=== PATIENT | male | born 1975 | race Caucasian/White ===

== ENCOUNTER 2017-11-22 11:20 | Inpatient (IN) | payer MEDICAID ==
[~2017-11-22] VITALS: Ht 180.3 cm; Wt 63.2 kg
[~2017-11-22 11:20] MED LIST: ESCI10TA PO; OMEP20TA23 PO; THI100T PO
[2017-11-22] MEDS ORDERED: normal saline 1000ML IV soln IVB ONE (11:30)
[2017-11-22 11:49] LABS: BASOPHILS % (AUTO) 0.4 % (0-1); EOSINOPHILS % (AUTO) 0 % (0-6); HEMOGLOBIN 14.6 g/dl (14.0-17.9); LYMPHOCYTES # (AUTO) 0.5 X10'3 (1.1-4.8); LYMPHOCYTES % (AUTO) 11.9 % (21-51); MEAN CORPUSCULAR HEMOGLOBIN 33.5 PG (27.0-31.0); MEAN CORPUSCULAR HGB CONC 34.8 % (33.0-36.5); MEAN CORPUSCULAR VOLUME 96.3 FL (78-98); MEAN PLATELET VOLUME 7.7 FL (7.4-10.4); MONOCYTES # (AUTO) 0.5 X10'3 (0-0.9); MONOCYTES % (AUTO) 11.9 % (2-12); NEUTROPHILS # (AUTO) 3.2 X10'3 (1.8-7.7); NEUTROPHILS % (AUTO) 75.8 % (42-75); RED BLOOD COUNT 4.36 X10'6 (4.70-6.10); RED CELL DISTRIBUTION WIDTH 13.5 % (11.5-14.5); WHITE BLOOD COUNT 4.2 X10'3 (4.5-11.0)
[2017-11-22 12:11] LABS: PLATELET COUNT 46 X10'3 (140-440)
[2017-11-22 12:12] LABS: ALANINE AMINOTRANSFERASE 130 U/L (12-78); ALBUMIN 2.9 G/DL (3.4-5.0); ALKALINE PHOSPHATASE 77 IU/L (46-116); ANION GAP 13 (8-16); ASPARTATE AMINO TRANSFERASE 159 U/L (10-37); BILIRUBIN,TOTAL 2.1 MG/DL (0.1-1.0); BLOOD UREA NITROGEN 5 MG/DL (7-18); BUN/CREATININE RATIO 8.3 (5.4-32.0); CALCIUM 6.4 MG/DL (8.5-10.1); CHLORIDE 98 MMOL/L (99-107); GLUCOSE 102 MG/DL (70-104); PHOSPHORUS 3.7 MG/DL (2.3-4.5); SODIUM 137 MMOL/L (135-145); TOTAL CARBON DIOXIDE 25.6 MMOL/L (24-32); TOTAL PROTEIN 5.9 G/DL (6.4-8.2); eGFR > 90 ML/MIN
[2017-11-22 12:13] LABS: MAGNESIUM 0.3 MG/DL (1.5-2.4); POTASSIUM 2.7 MMOL/L (3.5-5.1)
[2017-11-22] MEDS ORDERED: potassium Cl 20 mEq SR tablet PO ONE (12:20)
[2017-11-22] MEDS ORDERED: magnesium 2GM in 50ml NS 50 ML IV ONE (12:20)
[2017-11-22] MEDS ORDERED: potassium Cl 10 mEq/100mL bag IV ONE (12:20)
[2017-11-22] MEDS ORDERED: LORazepam 2 mg/ml vial IV ONE (12:35)
[2017-11-22] MEDS: potassium 10mEq/100ml NS w/LIDOcaine (10mg/bag) IV SCH ×2 (13:06→14:19)
[2017-11-22] MEDS ORDERED: metoclopramide 5 mg/ml inj IV PRN (13:35)
[2017-11-22] MEDS ORDERED: potassium Cl 20 mEq SR tablet PO PRN (13:35)
[2017-11-22] MEDS ORDERED: magnesium hydroxide 30ml (MOM) UD suspension PO PRN (13:35)
[2017-11-22] MEDS ORDERED: potassium Cl 40MEQ/NS 500ml 500 ML IV PRN ×2 (13:35)
[2017-11-22] MEDS ORDERED: morphine 2 MG/ML inj. syringe IV PRN (13:35)
[2017-11-22] MEDS ORDERED: ondansetron/PF 4mg/2ml inj IV PRN (13:35)
[2017-11-22] MEDS ORDERED: acetaminophen 325mg tablet PO PRN (13:35)
[2017-11-22] MEDS ORDERED: magnesium 4gm in 100ml NS 100 ML IV PRN (13:35)
[2017-11-22] MEDS ORDERED: mag hydrox/Alum hydrox/simeth 30ml oral suspension PO PRN (13:35)
[2017-11-22] MEDS ORDERED: HYDROcodone/acetaminophen 5mg/325mg tablet PO PRN (13:35)
[2017-11-22] MEDS: normal saline 1000ml 1,000 ML IV SCH ×2 (14:19→23:51)
[2017-11-22] MEDS: magnesium 2GM in 50ml NS 50 ML IV PRN (14:19)
[2017-11-22 15:00] VITALS: BP 114/80
[2017-11-22] MEDS: LORazepam 2 mg/ml vial IV PRN ×2 (16:42→23:47)
[2017-11-22] MEDS ORDERED: ARIP2TAB37 PO (17:52)
[2017-11-22] MEDS ORDERED: MIRT15TA PO (17:52)
[2017-11-22] MEDS ORDERED: HYDROXYZINE HCL (17:52)
[2017-11-22] MEDS ORDERED: ESCI20TA38 PO (17:52)
[2017-11-22 20:00] VITALS: BP 103/78
[2017-11-23] VITALS: BP 106/76
[2017-11-23 00:34] LABS: POTASSIUM 2.5 MMOL/L (3.5-5.1)
[2017-11-23 00:35] LABS: MAGNESIUM 0.9 MG/DL (1.5-2.4)
[2017-11-23] MEDS: potassium Cl 20 mEq SR tablet PO PRN ×3 (01:31→12:52)
[2017-11-23 05:58] LABS: BASOPHILS % (AUTO) 0.7 % (0-1); EOSINOPHILS % (AUTO) 0.7 % (0-6); HEMATOCRIT 41.1 % (42.0-52.0); HEMOGLOBIN 14.4 g/dl (14.0-17.9); LYMPHOCYTES # (AUTO) 0.8 X10'3 (1.1-4.8); LYMPHOCYTES % (AUTO) 18.3 % (21-51); MEAN CORPUSCULAR HEMOGLOBIN 33.8 PG (27.0-31.0); MEAN CORPUSCULAR HGB CONC 35.1 % (33.0-36.5); MEAN CORPUSCULAR VOLUME 96.2 FL (78-98); MEAN PLATELET VOLUME 8.9 FL (7.4-10.4); MONOCYTES # (AUTO) 0.6 X10'3 (0-0.9); MONOCYTES % (AUTO) 14.4 % (2-12); NEUTROPHILS # (AUTO) 2.7 X10'3 (1.8-7.7); NEUTROPHILS % (AUTO) 65.9 % (42-75); RED BLOOD COUNT 4.27 X10'6 (4.70-6.10); WHITE BLOOD COUNT 4.2 X10'3 (4.5-11.0)
[2017-11-23 06:14] LABS: PLATELET COUNT 48 X10'3 (140-440)
[2017-11-23 06:22] LABS: ALBUMIN 2.8 G/DL (3.4-5.0); ANION GAP 9 (8-16); BLOOD UREA NITROGEN 4 MG/DL (7-18); BUN/CREATININE RATIO 5.7 (5.4-32.0); CALCIUM 7.1 MG/DL (8.5-10.1); CHLORIDE 102 MMOL/L (99-107); GLUCOSE 108 MG/DL (70-104); MAGNESIUM 2.2 MG/DL (1.5-2.4); SODIUM 142 MMOL/L (135-145); eGFR > 90 ML/MIN
[2017-11-23 06:24] LABS: POTASSIUM 2.5 MMOL/L (3.5-5.1)
[2017-11-23 07:00] VITALS: BP 115/96
[2017-11-23] MEDS: LORazepam 2 mg/ml vial IV PRN ×8 (07:04→21:05)
[2017-11-23] MEDS: thiamine 100mg tablet PO SCH (07:05)
[2017-11-23] MEDS: pantoprazole 40mg Tablet.DR PO SCH (07:05)
[2017-11-23] MEDS: folic acid 1mg tablet PO SCH (07:05)
[2017-11-23] MEDS: magnesium 2GM in 50ml NS 50 ML IV PRN (07:06)
[2017-11-23] MEDS: K and/or MAG REPLACEMENT MC SCH (07:12)
[2017-11-23] MEDS ORDERED: OMEPRAZOLE MAGNESIUM PO SCH (08:00)
[2017-11-23] MEDS ORDERED: thiamine 100mg tablet PO SCH (08:00)
[2017-11-23] MEDS: citalopram 20mg tablet PO SCH (08:00)
[2017-11-23] MEDS: normal saline 1000ml 1,000 ML IV SCH ×2 (09:32→13:01)
[2017-11-23] MEDS ORDERED: haloperidol lactate 5mg/ml inj IM PRN (10:40)
[2017-11-23] MEDS ORDERED: dextrose 50%-water 50ml dispensing syringe IV PRN (10:40)
[2017-11-23 14:25] VITALS: BP 111/70
[2017-11-23 16:34] LABS: MAGNESIUM 1.6 MG/DL (1.5-2.4); POTASSIUM 3.1 MMOL/L (3.5-5.1)
[2017-11-23] MEDS: nicotine 21mg patch - 24 hr TD SCH (17:41)
[2017-11-23 20:00] VITALS: BP 108/74
[2017-11-23] MEDS: mirtazapine 15mg tablet PO SCH ×2 (21:00→22:29)
[2017-11-24] VITALS: BP 92/67
[2017-11-24] MEDS: normal saline 1000ml 1,000 ML IV SCH ×2 (00:48→09:37)
[2017-11-24 05:41] LABS: BASOPHILS % (AUTO) 0.6 % (0-1); EOSINOPHILS # (AUTO) 0.1 X10'3 (0-0.9); EOSINOPHILS % (AUTO) 1.6 % (0-6); HEMATOCRIT 37.3 % (42.0-52.0); HEMOGLOBIN 12.8 g/dl (14.0-17.9); LYMPHOCYTES # (AUTO) 0.9 X10'3 (1.1-4.8); LYMPHOCYTES % (AUTO) 27.4 % (21-51); MEAN CORPUSCULAR HEMOGLOBIN 33.3 PG (27.0-31.0); MEAN CORPUSCULAR HGB CONC 34.3 % (33.0-36.5); MEAN PLATELET VOLUME 8.9 FL (7.4-10.4); MONOCYTES # (AUTO) 0.5 X10'3 (0-0.9); MONOCYTES % (AUTO) 14.3 % (2-12); NEUTROPHILS # (AUTO) 1.8 X10'3 (1.8-7.7); NEUTROPHILS % (AUTO) 56.1 % (42-75); RED BLOOD COUNT 3.85 X10'6 (4.70-6.10); RED CELL DISTRIBUTION WIDTH 13.9 % (11.5-14.5); WHITE BLOOD COUNT 3.2 X10'3 (4.5-11.0)
[2017-11-24 05:47] LABS: ALBUMIN 2.5 G/DL (3.4-5.0); ANION GAP 8 (8-16); BLOOD UREA NITROGEN 4 MG/DL (7-18); CALCIUM 6.7 MG/DL (8.5-10.1); CHLORIDE 107 MMOL/L (99-107); GLUCOSE 98 MG/DL (70-104); MAGNESIUM 1.2 MG/DL (1.5-2.4); SODIUM 142 MMOL/L (135-145); TOTAL CARBON DIOXIDE 26.6 MMOL/L (24-32); eGFR > 90 ML/MIN
[2017-11-24 06:11] LABS: PLATELET COUNT 44 X10'3 (140-440)
[2017-11-24 07:05] VITALS: BP 111/78
[2017-11-24] MEDS: folic acid 1mg tablet PO SCH (07:36)
[2017-11-24] MEDS: pantoprazole 40mg Tablet.DR PO SCH (07:36)
[2017-11-24] MEDS: citalopram 20mg tablet PO SCH (07:36)
[2017-11-24] MEDS: magnesium Cl slow-release 64mg tablet PO PRN ×2 (07:37→14:01)
[2017-11-24] MEDS: thiamine 100mg tablet PO SCH (07:37)
[2017-11-24] MEDS: nicotine 21mg patch - 24 hr TD SCH (07:38)
[2017-11-24] MEDS: potassium Cl 20 mEq SR tablet PO PRN ×2 (07:38→12:51)
[2017-11-24] MEDS: K and/or MAG REPLACEMENT MC SCH (07:39)
[2017-11-24] MEDS: LORazepam 2 mg/ml vial IV PRN ×5 (07:45→17:21)
[2017-11-24 10:45] LABS: C DIFF ANTIGEN NEGATIVE (NEGATIVE); C DIFF SPECIMEN=DIARRHEA? ACCEPTABLE; C DIFFICILE TOXINS A&B NEGATIVE (Neg)
[2017-11-24 11:00] VITALS: BP 111/78
[2017-11-24] MEDS ORDERED: LORA1TAB PO (17:34)
== END 2017-11-24 18:22 | disposition home or self-care (01) | DRG 775 ==
LOC: ER 11:20 → ED HOLD 13:32 → EDBEDREQ 14:38 → SUR 3N 14:58
PROVIDERS: ADMIT Internal Medicine; ATTEND Internal Medicine
DX: F10.239 Alcohol dependence with withdrawal, unspecified (principal); E43 Unspecified severe protein-calorie malnutrition; D69.6 Thrombocytopenia, unspecified; K70.10 Alcoholic hepatitis without ascites; E83.42 Hypomagnesemia; E86.0 Dehydration; E87.6 Hypokalemia; Y90.0 Blood alcohol level of less than 20 mg/100 ml; F12.90 Cannabis use, unspecified, uncomplicated; F17.210 Nicotine dependence, cigarettes, uncomplicated; I10 Essential (primary) hypertension; Z79.899 Other long term (current) drug therapy; Z71.6 Tobacco abuse counseling; Z68.1 Body mass index [BMI] 19.9 or less, adult
CPT/HCPCS: 36415; 80048; 80053; 80320; 82948; 83735; 84100; 84132; 84443; 85025; 87070; 87324; 87449; 96360; 99285; J1630; J2060; J3475; J3480; J7030

== ENCOUNTER 2018-03-09 08:56 | Inpatient (IN) | payer MEDICAID ==
[~2018-03-09] VITALS: Ht 180.3 cm; Wt 82.7 kg
[~2018-03-09 08:56] MED LIST changes: +0.9 % SODIUM CHLORIDE 10 ML VIAL ONE; +ARIP2TAB37 PO; -ESCI10TA PO; +ESCI20TA38 PO; +HYDROXYZINE HCL; +MIRT15TA PO; +amiodarone 50MG/ML inj IV ONE; +etomidate 2mg/ml inj. ONE; +rocuronium 10mg/ml inj IV ONE
[2018-03-09] MEDS ORDERED: phenobarbital inj 260 MG in normal saline 100ml IV soln 99 ML IV STA (09:29)
[2018-03-09] MEDS ORDERED: normal saline 1000ML IV soln IVB ONE ×2 (09:30→10:25)
[2018-03-09] MEDS ORDERED: thiamine inj. 100 MG in normal saline 100ml IV soln 99 ML IV ONE (09:30)
[2018-03-09] MEDS ORDERED: ondansetron/PF 4mg/2ml inj IV ONE (09:30)
[2018-03-09] MEDS ORDERED: magnesium 2GM in 50ml NS 50 ML IV ONE (09:30)
[2018-03-09 09:40] LABS: BASOPHILS % (AUTO) 0.3 % (0-1); EOSINOPHILS % (AUTO) 0.2 % (0-6); HEMATOCRIT 49.8 % (42.0-52.0); LYMPHOCYTES # (AUTO) 1.3 X10'3 (1.1-4.8); LYMPHOCYTES % (AUTO) 13.7 % (21-51); MEAN CORPUSCULAR HEMOGLOBIN 32.8 PG (27.0-31.0); MEAN CORPUSCULAR HGB CONC 34.1 % (33.0-36.5); MEAN PLATELET VOLUME 7.9 FL (7.4-10.4); MONOCYTES # (AUTO) 0.8 X10'3 (0-0.9); MONOCYTES % (AUTO) 8.8 % (2-12); NEUTROPHILS # (AUTO) 7.2 X10'3 (1.8-7.7); RED BLOOD COUNT 5.18 X10'6 (4.70-6.10); RED CELL DISTRIBUTION WIDTH 14.6 % (11.5-14.5); WHITE BLOOD COUNT 9.3 X10'3 (4.5-11.0)
[2018-03-09 09:52] LABS: PLATELET COUNT 91 X10'3 (140-440)
[2018-03-09 09:59] LABS: ALANINE AMINOTRANSFERASE 63 U/L (12-78); ALBUMIN 3.3 G/DL (3.4-5.0); ALBUMIN/GLOBULIN RATIO 0.9 (1.1-1.5); ALKALINE PHOSPHATASE 90 IU/L (46-116); ANION GAP 23 (8-16); ASPARTATE AMINO TRANSFERASE 92 U/L (10-37); BILIRUBIN,TOTAL 1.5 MG/DL (0.1-1.0); BLOOD UREA NITROGEN 9 MG/DL (7-18); BUN/CREATININE RATIO 7.7 (5.4-32.0); CALCIUM 6.9 MG/DL (8.5-10.1); CHLORIDE 100 MMOL/L (99-107); CREATININE 1.17 MG/DL (0.60-1.10); ETHANOL < 0.010 GM/DL (0.0-0.010); GLUCOSE 173 MG/DL (70-104); SODIUM 140 MMOL/L (135-145); TOTAL CARBON DIOXIDE 16.8 MMOL/L (24-32); eGFR 68 ML/MIN
[2018-03-09 10:04] LABS: MAGNESIUM 0.9 MG/DL (1.5-2.4); POTASSIUM 2.8 MMOL/L (3.5-5.1)
[2018-03-09] MEDS ORDERED: potassium Cl 20 mEq SR tablet PO ONE (10:25)
[2018-03-09] MEDS: potassium 10mEq/100ml NS w/LIDOcaine (10mg/bag) IV SCH ×2 (10:48→12:25)
[2018-03-09] MEDS ORDERED: normal saline 1000ML IV soln IV ONE (11:25)
[2018-03-09] MEDS ORDERED: CefTRIAXone 2gm/D5W 50ml 50 ML IV ONE (11:25)
[2018-03-09] MEDS ORDERED: azithromycin 250mg tablet PO ONE (11:25)
[2018-03-09] MEDS ORDERED: phenobarbital inj 130 MG in normal saline 100ml IV soln 99 ML IV PRN (11:45)
[2018-03-09] MEDS ORDERED: acetaminophen 325mg tablet PO PRN (11:50)
[2018-03-09] MEDS ORDERED: mag hydrox/Alum hydrox/simeth 30ml oral suspension PO PRN (11:50)
[2018-03-09] MEDS ORDERED: ondansetron/PF 4mg/2ml inj IV PRN (11:50)
[2018-03-09] MEDS ORDERED: magnesium hydroxide 30ml (MOM) UD suspension PO PRN (11:50)
[2018-03-09] MEDS ORDERED: thiamine inj. 100 MG in normal saline 100ml IV soln 100 ML IV ONE (12:10)
[2018-03-09] MEDS: normal saline 1000ml 1,000 ML IV SCH ×2 (12:25→21:57)
[2018-03-09 13:12] LABS: CLARITY,URINE CLEAR (Clear); COLOR,URINE YELLOW (Yellow); GLUCOSE, URINE NEGATIVE (Neg); KETONES,URINE TRACE mg/dl (Neg); LEUKOCYTE ESTERASE ,URINE NEGATIVE (Neg); OCCULT BLOOD,URINE TRACE-INTACT (Neg); PROTEIN,URINE 100 mg/dl (Neg)
[2018-03-09 13:13] LABS: UA COLLECTION TYPE CLN CATCH MIDSTREAM
[2018-03-09 13:18] LABS: NITRITES, URINE NEGATIVE (Neg)
[2018-03-09 13:19] LABS: AMORPHOUS URATES 1+; BACTERIA,URINE FEW /HPF (Neg); HYALINE CASTS 0-3 /LPF (NEGATIVE); MUCUS STRANDS FEW /LPF (Neg); RBC,URINE 0-2 /HPF (0-2); SQUAMOUS EPITHELIAL CELL,UR FEW /LPF (FEW); WBC,URINE 0-4 /HPF (0-4)
[2018-03-09 13:29] LABS: URINE AMPHETAMINE SCREEN NEGATIVE (Neg); URINE BARBITUATE SCREEN POSITIVE (Neg); URINE BENZODIAZEPINES SCREEN NEGATIVE (Neg); URINE CANNABINOID SCREEN POSITIVE (Neg); URINE COCAINE SCREEN NEGATIVE (Neg); URINE METHADONE SCREEN NEGATIVE (Neg); URINE OPIATE SCREEN NEGATIVE (Neg); URINE PHENCYCLIDINE SCREEN NEGATIVE (Neg)
[2018-03-09 14:20] VITALS: BP 101/71
[2018-03-09] MEDS: LORazepam 1 MG tablet PO PRN ×4 (14:38→21:46)
[2018-03-09 15:00] VITALS: BP 101/78
[2018-03-09 19:00] VITALS: BP 103/64
[2018-03-09] MEDS ORDERED: potassium Cl 20 mEq SR tablet PO PRN (21:40)
[2018-03-09] MEDS ORDERED: magnesium Cl slow-release 64mg tablet PO PRN (21:40)
[2018-03-09] MEDS ORDERED: magnesium 2GM in 50ml NS 50 ML IV PRN (21:40)
[2018-03-09] MEDS ORDERED: potassium Cl 40MEQ/NS 500ml 500 ML IV PRN ×2 (21:40)
[2018-03-09] MEDS ORDERED: magnesium 4gm in 100ml NS 100 ML IV PRN (21:40)
[2018-03-09] MEDS: HYDROcodone/acetaminophen 10/325mg tab PO PRN (21:46)
[2018-03-09] MEDS: mirtazapine 15mg tablet PO SCH (21:46)
[2018-03-09] MEDS: citalopram 20mg tablet PO SCH (21:47)
[2018-03-09 23:00] VITALS: BP 104/78
[2018-03-09] MEDS: LORazepam 2 mg/ml vial IV PRN (23:57)
[2018-03-10] VITALS (12 sets, daily range): BP systolic 79–139; BP diastolic 65–99
[2018-03-10 00:30] LABS: MAGNESIUM 1.1 MG/DL (1.5-2.4)
[2018-03-10 01:00] LABS: POTASSIUM 2.7 MMOL/L (3.5-5.1)
[2018-03-10] MEDS: potassium Cl 20 mEq SR tablet PO PRN ×2 (01:03→05:14)
[2018-03-10] MEDS: LORazepam 2 mg/ml vial IV PRN ×6 (02:03→16:09)
[2018-03-10 05:23] LABS: BASOPHILS % (AUTO) 0.3 % (0-1); EOSINOPHILS # (AUTO) 0.1 X10'3 (0-0.9); EOSINOPHILS % (AUTO) 1.2 % (0-6); HEMATOCRIT 40.5 % (42.0-52.0); HEMOGLOBIN 13.9 g/dl (14.0-17.9); LYMPHOCYTES # (AUTO) 1.5 X10'3 (1.1-4.8); LYMPHOCYTES % (AUTO) 17.7 % (21-51); MEAN CORPUSCULAR HEMOGLOBIN 33.4 PG (27.0-31.0); MEAN CORPUSCULAR HGB CONC 34.3 % (33.0-36.5); MEAN CORPUSCULAR VOLUME 97.6 FL (78-98); MEAN PLATELET VOLUME 8.5 FL (7.4-10.4); MONOCYTES # (AUTO) 0.9 X10'3 (0-0.9); MONOCYTES % (AUTO) 10.8 % (2-12); NEUTROPHILS # (AUTO) 6.1 X10'3 (1.8-7.7); PLATELET COUNT 73 X10'3 (140-440); RED BLOOD COUNT 4.15 X10'6 (4.70-6.10); RED CELL DISTRIBUTION WIDTH 14.1 % (11.5-14.5); WHITE BLOOD COUNT 8.7 X10'3 (4.5-11.0)
[2018-03-10 05:40] LABS: INR 1.1 INR; PROTHROMBIN TIME 11.6 SECONDS (9.0-12.0)
[2018-03-10 05:53] LABS: ALANINE AMINOTRANSFERASE 53 U/L (12-78); ALBUMIN 2.6 G/DL (3.4-5.0); ALBUMIN/GLOBULIN RATIO 0.9 (1.1-1.5); ALKALINE PHOSPHATASE 65 IU/L (46-116); AMYLASE 101 U/L (25-115); ANION GAP 10 (8-16); ASPARTATE AMINO TRANSFERASE 83 U/L (10-37); BLOOD UREA NITROGEN 5 MG/DL (7-18); CALCIUM 6.6 MG/DL (8.5-10.1); CHLORIDE 109 MMOL/L (99-107); CREATININE 0.84 MG/DL (0.60-1.10); GLUCOSE 71 MG/DL (70-104); LIPASE 70 U/L (73-393); SODIUM 145 MMOL/L (135-145); TOTAL CARBON DIOXIDE 25.9 MMOL/L (24-32); TOTAL PROTEIN 5.4 G/DL (6.4-8.2); eGFR > 90 ML/MIN
[2018-03-10] MEDS ORDERED: multivitamins, therapeutics tablet PO SCH (08:00)
[2018-03-10] MEDS ORDERED: pantoprazole 40mg Tablet.DR PO SCH (08:00)
[2018-03-10] MEDS ORDERED: folic acid inj. 2 MG, thiamine inj. 100 MG, MVI, adult No.4 with vit. K 10 ML in dextro... IV SCH ×4 (08:00)
[2018-03-10] MEDS ORDERED: folic acid 1mg tablet PO SCH (08:00)
[2018-03-10] MEDS ORDERED: thiamine 100mg tablet PO SCH (08:00)
[2018-03-10] MEDS: normal saline 1000ml 1,000 ML IV SCH ×2 (08:14→18:54)
[2018-03-10] MEDS ORDERED: dextrose 50%-water 50ml dispensing syringe IV ONE (10:21)
[2018-03-10 10:35] LABS: ABG BASE EXCESS -7.2 mmol/L (-2.0-3.0); ABG HCO3 19.4 mmol/L (22.0-26.0); ABG OXYGEN SATURATION 91.2 % (95-98); ABG PCO2 (T) 42.7 mmHg (35.0-48.0); ABG PH (T) 7.275 (7.350-7.450); ABG PO2 (T) 71.9 mmHg (83-108); ALLEN'S TEST Positive; FCOHb 1.8 % (0.5-1.5); FLOW 15 L/min; FMetHb 0.3 % (0.3-1.12); FO2Hb 89.3 % (94-100); RESPIRATORY RATE (OBSERVED) 42 b/min; TOTAL HEMOGLOBIN 15.3 G/dl (14.0-18.0)
[2018-03-10] MEDS ORDERED: normal saline 1000ml 1,000 ML IV STA (10:37)
[2018-03-10] MEDS ORDERED: normal saline 1000ml 1,000 ML IV ONE ×3 (10:40→19:40)
[2018-03-10] MEDS: enoxaparin 40mg/0.4ml syringe SQ SCH (11:00)
[2018-03-10] MEDS ORDERED: nicotine 21mg patch - 24 hr TD ONE (15:00)
[2018-03-10] MEDS ORDERED: LORazepam 1 MG tablet PO PRN (15:00)
[2018-03-10] MEDS ORDERED: haloperidol lactate 5mg/ml inj IM ONE (15:45)
[2018-03-10] MEDS ORDERED: MIDAZolam 5mg/ml 2ml vial ONE (16:31)
[2018-03-10 17:30] LABS: ABG HCO3 19.8 mmol/L (22.0-26.0); ABG OXYGEN SATURATION 86.4 % (95-98); ABG PCO2 (T) 64.4 mmHg (35.0-48.0); ABG PH (T) 7.116 (7.350-7.450); ABG PO2 (T) 76.2 mmHg (83-108); FCOHb 1.4 % (0.5-1.5); FMetHb 0.1 % (0.3-1.12); FO2Hb 85.1 % (94-100); MINUTE VOLUME 8 L/min; PATIENT TEMPERATURE 38.9; PEEP 5 cm H2O; RESPIRATORY RATE 18 b/min; RESPIRATORY RATE (OBSERVED) 18 b/min; TIDAL VOLUME 450 mL; TOTAL HEMOGLOBIN 15.6 G/dl (14.0-18.0)
[2018-03-10] MEDS: FENTANYL-0.9 % NACL/PF 100 ML IV PRN (17:31)
[2018-03-10] MEDS: midazolam 100mg in NS 100ml 100 ML IV PRN (17:31)
[2018-03-10] MEDS: sodium bicarbonate (8.4%) inj. 150 MEQ in dextrose 5%-water 1,000 ML IV SCH (20:27)
[2018-03-10] MEDS: citalopram 20mg tablet PO SCH (21:00)
[2018-03-10] MEDS: mirtazapine 15mg tablet PO SCH (21:00)
[2018-03-10] MEDS ORDERED: NORepinephrine 8mg/ 250ml NS 250 ML IV ONE (22:57)
[2018-03-10] MEDS ORDERED: LORazepam 2 mg/ml vial IV PRN (23:00)
[2018-03-10] MEDS ORDERED: normal saline 1000ml 1,000 ML IVB ONE (23:32)
[2018-03-10] MEDS: piperacillin/tazo 4.5gm/100ml 100 ML IV SCH (23:45)
[2018-03-10] MEDS: NORepinephrine 8mg/ 250ml NS 250 ML IV PRN (23:52)
[2018-03-11] VITALS (24 sets, daily range): BP systolic 65–128; BP diastolic 47–94
[2018-03-11] MEDS: hydrocortisone sod succ/PF 100mg/2ml inj. IV SCH ×4 (02:09→20:52)
[2018-03-11 02:51] LABS: BASOPHILS % (AUTO) 0.2 % (0-1); EOSINOPHILS # (AUTO) 0.1 X10'3 (0-0.9); EOSINOPHILS % (AUTO) 0.7 % (0-6); HEMATOCRIT 42.5 % (42.0-52.0); HEMOGLOBIN 14.6 g/dl (14.0-17.9); LYMPHOCYTES # (AUTO) 1.8 X10'3 (1.1-4.8); MEAN CORPUSCULAR HEMOGLOBIN 33.6 PG (27.0-31.0); MEAN CORPUSCULAR HGB CONC 34.3 % (33.0-36.5); MEAN CORPUSCULAR VOLUME 98.1 FL (78-98); MEAN PLATELET VOLUME 8.4 FL (7.4-10.4); MONOCYTES # (AUTO) 1.4 X10'3 (0-0.9); MONOCYTES % (AUTO) 9.4 % (2-12); NEUTROPHILS # (AUTO) 11.6 X10'3 (1.8-7.7); NEUTROPHILS % (AUTO) 77.7 % (42-75); PLATELET COUNT 104 X10'3 (140-440); RED BLOOD COUNT 4.34 X10'6 (4.70-6.10); RED CELL DISTRIBUTION WIDTH 14.6 % (11.5-14.5); WHITE BLOOD COUNT 14.9 X10'3 (4.5-11.0)
[2018-03-11] MEDS ORDERED: vancomycin/NS 1 GM ADD-VANTAGE 250 ML IV SCH (03:00)
[2018-03-11 03:01] LABS: INR 1.1 INR; PROTHROMBIN TIME 11.8 SECONDS (9.0-12.0)
[2018-03-11 03:07] LABS: ALANINE AMINOTRANSFERASE 54 U/L (12-78); ALBUMIN 2.5 G/DL (3.4-5.0); ALBUMIN/GLOBULIN RATIO 0.8 (1.1-1.5); ALKALINE PHOSPHATASE 59 IU/L (46-116); AMYLASE 41 U/L (25-115); ANION GAP 12 (8-16); ASPARTATE AMINO TRANSFERASE 72 U/L (10-37); BILIRUBIN,TOTAL 1.7 MG/DL (0.1-1.0); BLOOD UREA NITROGEN 5 MG/DL (7-18); BUN/CREATININE RATIO 6.8 (5.4-32.0); CALCIUM 6.4 MG/DL (8.5-10.1); CHLORIDE 107 MMOL/L (99-107); CREATININE 0.73 MG/DL (0.60-1.10); GLUCOSE 141 MG/DL (70-104); LIPASE < 50 U/L (73-393); MAGNESIUM 1.6 MG/DL (1.5-2.4); PHOSPHORUS 4.3 MG/DL (2.3-4.5); POTASSIUM 3.7 MMOL/L (3.5-5.1); SODIUM 141 MMOL/L (135-145); TOTAL CARBON DIOXIDE 22.4 MMOL/L (24-32); TOTAL PROTEIN 5.5 G/DL (6.4-8.2); eGFR > 90 ML/MIN
[2018-03-11 03:41] LABS: ABG BASE EXCESS -8.1 mmol/L (-2.0-3.0); ABG HCO3 20.6 mmol/L (22.0-26.0); ABG OXYGEN SATURATION 75.5 % (95-98); ABG PCO2 (T) 57.4 mmHg (35.0-48.0); ABG PH (T) 7.179 (7.350-7.450); ABG PO2 (T) 50.2 mmHg (83-108); FCOHb 1.5 % (0.5-1.5); FMetHb 0.3 % (0.3-1.12); FO2Hb 74.1 % (94-100); MINUTE VOLUME 10 L/min; PEEP 5 cm H2O; RESPIRATORY RATE 20 b/min; RESPIRATORY RATE (OBSERVED) 20 b/min; TIDAL VOLUME 450 mL; TOTAL HEMOGLOBIN 14.9 G/dl (14.0-18.0)
[2018-03-11] MEDS: midazolam 100mg in NS 100ml 100 ML IV PRN ×3 (04:01→23:55)
[2018-03-11 06:06] LABS: ABG BASE EXCESS -7.1 mmol/L (-2.0-3.0); ABG OXYGEN SATURATION 96.7 % (95-98); ABG PCO2 (T) 37.3 mmHg (35.0-48.0); ABG PH (T) 7.308 (7.350-7.450); ABG PO2 (T) 96.8 mmHg (83-108); FCOHb 1.3 % (0.5-1.5); FMetHb 0.1 % (0.3-1.12); FO2Hb 95.3 % (94-100); MINUTE VOLUME 14 L/min; PATIENT TEMPERATURE 38.2; PEEP 5 cm H2O; RESPIRATORY RATE 24 b/min; RESPIRATORY RATE (OBSERVED) 24 b/min; TIDAL VOLUME 450 mL; TOTAL HEMOGLOBIN 14.3 G/dl (14.0-18.0)
[2018-03-11 07:16] LABS: CLARITY,URINE CLEAR (Clear); COLOR,URINE YELLOW (Yellow); GLUCOSE, URINE NEGATIVE (Neg); KETONES,URINE 15 mg/dl (Neg); LEUKOCYTE ESTERASE ,URINE NEGATIVE (Neg); NITRITES, URINE NEGATIVE (Neg); OCCULT BLOOD,URINE MODERATE (Neg); PH,URINE 5.5 (4.8-8.0); PROTEIN,URINE 30 mg/dl (Neg); UROBILINOGEN,URINE 0.2 E.U/dL (0.2-1.0)
[2018-03-11 07:17] LABS: UA COLLECTION TYPE NON-SPECIFIED
[2018-03-11 07:22] LABS: BACTERIA,URINE NONE SEEN /HPF (Neg); WBC,URINE NONE SEEN /HPF (0-4)
[2018-03-11 07:23] LABS: FINE GRANULAR CAST 0-3 /LPF (NEGATIVE); MUCUS STRANDS NONE SEEN /LPF (Neg); SQUAMOUS EPITHELIAL CELL,UR NONE SEEN /LPF (FEW)
[2018-03-11] MEDS: NORepinephrine 8mg/ 250ml NS 250 ML IV PRN ×2 (07:25→23:06)
[2018-03-11] MEDS: vancomycin/NS 1 GM ADD-VANTAGE 250 ML IV SCH ×2 (07:34→17:31)
[2018-03-11] MEDS ORDERED: thiamine 100mg tablet PO SCH (08:00)
[2018-03-11] MEDS ORDERED: multivitamins, therapeutics tablet PO SCH (08:00)
[2018-03-11] MEDS ORDERED: folic acid 1mg tablet PO SCH (08:00)
[2018-03-11] MEDS ORDERED: [UNRECOGNIZED DRUG - REMARK] IV SCH ×4 (08:10)
[2018-03-11] MEDS: enoxaparin 40mg/0.4ml syringe SQ SCH (08:15)
[2018-03-11] MEDS: pantoprazole 40 MG vial IV SCH (08:17)
[2018-03-11] MEDS: nicotine 21mg patch - 24 hr TD SCH (08:18)
[2018-03-11] MEDS: piperacillin/tazo 4.5gm/100ml 100 ML IV SCH ×2 (09:24→16:58)
[2018-03-11] MEDS: [UNRECOGNIZED DRUG - REMARK] IV SCH ×4 (09:24)
[2018-03-11] MEDS: FENTANYL-0.9 % NACL/PF 100 ML IV PRN ×2 (10:21→17:31)
[2018-03-11] MEDS ORDERED: magnesium 2GM in 50ml NS 50 ML IV ONE (10:35)
[2018-03-11] MEDS: sodium bicarbonate (8.4%) inj. 150 MEQ in dextrose 5%-water 1,000 ML IV SCH (11:42)
[2018-03-11 12:45] LABS: ABG HCO3 19.7 mmol/L (22.0-26.0); ABG OXYGEN SATURATION 99.2 % (95-98); ABG PH (T) 7.358 (7.350-7.450); ABG PO2 (T) 193.1 mmHg (83-108); ALLEN'S TEST Positive; FMetHb 0.3 % (0.3-1.12); FO2Hb 97.9 % (94-100); MINUTE VOLUME 12 L/min; PATIENT TEMPERATURE 37.1; PEEP 8 cm H2O; RESPIRATORY RATE 24 b/min; RESPIRATORY RATE (OBSERVED) 24 b/min; TIDAL VOLUME 450 mL; TOTAL HEMOGLOBIN 13.5 G/dl (14.0-18.0)
[2018-03-11] MEDS: ipratropium/albuterol 3ml nebule NEB SCH ×2 (14:41→21:11)
[2018-03-11] MEDS ORDERED: glucagon, human recombinant 1mg kit SUBCUT PRN (20:40)
[2018-03-11] MEDS ORDERED: dextrose 50%-water 50ml dispensing syringe IV PRN ×2 (20:40)
[2018-03-11] MEDS ORDERED: dextrose ORAL solution 15 GM/59 ML bottle PO PRN ×2 (20:40)
[2018-03-11] MEDS: mirtazapine 15mg tablet PO SCH (20:52)
[2018-03-11] MEDS: lactobacillus rhamnosus 10,000 MMU CELLS/CAPSULE PO SCH (20:52)
[2018-03-11] MEDS: citalopram 20mg tablet PO SCH (20:53)
[2018-03-11 21:02] LABS: HEMOGLOBIN A1C 5.2 % (4.5-6.2)
[2018-03-11] MEDS: insulin Lispro (HumaLOG) vial - multi-dose SQ SCH (22:10)
[2018-03-11] MEDS: insulin glargine (Lantus) pen - multi-dose SQ SCH (22:14)
[2018-03-12] VITALS (24 sets, daily range): BP systolic 58–97; BP diastolic 52–71
[2018-03-12] MEDS: piperacillin/tazo 4.5gm/100ml 100 ML IV SCH ×4 (00:07→23:42)
[2018-03-12] MEDS: vancomycin/NS 1 GM ADD-VANTAGE 250 ML IV SCH ×2 (00:08→09:53)
[2018-03-12] MEDS ORDERED: amiodarone/D5 360MG/200ML BAG 200 ML IV ONE (01:57)
[2018-03-12 02:18] LABS: BASOPHILS % (AUTO) 0.2 % (0-1); EOSINOPHILS % (AUTO) 0 % (0-6); HEMOGLOBIN 12.9 g/dl (14.0-17.9); INR 1.1 INR; LYMPHOCYTES # (AUTO) 1.1 X10'3 (1.1-4.8); LYMPHOCYTES % (AUTO) 11.7 % (21-51); MEAN CORPUSCULAR HEMOGLOBIN 33.3 PG (27.0-31.0); MEAN CORPUSCULAR VOLUME 97.9 FL (78-98); MEAN PLATELET VOLUME 7.6 FL (7.4-10.4); MONOCYTES # (AUTO) 0.7 X10'3 (0-0.9); MONOCYTES % (AUTO) 7.3 % (2-12); NEUTROPHILS # (AUTO) 7.8 X10'3 (1.8-7.7); NEUTROPHILS % (AUTO) 80.8 % (42-75); PLATELET COUNT 95 X10'3 (140-440); PROTHROMBIN TIME 11.2 SECONDS (9.0-12.0); RED BLOOD COUNT 3.89 X10'6 (4.70-6.10); RED CELL DISTRIBUTION WIDTH 13.9 % (11.5-14.5); WHITE BLOOD COUNT 9.6 X10'3 (4.5-11.0)
[2018-03-12 02:27] LABS: ALANINE AMINOTRANSFERASE 36 U/L (12-78); ALBUMIN 2.1 G/DL (3.4-5.0); ALBUMIN/GLOBULIN RATIO 0.7 (1.1-1.5); ALKALINE PHOSPHATASE 44 IU/L (46-116); AMYLASE 26 U/L (25-115); ANION GAP 5 (8-16); ASPARTATE AMINO TRANSFERASE 36 U/L (10-37); BILIRUBIN,TOTAL 1.3 MG/DL (0.1-1.0); BLOOD UREA NITROGEN 5 MG/DL (7-18); BUN/CREATININE RATIO 6.5 (5.4-32.0); CALCIUM 6.9 MG/DL (8.5-10.1); CHLORIDE 105 MMOL/L (99-107); CREATININE 0.77 MG/DL (0.60-1.10); GLUCOSE 198 MG/DL (70-104); LIPASE < 50 U/L (73-393); MAGNESIUM 1.7 MG/DL (1.5-2.4); PHOSPHORUS 2.1 MG/DL (2.3-4.5); SODIUM 141 MMOL/L (135-145); eGFR > 90 ML/MIN
[2018-03-12 02:29] LABS: POTASSIUM 2.7 MMOL/L (3.5-5.1)
[2018-03-12] MEDS ORDERED: potassium Cl 40MEQ/250ML bag 250 ML IV PRN (02:35)
[2018-03-12] MEDS: hydrocortisone sod succ/PF 100mg/2ml inj. IV SCH ×4 (02:42→20:28)
[2018-03-12 02:44] LABS: TROPONIN I 0.06 NG/ML (0.0-0.05)
[2018-03-12] MEDS: sodium bicarbonate (8.4%) inj. 150 MEQ in dextrose 5%-water 1,000 ML IV SCH (02:48)
[2018-03-12] MEDS ORDERED: potassium Cl 40MEQ/250ML bag 250 ML IV ONE (02:55)
[2018-03-12] MEDS: insulin Lispro (HumaLOG) vial - multi-dose SQ SCH (03:22)
[2018-03-12] MEDS: ipratropium/albuterol 3ml nebule NEB SCH ×4 (03:42→21:10)
[2018-03-12] MEDS: FENTANYL-0.9 % NACL/PF 100 ML IV PRN ×4 (03:53→21:34)
[2018-03-12 03:55] LABS: ABG BASE EXCESS 5.4 mmol/L (-2.0-3.0); ABG HCO3 29.1 mmol/L (22.0-26.0); ABG OXYGEN SATURATION 99.6 % (95-98); ABG PCO2 (T) 37.2 mmHg (35.0-48.0); ABG PH (T) 7.507 (7.350-7.450); ABG PO2 (T) 320.9 mmHg (83-108); ALLEN'S TEST Positive; FCOHb 0.6 % (0.5-1.5); FMetHb 0.3 % (0.3-1.12); FO2Hb 98.7 % (94-100); MINUTE VOLUME 11 L/min; PATIENT TEMPERATURE 35.7; PEEP 8 cm H2O; RESPIRATORY RATE 24 b/min; RESPIRATORY RATE (OBSERVED) 24 b/min; TIDAL VOLUME 450 mL; TOTAL HEMOGLOBIN 12.7 G/dl (14.0-18.0)
[2018-03-12] MEDS: midazolam 100mg in NS 100ml 100 ML IV PRN ×3 (06:55→20:18)
[2018-03-12] MEDS ORDERED: VANCOMYCIN LEVEL IV ONE (07:30)
[2018-03-12] MEDS: amiodarone/D5 360MG/200ML BAG 200 ML IV SCH ×3 (07:51→17:33)
[2018-03-12] MEDS: [UNRECOGNIZED DRUG - REMARK] IV SCH ×4 (08:43)
[2018-03-12] MEDS: pantoprazole 40 MG vial IV SCH (08:44)
[2018-03-12] MEDS: enoxaparin 40mg/0.4ml syringe SQ SCH (08:44)
[2018-03-12] MEDS: lactobacillus rhamnosus 10,000 MMU CELLS/CAPSULE PO SCH (08:45)
[2018-03-12] MEDS: nicotine 21mg patch - 24 hr TD SCH (08:45)
[2018-03-12] MEDS ORDERED: sodium phosphate inj. 30 MMOL in dextrose 5%-water 250 ML IV PRN (10:30)
[2018-03-12] MEDS ORDERED: sodium phosphate inj. 15 MMOL in dextrose 5%-water 150 ML IV PRN (10:30)
[2018-03-12] MEDS: potassium Cl 40MEQ/250ML bag 250 ML IV PRN ×3 (11:15→22:49)
[2018-03-12] MEDS: propofol 1000mg/100ml bottle 100 ML IV PRN ×2 (11:16→20:29)
[2018-03-12] MEDS ORDERED: acetaminophen 325mg/10.15ml oral unit dose solution CORPAK PRN (11:53)
[2018-03-12] MEDS ORDERED: magnesium hydroxide 30ml (MOM) UD suspension CORPAK PRN (11:53)
[2018-03-12] MEDS ORDERED: mag hydrox/Alum hydrox/simeth 30ml oral suspension CORPAK PRN (11:53)
[2018-03-12] MEDS ORDERED: potassium Cl 20 mEq SR tablet CORPAK PRN ×2 (11:54→11:55)
[2018-03-12] MEDS ORDERED: dextrose ORAL solution 15 GM/59 ML bottle CORPAK PRN ×2 (11:56→12:10)
[2018-03-12 14:12] LABS: MAGNESIUM 1.7 MG/DL (1.5-2.4); POTASSIUM 3.7 MMOL/L (3.5-5.1)
[2018-03-12] MEDS: insulin regular, human vial - multi-dose SQ SCH ×2 (15:40→20:35)
[2018-03-12] MEDS: vancomycin inj 1,250 MG in normal saline 250ml IV soln 250 ML IV SCH ×2 (16:11→23:42)
[2018-03-12 20:12] LABS: MAGNESIUM 1.7 MG/DL (1.5-2.4); PHOSPHORUS 2.4 MG/DL (2.3-4.5)
[2018-03-12 20:20] LABS: POTASSIUM 2.9 MMOL/L (3.5-5.1)
[2018-03-12] MEDS: lactobacillus rhamnosus 10,000 MMU CELLS/CAPSULE CORPAK SCH (20:28)
[2018-03-12] MEDS: citalopram 20mg tablet CORPAK SCH (20:28)
[2018-03-12] MEDS: mirtazapine 15mg tablet CORPAK SCH (20:29)
[2018-03-12] MEDS: insulin glargine (Lantus) pen - multi-dose SQ SCH (20:34)
[2018-03-12] MEDS: NORepinephrine 8mg/ 250ml NS 250 ML IV PRN (22:23)
[2018-03-13] VITALS (24 sets, daily range): BP systolic 92–123; BP diastolic 56–82
[2018-03-13] MEDS: amiodarone/D5 360MG/200ML BAG 200 ML IV SCH ×4 (01:32→19:44)
[2018-03-13] MEDS: hydrocortisone sod succ/PF 100mg/2ml inj. IV SCH ×4 (02:46→20:00)
[2018-03-13] MEDS: insulin regular, human vial - multi-dose SQ SCH ×2 (02:50→20:07)
[2018-03-13 02:51] LABS: BASOPHILS % (AUTO) 0.1 % (0-1); EOSINOPHILS % (AUTO) 0.1 % (0-6); HEMATOCRIT 35.7 % (42.0-52.0); HEMOGLOBIN 11.9 g/dl (14.0-17.9); LYMPHOCYTES # (AUTO) 0.5 X10'3 (1.1-4.8); LYMPHOCYTES % (AUTO) 5.9 % (21-51); MEAN CORPUSCULAR HEMOGLOBIN 32.9 PG (27.0-31.0); MEAN CORPUSCULAR HGB CONC 33.3 % (33.0-36.5); MEAN CORPUSCULAR VOLUME 98.7 FL (78-98); MONOCYTES # (AUTO) 1.1 X10'3 (0-0.9); MONOCYTES % (AUTO) 12.9 % (2-12); PLATELET COUNT 110 X10'3 (140-440); RED BLOOD COUNT 3.62 X10'6 (4.70-6.10); RED CELL DISTRIBUTION WIDTH 14.6 % (11.5-14.5); WHITE BLOOD COUNT 8.6 X10'3 (4.5-11.0)
[2018-03-13] MEDS: FENTANYL-0.9 % NACL/PF 100 ML IV PRN ×3 (02:55→20:44)
[2018-03-13] MEDS: midazolam 100mg in NS 100ml 100 ML IV PRN ×3 (02:56→20:01)
[2018-03-13 02:59] LABS: PROTHROMBIN TIME 9.9 SECONDS (9.0-12.0)
[2018-03-13 03:12] LABS: ALANINE AMINOTRANSFERASE 30 U/L (12-78); ALBUMIN 1.9 G/DL (3.4-5.0); ALBUMIN/GLOBULIN RATIO 0.6 (1.1-1.5); ALKALINE PHOSPHATASE 38 IU/L (46-116); AMYLASE 23 U/L (25-115); ANION GAP 4 (8-16); ASPARTATE AMINO TRANSFERASE 24 U/L (10-37); BILIRUBIN,TOTAL 0.7 MG/DL (0.1-1.0); BLOOD UREA NITROGEN 5 MG/DL (7-18); BUN/CREATININE RATIO 7.8 (5.4-32.0); CALCIUM 7.7 MG/DL (8.5-10.1); CHLORIDE 112 MMOL/L (99-107); CREATININE 0.64 MG/DL (0.60-1.10); GLUCOSE 152 MG/DL (70-104); LIPASE 52 U/L (73-393); MAGNESIUM 1.5 MG/DL (1.5-2.4); PHOSPHORUS 2.1 MG/DL (2.3-4.5); POTASSIUM 3.6 MMOL/L (3.5-5.1); PREALBUMIN 15.5 MG/DL (19-36); SODIUM 148 MMOL/L (135-145); TOTAL CARBON DIOXIDE 31.6 MMOL/L (24-32); TOTAL PROTEIN 4.9 G/DL (6.4-8.2); eGFR > 90 ML/MIN
[2018-03-13] MEDS: ipratropium/albuterol 3ml nebule NEB SCH ×4 (03:40→21:15)
[2018-03-13 03:51] LABS: ABG HCO3 30.2 mmol/L (22.0-26.0); ABG OXYGEN SATURATION 91.8 % (95-98); ABG PCO2 (T) 41.9 mmHg (35.0-48.0); ABG PH (T) 7.475 (7.350-7.450); ABG PO2 (T) 60.7 mmHg (83-108); ALLEN'S TEST Positive; FCOHb 0.7 % (0.5-1.5); FMetHb 0.3 % (0.3-1.12); FO2Hb 90.9 % (94-100); MINUTE VOLUME 12 L/min; PATIENT TEMPERATURE 36.7; PEEP 8 cm H2O; RESPIRATORY RATE 24 b/min; RESPIRATORY RATE (OBSERVED) 24 b/min; TIDAL VOLUME 450 mL; TOTAL HEMOGLOBIN 12.5 G/dl (14.0-18.0)
[2018-03-13] MEDS: [UNRECOGNIZED DRUG - REMARK] IV SCH ×4 (07:50)
[2018-03-13] MEDS: vancomycin inj 1,250 MG in normal saline 250ml IV soln 250 ML IV SCH ×2 (07:50→16:51)
[2018-03-13] MEDS: pantoprazole 40 MG vial IV SCH (07:53)
[2018-03-13] MEDS: enoxaparin 40mg/0.4ml syringe SQ SCH (07:53)
[2018-03-13] MEDS: nicotine 21mg patch - 24 hr TD SCH (07:53)
[2018-03-13] MEDS: piperacillin/tazo 4.5gm/100ml 100 ML IV SCH ×2 (07:54→18:00)
[2018-03-13] MEDS: lactobacillus rhamnosus 10,000 MMU CELLS/CAPSULE CORPAK SCH ×2 (07:54→20:00)
[2018-03-13 09:27] LABS: ALBUMIN 1.9 G/DL (3.4-5.0); ANION GAP 2 (8-16); BLOOD UREA NITROGEN 5 MG/DL (7-18); BUN/CREATININE RATIO 8.8 (5.4-32.0); CALCIUM 7.4 MG/DL (8.5-10.1); CHLORIDE 113 MMOL/L (99-107); CREATININE 0.57 MG/DL (0.60-1.10); GLUCOSE 124 MG/DL (70-104); PHOSPHORUS 2.5 MG/DL (2.3-4.5); SODIUM 148 MMOL/L (135-145); TOTAL CARBON DIOXIDE 32.9 MMOL/L (24-32); eGFR > 90 ML/MIN
[2018-03-13 09:32] LABS: POTASSIUM 2.7 MMOL/L (3.5-5.1)
[2018-03-13] MEDS: propofol 1000mg/100ml bottle 100 ML IV PRN (11:29)
[2018-03-13] MEDS ORDERED: magnesium 2GM in 50ml NS 50 ML IV ONE (12:15)
[2018-03-13] MEDS ORDERED: VANCOMYCIN LEVEL IV ONE (15:30)
[2018-03-13] MEDS: potassium Cl 40MEQ/250ML bag 250 ML IV PRN (16:46)
[2018-03-13] MEDS: citalopram 20mg tablet CORPAK SCH (20:34)
[2018-03-13] MEDS: mirtazapine 15mg tablet CORPAK SCH (20:34)
[2018-03-13] MEDS: insulin glargine (Lantus) pen - multi-dose SQ SCH (20:40)
[2018-03-14] VITALS (24 sets, daily range): BP systolic 100–125; BP diastolic 63–88
[2018-03-14] MEDS: vancomycin inj 1,250 MG in normal saline 250ml IV soln 250 ML IV SCH (00:07)
[2018-03-14] MEDS: piperacillin/tazo 4.5gm/100ml 100 ML IV SCH ×3 (00:07→15:12)
[2018-03-14 00:44] LABS: PROTHROMBIN TIME 10.7 SECONDS (9.0-12.0)
[2018-03-14 00:48] LABS: ALANINE AMINOTRANSFERASE 28 U/L (12-78); ALBUMIN/GLOBULIN RATIO 0.7 (1.1-1.5); ALKALINE PHOSPHATASE 41 IU/L (46-116); AMYLASE 33 U/L (25-115); ANION GAP 3 (8-16); ASPARTATE AMINO TRANSFERASE 36 U/L (10-37); BILIRUBIN,TOTAL 0.8 MG/DL (0.1-1.0); BLOOD UREA NITROGEN 7 MG/DL (7-18); BUN/CREATININE RATIO 9.3 (5.4-32.0); CALCIUM 8.1 MG/DL (8.5-10.1); CHLORIDE 107 MMOL/L (99-107); CREATININE 0.75 MG/DL (0.60-1.10); GLUCOSE 104 MG/DL (70-104); LIPASE < 50 U/L (73-393); MAGNESIUM 1.8 MG/DL (1.5-2.4); SODIUM 147 MMOL/L (135-145); TOTAL CARBON DIOXIDE 36.7 MMOL/L (24-32); eGFR > 90 ML/MIN
[2018-03-14 00:54] LABS: BASOPHILS % (AUTO) 0.3 % (0-1); EOSINOPHILS % (AUTO) 0.1 % (0-6); HEMATOCRIT 35.8 % (42.0-52.0); HEMOGLOBIN 12.2 g/dl (14.0-17.9); LYMPHOCYTES # (AUTO) 0.5 X10'3 (1.1-4.8); LYMPHOCYTES % (AUTO) 8.4 % (21-51); MEAN CORPUSCULAR HEMOGLOBIN 33.1 PG (27.0-31.0); MEAN CORPUSCULAR VOLUME 97.4 FL (78-98); MONOCYTES # (AUTO) 0.7 X10'3 (0-0.9); MONOCYTES % (AUTO) 11.8 % (2-12); NEUTROPHILS # (AUTO) 4.7 X10'3 (1.8-7.7); NEUTROPHILS % (AUTO) 79.4 % (42-75); PLATELET COUNT 106 X10'3 (140-440); RED BLOOD COUNT 3.67 X10'6 (4.70-6.10); RED CELL DISTRIBUTION WIDTH 14.1 % (11.5-14.5); WHITE BLOOD COUNT 5.9 X10'3 (4.5-11.0)
[2018-03-14 00:57] LABS: POTASSIUM 2.6 MMOL/L (3.5-5.1)
[2018-03-14] MEDS ORDERED: potassium Cl oral solution 20 MEQ/15 ML PO ONE (01:10)
[2018-03-14] MEDS ORDERED: potassium Cl 40MEQ/250ML bag 500 ML IV ONE (01:16)
[2018-03-14] MEDS: potassium Cl 40MEQ/250ML bag 250 ML IV PRN ×2 (01:23→03:40)
[2018-03-14] MEDS: amiodarone/D5 360MG/200ML BAG 200 ML IV SCH (01:48)
[2018-03-14] MEDS: hydrocortisone sod succ/PF 100mg/2ml inj. IV SCH ×4 (02:28→21:46)
[2018-03-14] MEDS: midazolam 100mg in NS 100ml 100 ML IV PRN ×2 (02:42→09:08)
[2018-03-14] MEDS: propofol 1000mg/100ml bottle 100 ML IV PRN (02:42)
[2018-03-14] MEDS ORDERED: magnesium 2GM in 50ml NS 50 ML IV ONE (03:05)
[2018-03-14] MEDS: ipratropium/albuterol 3ml nebule NEB SCH ×4 (03:06→20:45)
[2018-03-14 03:21] LABS: ABG BASE EXCESS 10.3 mmol/L (-2.0-3.0); ABG HCO3 34.1 mmol/L (22.0-26.0); ABG OXYGEN SATURATION 93.2 % (95-98); ABG PCO2 (T) 41.3 mmHg (35.0-48.0); ABG PH (T) 7.533 (7.350-7.450); ABG PO2 (T) 63.3 mmHg (83-108); ALLEN'S TEST Positive; FCOHb 0.7 % (0.5-1.5); FMetHb 0.3 % (0.3-1.12); FO2Hb 92.3 % (94-100); MINUTE VOLUME 11 L/min; PATIENT TEMPERATURE 36.5; PEEP 8 cm H2O; RESPIRATORY RATE 24 b/min; RESPIRATORY RATE (OBSERVED) 24 b/min; TIDAL VOLUME 450 mL; TOTAL HEMOGLOBIN 13.4 G/dl (14.0-18.0)
[2018-03-14 04:56] LABS: TOTAL CELLS COUNTED 100
[2018-03-14 04:57] LABS: PLATELET ESTIMATE DECREASED
[2018-03-14 04:58] LABS: TOXIC GRANULATION 1+
[2018-03-14] MEDS: nicotine 21mg patch - 24 hr TD SCH (08:20)
[2018-03-14] MEDS: pantoprazole 40 MG vial IV SCH (08:20)
[2018-03-14] MEDS: lactobacillus rhamnosus 10,000 MMU CELLS/CAPSULE CORPAK SCH ×2 (08:20→20:00)
[2018-03-14] MEDS: enoxaparin 40mg/0.4ml syringe SQ SCH (08:21)
[2018-03-14] MEDS: [UNRECOGNIZED DRUG - REMARK] IV SCH ×4 (08:22)
[2018-03-14 08:38] LABS: MAGNESIUM 2.1 MG/DL (1.5-2.4)
[2018-03-14 08:39] LABS: POTASSIUM 3.9 MMOL/L (3.5-5.1)
[2018-03-14] MEDS ORDERED: bisacodyl 10mg suppository rectal RC PRN (10:45)
[2018-03-14] MEDS: methylnaltrexone br 12mg/0.6ml inj***SubQ only SQ SCH (12:08)
[2018-03-14] MEDS: insulin glargine (Lantus) pen - multi-dose SQ SCH (21:00)
[2018-03-14] MEDS: mirtazapine 15mg tablet CORPAK SCH (21:00)
[2018-03-14] MEDS: citalopram 20mg tablet CORPAK SCH (21:00)
[2018-03-14 23:41] LABS: ABG BASE EXCESS 12.1 mmol/L (-2.0-3.0); ABG HCO3 34.9 mmol/L (22.0-26.0); ABG OXYGEN SATURATION 89.7 % (95-98); ABG PCO2 (T) 39.5 mmHg (35.0-48.0); ABG PH (T) 7.567 (7.350-7.450); ABG PO2 (T) 58.4 mmHg (83-108); ALLEN'S TEST Positive; FCOHb 0.9 % (0.5-1.5); FLOW 15 L/min; FO2Hb 88.9 % (94-100); PATIENT TEMPERATURE 37.8; RESPIRATORY RATE (OBSERVED) 20 b/min; TOTAL HEMOGLOBIN 13.6 G/dl (14.0-18.0)
[2018-03-15] VITALS (24 sets, daily range): BP systolic 103–135; BP diastolic 63–87
[2018-03-15] MEDS: piperacillin/tazo 4.5gm/100ml 100 ML IV SCH ×4 (00:44→23:50)
[2018-03-15 03:14] LABS: ALANINE AMINOTRANSFERASE 26 U/L (12-78); ALBUMIN 2.1 G/DL (3.4-5.0); ALBUMIN/GLOBULIN RATIO 0.7 (1.1-1.5); ALKALINE PHOSPHATASE 39 IU/L (46-116); ANION GAP 4 (8-16); ASPARTATE AMINO TRANSFERASE 26 U/L (10-37); BILIRUBIN,TOTAL 0.9 MG/DL (0.1-1.0); BLOOD UREA NITROGEN 10 MG/DL (7-18); BUN/CREATININE RATIO 13.9 (5.4-32.0); CALCIUM 8.3 MG/DL (8.5-10.1); CHLORIDE 103 MMOL/L (99-107); CREATININE 0.72 MG/DL (0.60-1.10); GLUCOSE 106 MG/DL (70-104); MAGNESIUM 1.6 MG/DL (1.5-2.4); PHOSPHORUS 4.9 MG/DL (2.3-4.5); SODIUM 144 MMOL/L (135-145); TOTAL CARBON DIOXIDE 36.7 MMOL/L (24-32); TOTAL PROTEIN 5.1 G/DL (6.4-8.2); eGFR > 90 ML/MIN
[2018-03-15 03:16] LABS: POTASSIUM 2.1 MMOL/L (3.5-5.1)
[2018-03-15] MEDS: hydrocortisone sod succ/PF 100mg/2ml inj. IV SCH ×4 (03:20→21:19)
[2018-03-15] MEDS ORDERED: potassium Cl 40MEQ/250ML bag 500 ML IV ONE (03:36)
[2018-03-15 03:42] LABS: BASOPHILS % (AUTO) 0 % (0-1); EOSINOPHILS % (AUTO) 0 % (0-6); HEMATOCRIT 37.7 % (42.0-52.0); HEMOGLOBIN 12.7 g/dl (14.0-17.9); LYMPHOCYTES # (AUTO) 0.6 X10'3 (1.1-4.8); LYMPHOCYTES % (AUTO) 7.3 % (21-51); MEAN CORPUSCULAR HEMOGLOBIN 33.1 PG (27.0-31.0); MEAN CORPUSCULAR HGB CONC 33.8 % (33.0-36.5); MEAN CORPUSCULAR VOLUME 98.2 FL (78-98); MEAN PLATELET VOLUME 8.1 FL (7.4-10.4); MONOCYTES # (AUTO) 0.8 X10'3 (0-0.9); MONOCYTES % (AUTO) 9.9 % (2-12); NEUTROPHILS # (AUTO) 7.1 X10'3 (1.8-7.7); NEUTROPHILS % (AUTO) 82.8 % (42-75); PLATELET COUNT 120 X10'3 (140-440); RED BLOOD COUNT 3.84 X10'6 (4.70-6.10); RED CELL DISTRIBUTION WIDTH 14.6 % (11.5-14.5); WHITE BLOOD COUNT 8.6 X10'3 (4.5-11.0)
[2018-03-15] MEDS: potassium Cl 40MEQ/250ML bag 250 ML IV PRN ×2 (04:00→06:12)
[2018-03-15] MEDS: ipratropium/albuterol 3ml nebule NEB SCH ×4 (05:57→21:10)
[2018-03-15] MEDS ORDERED: VANCOMYCIN LEVEL IV ONE (07:30)
[2018-03-15 07:32] LABS: NUCLEATED RED BLOOD CELLS 1 /100WBC (0-0); TOTAL CELLS COUNTED 100
[2018-03-15 07:33] LABS: PLATELET ESTIMATE DECREASED; POLYCHROMASIA 1+; TARGET CELLS FEW; TOXIC GRANULATION 1+
[2018-03-15] MEDS: [UNRECOGNIZED DRUG - REMARK] IV SCH ×4 (07:39)
[2018-03-15] MEDS: pantoprazole 40 MG vial IV SCH (07:39)
[2018-03-15] MEDS: lactobacillus rhamnosus 10,000 MMU CELLS/CAPSULE CORPAK SCH ×2 (07:40→21:20)
[2018-03-15] MEDS: nicotine 21mg patch - 24 hr TD SCH (07:40)
[2018-03-15] MEDS: enoxaparin 40mg/0.4ml syringe SQ SCH (07:40)
[2018-03-15] MEDS: insulin glargine (Lantus) pen - multi-dose SQ SCH (21:00)
[2018-03-15] MEDS: citalopram 20mg tablet CORPAK SCH (21:20)
[2018-03-15] MEDS: mirtazapine 15mg tablet CORPAK SCH (21:20)
[2018-03-16] VITALS (23 sets, daily range): BP systolic 89–128; BP diastolic 57–84
[2018-03-16] MEDS: hydrocortisone sod succ/PF 100mg/2ml inj. IV SCH ×4 (02:07→20:19)
[2018-03-16 02:20] LABS: BASOPHILS % (AUTO) 0.1 % (0-1); EOSINOPHILS % (AUTO) 0 % (0-6); HEMATOCRIT 37.2 % (42.0-52.0); HEMOGLOBIN 12.7 g/dl (14.0-17.9); LYMPHOCYTES # (AUTO) 0.8 X10'3 (1.1-4.8); LYMPHOCYTES % (AUTO) 9.5 % (21-51); MEAN CORPUSCULAR HEMOGLOBIN 33.1 PG (27.0-31.0); MEAN CORPUSCULAR HGB CONC 34.1 % (33.0-36.5); MEAN CORPUSCULAR VOLUME 97.3 FL (78-98); MEAN PLATELET VOLUME 8.3 FL (7.4-10.4); MONOCYTES # (AUTO) 0.8 X10'3 (0-0.9); MONOCYTES % (AUTO) 9.7 % (2-12); NEUTROPHILS % (AUTO) 80.7 % (42-75); PLATELET COUNT 135 X10'3 (140-440); RED BLOOD COUNT 3.83 X10'6 (4.70-6.10); RED CELL DISTRIBUTION WIDTH 14.4 % (11.5-14.5); WHITE BLOOD COUNT 8.7 X10'3 (4.5-11.0)
[2018-03-16 02:36] LABS: ALANINE AMINOTRANSFERASE 24 U/L (12-78); ALBUMIN 1.9 G/DL (3.4-5.0); ALBUMIN/GLOBULIN RATIO 0.6 (1.1-1.5); ALKALINE PHOSPHATASE 37 IU/L (46-116); ANION GAP 6 (8-16); ASPARTATE AMINO TRANSFERASE 34 U/L (10-37); BILIRUBIN,TOTAL 0.8 MG/DL (0.1-1.0); BLOOD UREA NITROGEN 15 MG/DL (7-18); BUN/CREATININE RATIO 17.9 (5.4-32.0); CALCIUM 7.9 MG/DL (8.5-10.1); CHLORIDE 104 MMOL/L (99-107); CREATININE 0.84 MG/DL (0.60-1.10); GLUCOSE 117 MG/DL (70-104); MAGNESIUM 1.4 MG/DL (1.5-2.4); SODIUM 146 MMOL/L (135-145); TOTAL CARBON DIOXIDE 35.6 MMOL/L (24-32); TOTAL PROTEIN 4.9 G/DL (6.4-8.2); eGFR > 90 ML/MIN
[2018-03-16 02:48] LABS: POTASSIUM 2.1 MMOL/L (3.5-5.1)
[2018-03-16] MEDS ORDERED: magnesium 2GM in 50ml NS 50 ML IV PRN (03:10)
[2018-03-16] MEDS ORDERED: potassium Cl 20mEq/100mL bag 100 ML IV ONE (03:12)
[2018-03-16] MEDS: potassium Cl 20 mEq/100mL bag IV PRN ×4 (03:18→06:21)
[2018-03-16] MEDS: ipratropium/albuterol 3ml nebule NEB SCH ×4 (03:31→20:28)
[2018-03-16] MEDS: pantoprazole 40 MG vial IV SCH (08:19)
[2018-03-16] MEDS: lactobacillus rhamnosus 10,000 MMU CELLS/CAPSULE CORPAK SCH ×2 (08:19→20:19)
[2018-03-16] MEDS: methylnaltrexone br 12mg/0.6ml inj***SubQ only SQ SCH (08:20)
[2018-03-16] MEDS: piperacillin/tazo 4.5gm/100ml 100 ML IV SCH ×2 (08:20→16:44)
[2018-03-16] MEDS: enoxaparin 40mg/0.4ml syringe SQ SCH (08:20)
[2018-03-16] MEDS: [UNRECOGNIZED DRUG - REMARK] IV SCH ×4 (08:20)
[2018-03-16] MEDS: nicotine 21mg patch - 24 hr TD SCH (08:21)
[2018-03-16] MEDS: K and/or MAG REPLACEMENT MC SCH (08:22)
[2018-03-16 10:04] LABS: MAGNESIUM 1.9 MG/DL (1.5-2.4)
[2018-03-16 10:07] LABS: POTASSIUM 2.3 MMOL/L (3.5-5.1)
[2018-03-16] MEDS: potassium Cl 40MEQ/250ML bag 250 ML IV PRN ×2 (10:28→12:40)
[2018-03-16] MEDS: citalopram 20mg tablet CORPAK SCH (20:19)
[2018-03-16] MEDS: potassium Cl 20 mEq SR tablet PO PRN (20:19)
[2018-03-16] MEDS: mirtazapine 15mg tablet CORPAK SCH (20:19)
[2018-03-16] MEDS: insulin glargine (Lantus) pen - multi-dose SQ SCH (21:00)
[2018-03-17] VITALS (17 sets, daily range): BP systolic 93–151; BP diastolic 66–92
[2018-03-17] MEDS: piperacillin/tazo 4.5gm/100ml 100 ML IV SCH ×4 (00:10→23:02)
[2018-03-17] MEDS: potassium Cl 20 mEq SR tablet PO PRN ×6 (01:22→20:36)
[2018-03-17] MEDS: hydrocortisone sod succ/PF 100mg/2ml inj. IV SCH ×4 (02:27→20:13)
[2018-03-17] MEDS: ipratropium/albuterol 3ml nebule NEB SCH ×4 (02:48→20:44)
[2018-03-17] MEDS: LORazepam 1 MG tablet CORPAK PRN ×3 (05:32→20:13)
[2018-03-17 05:46] LABS: MAGNESIUM 1.7 MG/DL (1.5-2.4); PREALBUMIN 20.9 MG/DL (19-36)
[2018-03-17 05:48] LABS: POTASSIUM 2.5 MMOL/L (3.5-5.1)
[2018-03-17] MEDS: pantoprazole 40 MG vial IV SCH (07:56)
[2018-03-17] MEDS: lactobacillus rhamnosus 10,000 MMU CELLS/CAPSULE CORPAK SCH ×2 (07:56→20:13)
[2018-03-17] MEDS: enoxaparin 40mg/0.4ml syringe SQ SCH (07:57)
[2018-03-17] MEDS: [UNRECOGNIZED DRUG - REMARK] IV SCH ×4 (07:58)
[2018-03-17] MEDS: nicotine 21mg patch - 24 hr TD SCH (07:58)
[2018-03-17] MEDS: K and/or MAG REPLACEMENT MC SCH ×2 (08:13)
[2018-03-17] MEDS ORDERED: loperamide 2mg capsule PO PRN (10:05)
[2018-03-17 12:09] LABS: BASOPHILS % (AUTO) 0.1 % (0-1); EOSINOPHILS % (AUTO) 0 % (0-6); HEMATOCRIT 38.6 % (42.0-52.0); HEMOGLOBIN 12.9 g/dl (14.0-17.9); LYMPHOCYTES # (AUTO) 0.6 X10'3 (1.1-4.8); LYMPHOCYTES % (AUTO) 6.5 % (21-51); MEAN CORPUSCULAR HEMOGLOBIN 32.7 PG (27.0-31.0); MEAN CORPUSCULAR HGB CONC 33.6 % (33.0-36.5); MEAN CORPUSCULAR VOLUME 97.3 FL (78-98); MEAN PLATELET VOLUME 7.7 FL (7.4-10.4); MONOCYTES # (AUTO) 0.8 X10'3 (0-0.9); MONOCYTES % (AUTO) 9.1 % (2-12); NEUTROPHILS # (AUTO) 7.6 X10'3 (1.8-7.7); NEUTROPHILS % (AUTO) 84.3 % (42-75); PLATELET COUNT 157 X10'3 (140-440); RED BLOOD COUNT 3.96 X10'6 (4.70-6.10)
[2018-03-17 12:23] LABS: ALANINE AMINOTRANSFERASE 35 U/L (12-78); ALBUMIN 2.1 G/DL (3.4-5.0); ALBUMIN/GLOBULIN RATIO 0.7 (1.1-1.5); ALKALINE PHOSPHATASE 35 IU/L (46-116); ANION GAP 3 (8-16); ASPARTATE AMINO TRANSFERASE 38 U/L (10-37); BILIRUBIN,TOTAL 0.7 MG/DL (0.1-1.0); BLOOD UREA NITROGEN 17 MG/DL (7-18); BUN/CREATININE RATIO 20.5 (5.4-32.0); CALCIUM 8.3 MG/DL (8.5-10.1); CHLORIDE 106 MMOL/L (99-107); CREATININE 0.83 MG/DL (0.60-1.10); GLUCOSE 131 MG/DL (70-104); SODIUM 144 MMOL/L (135-145); TOTAL CARBON DIOXIDE 34.9 MMOL/L (24-32); TOTAL PROTEIN 5.2 G/DL (6.4-8.2); eGFR > 90 ML/MIN
[2018-03-17 12:25] LABS: POTASSIUM 2.9 MMOL/L (3.5-5.1)
[2018-03-17] MEDS: mirtazapine 15mg tablet CORPAK SCH (20:13)
[2018-03-17] MEDS: citalopram 20mg tablet CORPAK SCH (20:13)
[2018-03-17] MEDS: insulin glargine (Lantus) pen - multi-dose SQ SCH (20:16)
[2018-03-18] MEDS: hydrocortisone sod succ/PF 100mg/2ml inj. IV SCH ×3 (01:26→20:27)
[2018-03-18] MEDS: ipratropium/albuterol 3ml nebule NEB SCH ×4 (02:39→20:23)
[2018-03-18 05:42] LABS: MAGNESIUM 1.5 MG/DL (1.5-2.4)
[2018-03-18 06:16] LABS: POTASSIUM 2.9 MMOL/L (3.5-5.1)
[2018-03-18 06:30] VITALS: BP 121/82
[2018-03-18] MEDS: pantoprazole 40 MG vial IV SCH (07:31)
[2018-03-18] MEDS: nicotine 21mg patch - 24 hr TD SCH (07:31)
[2018-03-18] MEDS: piperacillin/tazo 4.5gm/100ml 100 ML IV SCH ×3 (07:31→23:50)
[2018-03-18] MEDS: methylnaltrexone br 12mg/0.6ml inj***SubQ only SQ SCH (07:31)
[2018-03-18] MEDS: folic acid 1mg tablet PO SCH (07:31)
[2018-03-18] MEDS: thiamine 100mg tablet PO SCH (07:32)
[2018-03-18] MEDS: multivitamins, therapeutics tablet PO SCH (07:32)
[2018-03-18] MEDS: lactobacillus rhamnosus 10,000 MMU CELLS/CAPSULE CORPAK SCH ×2 (07:32→20:27)
[2018-03-18] MEDS: potassium Cl 20 mEq SR tablet PO PRN ×4 (07:32→21:34)
[2018-03-18] MEDS: enoxaparin 40mg/0.4ml syringe SQ SCH (07:33)
[2018-03-18] MEDS: K and/or MAG REPLACEMENT MC SCH (08:00)
[2018-03-18 11:00] VITALS: BP 123/88
[2018-03-18] MEDS: LORazepam 1 MG tablet CORPAK PRN ×2 (11:55→20:27)
[2018-03-18 15:00] VITALS: BP 127/83
[2018-03-18 19:00] VITALS: BP 124/84
[2018-03-18] MEDS: mirtazapine 15mg tablet CORPAK SCH (20:27)
[2018-03-18] MEDS: magnesium oxide 400mg tablet PO SCH (20:27)
[2018-03-18] MEDS: citalopram 20mg tablet CORPAK SCH (20:27)
[2018-03-18] MEDS: docusate sod 100mg capsule PO SCH (20:27)
[2018-03-18] MEDS: insulin glargine (Lantus) pen - multi-dose SQ SCH (20:28)
[2018-03-18 23:00] VITALS: BP 122/79
[2018-03-19] MEDS: ipratropium/albuterol 3ml nebule NEB SCH ×4 (03:12→20:04)
[2018-03-19 04:54] VITALS: BP 119/90
[2018-03-19 05:24] LABS: BASOPHILS % (AUTO) 0.1 % (0-1); EOSINOPHILS # (AUTO) 0.1 X10'3 (0-0.9); EOSINOPHILS % (AUTO) 1.6 % (0-6); HEMATOCRIT 38.4 % (42.0-52.0); HEMOGLOBIN 12.8 g/dl (14.0-17.9); MEAN CORPUSCULAR HEMOGLOBIN 32.8 PG (27.0-31.0); MEAN CORPUSCULAR HGB CONC 33.3 % (33.0-36.5); MEAN CORPUSCULAR VOLUME 98.6 FL (78-98); MEAN PLATELET VOLUME 8.3 FL (7.4-10.4); MONOCYTES # (AUTO) 0.6 X10'3 (0-0.9); MONOCYTES % (AUTO) 7.5 % (2-12); NEUTROPHILS # (AUTO) 6.7 X10'3 (1.8-7.7); NEUTROPHILS % (AUTO) 78.8 % (42-75); PLATELET COUNT 139 X10'3 (140-440); RED CELL DISTRIBUTION WIDTH 14.1 % (11.5-14.5); WHITE BLOOD COUNT 8.4 X10'3 (4.5-11.0)
[2018-03-19 06:01] LABS: ALANINE AMINOTRANSFERASE 41 U/L (12-78); ALBUMIN 2.2 G/DL (3.4-5.0); ALBUMIN/GLOBULIN RATIO 0.8 (1.1-1.5); ALKALINE PHOSPHATASE 43 IU/L (46-116); ANION GAP 7 (8-16); ASPARTATE AMINO TRANSFERASE 45 U/L (10-37); BILIRUBIN,TOTAL 0.9 MG/DL (0.1-1.0); BLOOD UREA NITROGEN 11 MG/DL (7-18); BUN/CREATININE RATIO 13.1 (5.4-32.0); CALCIUM 8.3 MG/DL (8.5-10.1); CHLORIDE 105 MMOL/L (99-107); CREATININE 0.84 MG/DL (0.60-1.10); GLUCOSE 100 MG/DL (70-104); MAGNESIUM 1.4 MG/DL (1.5-2.4); POTASSIUM 3.3 MMOL/L (3.5-5.1); SODIUM 145 MMOL/L (135-145); TOTAL CARBON DIOXIDE 32.7 MMOL/L (24-32); TOTAL PROTEIN 5.1 G/DL (6.4-8.2); eGFR > 90 ML/MIN
[2018-03-19 06:30] VITALS: BP 115/77
[2018-03-19] MEDS: nicotine 21mg patch - 24 hr TD SCH (07:26)
[2018-03-19] MEDS: enoxaparin 40mg/0.4ml syringe SQ SCH (07:28)
[2018-03-19] MEDS: hydrocortisone sod succ/PF 100mg/2ml inj. IV SCH (07:28)
[2018-03-19] MEDS: magnesium oxide 400mg tablet PO SCH ×2 (07:29→20:14)
[2018-03-19] MEDS: potassium Cl 20 mEq SR tablet PO PRN ×3 (07:29→17:47)
[2018-03-19] MEDS: thiamine 100mg tablet PO SCH (07:29)
[2018-03-19] MEDS: folic acid 1mg tablet PO SCH (07:29)
[2018-03-19] MEDS: lactobacillus rhamnosus 10,000 MMU CELLS/CAPSULE CORPAK SCH ×2 (07:29→20:14)
[2018-03-19] MEDS: multivitamins, therapeutics tablet PO SCH (07:29)
[2018-03-19] MEDS: docusate sod 100mg capsule PO SCH ×2 (07:29→20:14)
[2018-03-19] MEDS: piperacillin/tazo 4.5gm/100ml 100 ML IV SCH ×2 (07:30→16:28)
[2018-03-19] MEDS: pantoprazole 40mg Tablet.DR PO SCH (07:30)
[2018-03-19] MEDS: K and/or MAG REPLACEMENT MC SCH (08:00)
[2018-03-19 11:00] VITALS: BP 109/74
[2018-03-19] MEDS: LORazepam 1 MG tablet CORPAK PRN (14:43)
[2018-03-19 15:00] VITALS: BP 116/83
[2018-03-19] MEDS: furosemide 40mg/4ml inj IV SCH (17:57)
[2018-03-19 19:00] VITALS: BP 116/69
[2018-03-19] MEDS: carVEDilol 3.125mg tablet PO SCH (20:14)
[2018-03-19] MEDS: HYDROcodone/acetaminophen 10/325mg tab PO PRN (20:15)
[2018-03-19] MEDS: mirtazapine 15mg tablet CORPAK SCH (20:47)
[2018-03-19] MEDS: citalopram 20mg tablet CORPAK SCH (20:47)
[2018-03-19] MEDS: insulin glargine (Lantus) pen - multi-dose SQ SCH (21:00)
[2018-03-19] MEDS ORDERED: tamsulosin 0.4mg capsule PO SCH (21:00)
[2018-03-19 23:00] VITALS: BP 96/62
[2018-03-20 03:00] VITALS: BP 141/90
[2018-03-20] MEDS: ipratropium/albuterol 3ml nebule NEB SCH ×3 (03:01→15:41)
[2018-03-20 05:23] LABS: BASOPHILS % (AUTO) 0.2 % (0-1); EOSINOPHILS # (AUTO) 0.2 X10'3 (0-0.9); EOSINOPHILS % (AUTO) 2.7 % (0-6); HEMATOCRIT 37.5 % (42.0-52.0); HEMOGLOBIN 12.7 g/dl (14.0-17.9); LYMPHOCYTES # (AUTO) 1.4 X10'3 (1.1-4.8); LYMPHOCYTES % (AUTO) 16.1 % (21-51); MEAN CORPUSCULAR HEMOGLOBIN 33.2 PG (27.0-31.0); MEAN CORPUSCULAR HGB CONC 33.8 % (33.0-36.5); MEAN CORPUSCULAR VOLUME 98.2 FL (78-98); MEAN PLATELET VOLUME 8.4 FL (7.4-10.4); MONOCYTES # (AUTO) 0.6 X10'3 (0-0.9); MONOCYTES % (AUTO) 6.6 % (2-12); NEUTROPHILS # (AUTO) 6.7 X10'3 (1.8-7.7); NEUTROPHILS % (AUTO) 74.4 % (42-75); PLATELET COUNT 136 X10'3 (140-440); RED BLOOD COUNT 3.82 X10'6 (4.70-6.10); RED CELL DISTRIBUTION WIDTH 14.6 % (11.5-14.5)
[2018-03-20 05:30] VITALS: BP 107/71
[2018-03-20 05:57] LABS: ALBUMIN 2.2 G/DL (3.4-5.0); ANION GAP 5 (8-16); BILIRUBIN,TOTAL 0.8 MG/DL (0.1-1.0); BLOOD UREA NITROGEN 10 MG/DL (7-18); BUN/CREATININE RATIO 10.9 (5.4-32.0); CALCIUM 8.7 MG/DL (8.5-10.1); CHLORIDE 107 MMOL/L (99-107); CREATININE 0.92 MG/DL (0.60-1.10); GLUCOSE 80 MG/DL (70-104); MAGNESIUM 1.1 MG/DL (1.5-2.4); SODIUM 147 MMOL/L (135-145); TOTAL CARBON DIOXIDE 35.5 MMOL/L (24-32); TOTAL PROTEIN 5.1 G/DL (6.4-8.2); eGFR 90 ML/MIN
[2018-03-20 05:58] LABS: ALANINE AMINOTRANSFERASE 45 U/L (12-78); ALBUMIN/GLOBULIN RATIO 0.8 (1.1-1.5); ALKALINE PHOSPHATASE 40 IU/L (46-116); ASPARTATE AMINO TRANSFERASE 41 U/L (10-37); CHOL/HDL RATIO 5.6 (0.00-4.99); CHOLESTEROL 158 MG/DL (0-200); HDL CHOLESTEROL 28 MG/DL (35-60); LDL CHOLESTEROL 117 MG/DL (50-100); PREALBUMIN 23.9 MG/DL (19-36); TRIGLYCERIDES 89 MG/DL (20-135)
[2018-03-20] MEDS ORDERED: potassium Cl 40MEQ/NS 500ml 500 ML IV PRN ×2 (06:25)
[2018-03-20] MEDS ORDERED: magnesium Cl slow-release 64mg tablet PO PRN (06:25)
[2018-03-20] MEDS ORDERED: potassium Cl 20 mEq SR tablet PO PRN (06:25)
[2018-03-20] MEDS ORDERED: magnesium 4gm in 100ml NS 100 ML IV PRN (06:25)
[2018-03-20] MEDS ORDERED: magnesium 2GM in 50ml NS 50 ML IV PRN (06:25)
[2018-03-20] MEDS: pantoprazole 40mg Tablet.DR PO SCH (07:47)
[2018-03-20] MEDS: lactobacillus rhamnosus 10,000 MMU CELLS/CAPSULE CORPAK SCH (07:48)
[2018-03-20] MEDS: multivitamins, therapeutics tablet PO SCH (07:48)
[2018-03-20] MEDS: magnesium oxide 400mg tablet PO SCH (07:48)
[2018-03-20] MEDS: docusate sod 100mg capsule PO SCH (07:48)
[2018-03-20] MEDS: potassium Cl 20 mEq SR tablet PO PRN ×2 (07:48→16:20)
[2018-03-20] MEDS: carVEDilol 3.125mg tablet PO SCH (07:48)
[2018-03-20] MEDS: enoxaparin 40mg/0.4ml syringe SQ SCH (07:49)
[2018-03-20] MEDS: thiamine 100mg tablet PO SCH (07:49)
[2018-03-20] MEDS: folic acid 1mg tablet PO SCH (07:49)
[2018-03-20] MEDS: furosemide 40mg/4ml inj IV SCH (07:49)
[2018-03-20] MEDS: piperacillin/tazo 4.5gm/100ml 100 ML IV SCH ×3 (07:49→15:29)
[2018-03-20] MEDS ORDERED: lisinopril 2.5mg tablet PO SCH (08:00)
[2018-03-20] MEDS ORDERED: aspirin 81mg tablet.DR PO SCH (08:00)
[2018-03-20] MEDS: nicotine 21mg patch - 24 hr TD SCH (08:08)
[2018-03-20] MEDS ORDERED: Potassium Cl inj 40 MEQ in normal saline 250ml IV soln 230 ML IV ONE (08:50)
[2018-03-20] MEDS ORDERED: potassium chloride 10mEq CAPSULE.SA PO ONE (08:50)
[2018-03-20] MEDS: HYDROcodone/acetaminophen 10/325mg tab PO PRN ×2 (09:23→13:33)
[2018-03-20 11:00] VITALS: BP 92/68
[2018-03-20] MEDS ORDERED: magnesium 2GM in 50ml NS 50 ML IV ONE (11:50)
[2018-03-20] MEDS: LORazepam 1 MG tablet CORPAK PRN (13:32)
[2018-03-20 15:00] VITALS: BP 94/63
== END 2018-03-20 17:19 | DRG 133 ==
LOC: ER 08:56 → ED HOLD 11:50 → PCU 3S 14:10 → ICU 2S 03-10 16:45 → PCU 3S 03-17 13:45
PROVIDERS: ADMIT Internal Medicine; ATTEND Family Medicine
PROC: 5A1945Z Respiratory Ventilation, 24-96 Consecutive Hours (ICD-10-PCS; principal; 2018-03-10)
PROC: 0BH17EZ Insertion of Endotracheal Airway into Trachea, Via Natural or Artificial Opening (ICD-10-PCS; 2018-03-10)
PROC: 02HV33Z Insertion of Infusion Device into Superior Vena Cava, Percutaneous Approach (ICD-10-PCS; 2018-03-11)
PROC: 4A10X4Z Monitoring of Central Nervous Electrical Activity, External Approach (ICD-10-PCS; 2018-03-12)
PROC: 5A12012 Performance of Cardiac Output, Single, Manual (ICD-10-PCS; 2018-03-12)
DX: J96.01 Acute respiratory failure with hypoxia (principal); I49.01 Ventricular fibrillation; I50.21 Acute systolic (congestive) heart failure; J18.1 Lobar pneumonia, unspecified organism; F10.231 Alcohol dependence with withdrawal delirium; I95.9 Hypotension, unspecified; E87.2 Acidosis; J44.0 Chronic obstructive pulmonary disease with (acute) lower respiratory infection; I42.9 Cardiomyopathy, unspecified; R56.9 Unspecified convulsions; K59.00 Constipation, unspecified; E83.42 Hypomagnesemia; E87.6 Hypokalemia; F12.90 Cannabis use, unspecified, uncomplicated; F17.200 Nicotine dependence, unspecified, uncomplicated; I46.2 Cardiac arrest due to underlying cardiac condition; N18.9 Chronic kidney disease, unspecified; F32.9 Major depressive disorder, single episode, unspecified; Z79.899 Other long term (current) drug therapy
CPT/HCPCS: 36415; 36600; 71045; 80048; 80053; 80061; 80202; 80305; 80320; 81001; 82150; 82330; 82803; 82948; 83036; 83605; 83690; 83735; 83880; 84100; 84132; 84134; 84145; 84484; 85018; 85025; 85610; 87040; 87070; 92616; 93005; 93306; 94002; 94003; 94640; 94667; 94668; 94760; 95816; 96365; 96367; 96368; 96375; 97116; 97162; 97530; 99285; A4315; A4353; A6212; A6213; A6250; A6257; A6449; A7015; C1751; C1758; C9113; J0282; J0696; J1630; J1650; J1720; J1815; J1940; J2060; J2250; J2405; J2543; J2560; J2704; J3370; J3411; J3475; J3480; J3490; J7030; J7060

== ENCOUNTER 2018-06-02 18:36 | Inpatient (IN) | payer MEDICAID ==
[~2018-06-02] VITALS: Ht 182.9 cm; Wt 73.5 kg
[~2018-06-02 18:36] MED LIST changes: -0.9 % SODIUM CHLORIDE 10 ML VIAL ONE; -THI100T PO; -amiodarone 50MG/ML inj IV ONE; -etomidate 2mg/ml inj. ONE; -rocuronium 10mg/ml inj IV ONE
[2018-06-02] MEDS ORDERED: ringers solution, lactated 1000ml IV soln IV ONE (18:45)
[2018-06-02] MEDS ORDERED: normal saline 1000ML IV soln IVB ONE (18:45)
[2018-06-02] MEDS ORDERED: LORazepam 2 mg/ml vial IV ONE ×2 (18:50→19:10)
[2018-06-02] MEDS ORDERED: albuterol 2.5 MG/3 ML nebule NEB ONE (18:52)
[2018-06-02] MEDS ORDERED: MIDAZolam 5mg/ml 2ml vial IV ONE (19:00)
[2018-06-02 19:04] LABS: BASOPHILS % (AUTO) 0.3 % (0-1); EOSINOPHILS # (AUTO) 0.2 X10'3 (0-0.9); EOSINOPHILS % (AUTO) 1.2 % (0-6); HEMATOCRIT 40.6 % (42.0-52.0); HEMOGLOBIN 13.8 g/dl (14.0-17.9); LYMPHOCYTES # (AUTO) 3.5 X10'3 (1.1-4.8); LYMPHOCYTES % (AUTO) 24.2 % (21-51); MEAN CORPUSCULAR HEMOGLOBIN 32.7 PG (27.0-31.0); MEAN CORPUSCULAR HGB CONC 33.9 % (33.0-36.5); MEAN CORPUSCULAR VOLUME 96.3 FL (78-98); MEAN PLATELET VOLUME 6.6 FL (7.4-10.4); MONOCYTES # (AUTO) 1.4 X10'3 (0-0.9); MONOCYTES % (AUTO) 9.5 % (2-12); NEUTROPHILS # (AUTO) 9.5 X10'3 (1.8-7.7); NEUTROPHILS % (AUTO) 64.8 % (42-75); PLATELET COUNT 238 X10'3 (140-440); RED BLOOD COUNT 4.21 X10'6 (4.70-6.10); RED CELL DISTRIBUTION WIDTH 13.7 % (11.5-14.5); WHITE BLOOD COUNT 14.6 X10'3 (4.5-11.0)
[2018-06-02 19:22] LABS: ALANINE AMINOTRANSFERASE 41 U/L (12-78); ALBUMIN 2.8 G/DL (3.4-5.0); ALBUMIN/GLOBULIN RATIO 0.7 (1.1-1.5); ALKALINE PHOSPHATASE 93 IU/L (46-116); ANION GAP 28 (8-16); ASPARTATE AMINO TRANSFERASE 41 U/L (10-37); BILIRUBIN,TOTAL 0.7 MG/DL (0.1-1.0); BLOOD UREA NITROGEN 8 MG/DL (7-18); BUN/CREATININE RATIO 6.8 (5.4-32.0); CALCIUM 6.6 MG/DL (8.5-10.1); CHLORIDE 96 MMOL/L (99-107); CREATININE 1.17 MG/DL (0.60-1.10); ETHANOL < 0.010 GM/DL (0.0-0.010); GLUCOSE 230 MG/DL (70-104); POTASSIUM 3.7 MMOL/L (3.5-5.1); SODIUM 136 MMOL/L (135-145); TOTAL PROTEIN 6.6 G/DL (6.4-8.2); eGFR 68 ML/MIN
[2018-06-02 19:26] LABS: ABG BASE EXCESS -14.3 mmol/L (-2.0-3.0); ABG HCO3 12.2 mmol/L (22.0-26.0); ABG OXYGEN SATURATION 92.8 % (95-98); ABG PCO2 (T) 30.4 mmHg (35.0-48.0); ABG PO2 (T) 83.8 mmHg (83-108); FCOHb 0.9 % (0.5-1.5); FLOW 10 L/min; FMetHb 0.2 % (0.3-1.12); FO2Hb 91.8 % (94-100); PATIENT TEMPERATURE 36.5; TOTAL HEMOGLOBIN 13.7 G/dl (14.0-18.0)
[2018-06-02 19:28] LABS: MAGNESIUM 0.7 MG/DL (1.5-2.4); TOTAL CARBON DIOXIDE 12.3 MMOL/L (24-32)
[2018-06-02 19:28] LABS: CLARITY,URINE Clear (Clear); COLOR,URINE Yellow (Yellow); GLUCOSE, URINE Negative (Neg); KETONES,URINE Negative (Neg); LEUKOCYTE ESTERASE ,URINE Negative (Neg); NITRITES, URINE Negative (Neg); OCCULT BLOOD,URINE Negative (Neg); PROTEIN,URINE Negative (Neg)
[2018-06-02] MEDS ORDERED: magnesium 4gm in 100ml NS 100 ML IV ONE (19:30)
[2018-06-02 19:33] LABS: UA COLLECTION TYPE FOLEY CATH
[2018-06-02 19:39] LABS: URINE AMPHETAMINE SCREEN NEGATIVE (Neg); URINE BARBITUATE SCREEN NEGATIVE (Neg); URINE BENZODIAZEPINES SCREEN NEGATIVE (Neg); URINE CANNABINOID SCREEN POSITIVE (Neg); URINE COCAINE SCREEN NEGATIVE (Neg); URINE METHADONE SCREEN NEGATIVE (Neg); URINE OPIATE SCREEN NEGATIVE (Neg); URINE PHENCYCLIDINE SCREEN NEGATIVE (Neg)
[2018-06-02] MEDS ORDERED: normal saline 1000ML IV soln IV ONE (19:55)
[2018-06-02] MEDS ORDERED: CefTRIAXone 2gm/D5W 50ml 50 ML IV ONE (19:55)
[2018-06-02] MEDS ORDERED: furosemide 40mg/4ml inj IV ONE (20:35)
[2018-06-02] MEDS ORDERED: LISI2.5T2 PO (20:48)
[2018-06-02] MEDS ORDERED: CARV3.123 PO (20:48)
[2018-06-02] MEDS ORDERED: FURO40TA4 PO (20:48)
[2018-06-02] MEDS ORDERED: ASPI-1130 PO (20:48)
[2018-06-02] MEDS ORDERED: POTA20TA19 PO (20:48)
[2018-06-02] MEDS ORDERED: magnesium 4gm in 100ml NS 100 ML IV PRN (21:50)
[2018-06-02] MEDS ORDERED: potassium Cl 20 mEq SR tablet PO PRN ×2 (21:50)
[2018-06-02] MEDS ORDERED: ipratropium/albuterol 3ml nebule NEB PRN (21:50)
[2018-06-02] MEDS ORDERED: HYDROcodone/acetaminophen 5mg/325mg tablet PO PRN (21:50)
[2018-06-02] MEDS ORDERED: dextrose ORAL solution 15 GM/59 ML bottle PO PRN ×2 (21:50)
[2018-06-02] MEDS ORDERED: ondansetron/PF 4mg/2ml inj IV PRN (21:50)
[2018-06-02] MEDS ORDERED: haloperidol 5mg tablet PO PRN (21:50)
[2018-06-02] MEDS ORDERED: LORazepam 2 mg/ml vial IV PRN (21:50)
[2018-06-02] MEDS ORDERED: acetaminophen 325mg tablet PO PRN ×2 (21:50)
[2018-06-02] MEDS ORDERED: haloperidol lactate 5mg/ml inj IM PRN (21:50)
[2018-06-02] MEDS ORDERED: acetaminophen 650mg rectal suppository RC PRN (21:50)
[2018-06-02] MEDS ORDERED: dextrose 50%-water 50ml dispensing syringe IV PRN ×3 (21:50)
[2018-06-02] MEDS ORDERED: HYDROcodone/acetaminophen 10/325mg tab PO PRN (21:50)
[2018-06-02] MEDS ORDERED: magnesium Cl slow-release 64mg tablet PO PRN (21:50)
[2018-06-02] MEDS ORDERED: glucagon, human recombinant 1mg kit SUBCUT PRN (21:50)
[2018-06-02] MEDS ORDERED: Neutra Phos packet PO PRN (21:50)
[2018-06-02] MEDS ORDERED: potassium Cl 40MEQ/NS 500ml 500 ML IV PRN (21:50)
[2018-06-02] MEDS ORDERED: magnesium 1gm/100ml D5W IVPB 100 ML IV PRN (21:50)
[2018-06-02] MEDS ORDERED: sodium phosphate inj. 15 MMOL in dextrose 5%-water 150 ML IV PRN (21:50)
[2018-06-02] MEDS: K, MAG and/or Phos replacement - Verify level? MC SCH (21:50)
[2018-06-02] MEDS ORDERED: thiamine 100mg/ml 2ml inj. IV ONE (21:50)
[2018-06-02] MEDS ORDERED: morphine 4 MG/ML inj SYRINge IV PRN (21:50)
[2018-06-02] MEDS ORDERED: sodium phosphate inj. 30 MMOL in dextrose 5%-water 250 ML IV PRN (21:50)
[2018-06-02] MEDS ORDERED: magnesium hydroxide 30ml (MOM) UD suspension PO PRN (21:50)
[2018-06-02] MEDS ORDERED: insulin Lispro (HumaLOG) vial - multi-dose SQ SCH (23:05)
[2018-06-02 23:10] VITALS: BP 109/77
[2018-06-03] VITALS (24 sets, daily range): BP systolic 80–111; BP diastolic 56–83
[2018-06-03 00:13] LABS: ALANINE AMINOTRANSFERASE 37 U/L (12-78); ALBUMIN 2.6 G/DL (3.4-5.0); ALBUMIN/GLOBULIN RATIO 0.7 (1.1-1.5); ALKALINE PHOSPHATASE 83 IU/L (46-116); ANION GAP 7 (8-16); ASPARTATE AMINO TRANSFERASE 39 U/L (10-37); BILIRUBIN,TOTAL 0.6 MG/DL (0.1-1.0); BLOOD UREA NITROGEN 7 MG/DL (7-18); BUN/CREATININE RATIO 9.1 (5.4-32.0); CALCIUM 6.5 MG/DL (8.5-10.1); CHLORIDE 99 MMOL/L (99-107); CREATININE 0.77 MG/DL (0.60-1.10); GLUCOSE 86 MG/DL (70-104); SODIUM 135 MMOL/L (135-145); TOTAL CARBON DIOXIDE 28.6 MMOL/L (24-32); TOTAL PROTEIN 6.2 G/DL (6.4-8.2); eGFR > 90 ML/MIN
[2018-06-03 00:18] LABS: POTASSIUM 2.7 MMOL/L (3.5-5.1)
[2018-06-03 00:37] LABS: MAGNESIUM 1.8 MG/DL (1.5-2.4); PHOSPHORUS 3.4 MG/DL (2.3-4.5)
[2018-06-03] MEDS: LORazepam 2 mg/ml vial IV PRN ×5 (00:38→20:23)
[2018-06-03] MEDS: lactulose 20gm/30ml cup PO SCH ×2 (00:38→08:46)
[2018-06-03] MEDS: potassium Cl 40MEQ/NS 500ml 500 ML IV PRN ×2 (00:39→03:02)
[2018-06-03 06:07] LABS: BASOPHILS % (AUTO) 0.3 % (0-1); EOSINOPHILS # (AUTO) 0.1 X10'3 (0-0.9); EOSINOPHILS % (AUTO) 0.9 % (0-6); HEMATOCRIT 35.2 % (42.0-52.0); HEMOGLOBIN 12.1 g/dl (14.0-17.9); LYMPHOCYTES # (AUTO) 1.1 X10'3 (1.1-4.8); LYMPHOCYTES % (AUTO) 14.1 % (21-51); MEAN CORPUSCULAR HEMOGLOBIN 32.5 PG (27.0-31.0); MEAN CORPUSCULAR HGB CONC 34.3 % (33.0-36.5); MEAN CORPUSCULAR VOLUME 94.8 FL (78-98); MEAN PLATELET VOLUME 6.9 FL (7.4-10.4); MONOCYTES # (AUTO) 0.8 X10'3 (0-0.9); MONOCYTES % (AUTO) 9.9 % (2-12); NEUTROPHILS # (AUTO) 5.7 X10'3 (1.8-7.7); NEUTROPHILS % (AUTO) 74.8 % (42-75); PLATELET COUNT 147 X10'3 (140-440); RED BLOOD COUNT 3.71 X10'6 (4.70-6.10); RED CELL DISTRIBUTION WIDTH 13.4 % (11.5-14.5); WHITE BLOOD COUNT 7.6 X10'3 (4.5-11.0)
[2018-06-03 06:14] LABS: INR 1.1 INR; PARTIAL THROMBOPLASTIN TIME 29 SECONDS (22-32); PROTHROMBIN TIME 11.5 SECONDS (9.0-12.0)
[2018-06-03 06:24] LABS: ALANINE AMINOTRANSFERASE 39 U/L (12-78); ALBUMIN 2.6 G/DL (3.4-5.0); ALBUMIN/GLOBULIN RATIO 0.8 (1.1-1.5); ALKALINE PHOSPHATASE 73 IU/L (46-116); ANION GAP 8 (8-16); ASPARTATE AMINO TRANSFERASE 46 U/L (10-37); BILIRUBIN,TOTAL 0.6 MG/DL (0.1-1.0); BLOOD UREA NITROGEN 7 MG/DL (7-18); BUN/CREATININE RATIO 8.8 (5.4-32.0); CALCIUM 6.8 MG/DL (8.5-10.1); CHLORIDE 104 MMOL/L (99-107); GLUCOSE 90 MG/DL (70-104); MAGNESIUM 1.3 MG/DL (1.5-2.4); PHOSPHORUS 3.5 MG/DL (2.3-4.5); POTASSIUM 3.8 MMOL/L (3.5-5.1); SODIUM 138 MMOL/L (135-145); TOTAL CARBON DIOXIDE 25.8 MMOL/L (24-32); TOTAL PROTEIN 5.9 G/DL (6.4-8.2); eGFR > 90 ML/MIN
[2018-06-03] MEDS ORDERED: furosemide 10 MG/1 ML 10ml inj IV SCH (08:00)
[2018-06-03] MEDS: carVEDilol 3.125mg tablet PO SCH ×2 (08:00→20:00)
[2018-06-03] MEDS: lisinopril 2.5mg tablet PO SCH (08:00)
[2018-06-03] MEDS ORDERED: folic acid inj. 2 MG, thiamine inj. 100 MG, MVI, adult No.4 with vit. K 10 ML in dextro... IV SCH ×4 (08:00)
[2018-06-03] MEDS: K, MAG and/or Phos replacement - Verify level? MC SCH (08:00)
[2018-06-03] MEDS: docusate sod 100mg capsule PO SCH ×2 (08:44→20:00)
[2018-06-03] MEDS: lactobacillus rhamnosus 10,000 MMU CELLS/CAPSULE PO SCH ×2 (08:44→20:23)
[2018-06-03] MEDS: aspirin 81mg tablet.DR PO SCH (08:45)
[2018-06-03] MEDS: citalopram 20mg tablet PO SCH (08:45)
[2018-06-03] MEDS: enoxaparin 40mg/0.4ml syringe SUBCUT SCH (08:46)
[2018-06-03] MEDS: CefTRIAXone 2gm/D5W 50ml 50 ML IV SCH (08:46)
[2018-06-03] MEDS: nicotine 14mg patch - 24hr TD SCH (08:47)
[2018-06-03] MEDS: pantoprazole 40mg Tablet.DR PO SCH (08:50)
[2018-06-03] MEDS ORDERED: magnesium Cl slow-release 64mg tablet PO PRN (09:30)
[2018-06-03] MEDS ORDERED: potassium Cl 20 mEq SR tablet PO PRN ×2 (09:30)
[2018-06-03] MEDS ORDERED: thiamine 100mg tablet PO SCH (11:00)
[2018-06-03] MEDS: furosemide 40mg tablet PO SCH (11:10)
[2018-06-03] MEDS: chlordiazePOXIDE 25mg capsule PO SCH ×2 (13:16→23:30)
[2018-06-03] MEDS: potassium Cl 20 mEq SR tablet PO SCH (13:17)
[2018-06-03 18:52] LABS: HEMOGLOBIN A1C 4.9 % (4.5-6.2)
[2018-06-03] MEDS ORDERED: mirtazapine 15mg tablet PO SCH (21:00)
[2018-06-03] MEDS ORDERED: insulin glargine (Lantus) pen - multi-dose SQ SCH (21:00)
[2018-06-04] VITALS (9 sets, daily range): BP systolic 96–128; BP diastolic 60–93
[2018-06-04 04:33] LABS: BASOPHILS % (AUTO) 0.2 % (0-1); EOSINOPHILS # (AUTO) 0.1 X10'3 (0-0.9); EOSINOPHILS % (AUTO) 1.2 % (0-6); HEMATOCRIT 38.9 % (42.0-52.0); HEMOGLOBIN 13.2 g/dl (14.0-17.9); LYMPHOCYTES # (AUTO) 1.6 X10'3 (1.1-4.8); LYMPHOCYTES % (AUTO) 16.2 % (21-51); MEAN CORPUSCULAR HEMOGLOBIN 32.5 PG (27.0-31.0); MEAN CORPUSCULAR HGB CONC 33.8 % (33.0-36.5); MEAN CORPUSCULAR VOLUME 95.9 FL (78-98); MEAN PLATELET VOLUME 6.7 FL (7.4-10.4); MONOCYTES # (AUTO) 0.8 X10'3 (0-0.9); MONOCYTES % (AUTO) 8.8 % (2-12); NEUTROPHILS # (AUTO) 7.1 X10'3 (1.8-7.7); NEUTROPHILS % (AUTO) 73.6 % (42-75); PLATELET COUNT 173 X10'3 (140-440); RED BLOOD COUNT 4.05 X10'6 (4.70-6.10); WHITE BLOOD COUNT 9.7 X10'3 (4.5-11.0)
[2018-06-04 04:44] LABS: INR 1.1 INR; PROTHROMBIN TIME 11.3 SECONDS (9.0-12.0)
[2018-06-04 04:50] LABS: ALANINE AMINOTRANSFERASE 31 U/L (12-78); ALBUMIN 2.9 G/DL (3.4-5.0); ALBUMIN/GLOBULIN RATIO 0.8 (1.1-1.5); ALKALINE PHOSPHATASE 82 IU/L (46-116); ANION GAP 10 (8-16); ASPARTATE AMINO TRANSFERASE 39 U/L (10-37); BILIRUBIN,TOTAL 0.5 MG/DL (0.1-1.0); BLOOD UREA NITROGEN 5 MG/DL (7-18); CALCIUM 8.1 MG/DL (8.5-10.1); CHLORIDE 103 MMOL/L (99-107); CREATININE 0.83 MG/DL (0.60-1.10); GLUCOSE 78 MG/DL (70-104); MAGNESIUM 1.1 MG/DL (1.5-2.4); PHOSPHORUS 4.1 MG/DL (2.3-4.5); POTASSIUM 3.4 MMOL/L (3.5-5.1); SODIUM 143 MMOL/L (135-145); TOTAL CARBON DIOXIDE 29.8 MMOL/L (24-32); TOTAL PROTEIN 6.7 G/DL (6.4-8.2); eGFR > 90 ML/MIN
[2018-06-04] MEDS: LORazepam 2 mg/ml vial IV PRN (06:30)
[2018-06-04] MEDS: chlordiazePOXIDE 25mg capsule PO SCH ×2 (07:49→08:00)
[2018-06-04] MEDS: CefTRIAXone 2gm/D5W 50ml 50 ML IV SCH (07:49)
[2018-06-04] MEDS: docusate sod 100mg capsule PO SCH (07:49)
[2018-06-04] MEDS: enoxaparin 40mg/0.4ml syringe SUBCUT SCH (07:49)
[2018-06-04] MEDS: lisinopril 2.5mg tablet PO SCH (07:50)
[2018-06-04] MEDS: furosemide 40mg tablet PO SCH (07:50)
[2018-06-04] MEDS: pantoprazole 40mg Tablet.DR PO SCH (07:50)
[2018-06-04] MEDS: aspirin 81mg tablet.DR PO SCH (07:50)
[2018-06-04] MEDS: carVEDilol 3.125mg tablet PO SCH (07:50)
[2018-06-04] MEDS: potassium Cl 20 mEq SR tablet PO SCH (07:50)
[2018-06-04] MEDS: lactobacillus rhamnosus 10,000 MMU CELLS/CAPSULE PO SCH (07:50)
[2018-06-04] MEDS: citalopram 20mg tablet PO SCH (07:59)
[2018-06-04] MEDS ORDERED: folic acid 1mg tablet PO SCH (08:00)
[2018-06-04] MEDS: nicotine 14mg patch - 24hr TD SCH (08:00)
[2018-06-04] MEDS ORDERED: thiamine 100mg tablet PO SCH (08:00)
[2018-06-04] MEDS ORDERED: multivitamins, therapeutics tablet PO SCH (08:00)
[2018-06-04] MEDS: K, MAG and/or Phos replacement - Verify level? MC SCH (08:00)
[2018-06-04] MEDS ORDERED: LORazepam 2 mg/ml vial IV ONE (10:30)
[2018-06-04] MEDS ORDERED: LORazepam 2 mg/ml vial IV PRN (21:50)
[2018-06-04] MEDS ORDERED: LORazepam 1 MG tablet PO PRN (21:50)
[2018-06-06] MEDS ORDERED: FURO40TA4 PO (12:20)
[2018-06-06] MEDS ORDERED: OMEP20TA23 PO (12:20)
[2018-06-06] MEDS ORDERED: DOCU100C33 PO (12:20)
[2018-06-06] MEDS ORDERED: ATRIN INH (12:20)
[2018-06-06] MEDS ORDERED: ALBU18HF2 INH (12:20)
[2018-06-06] MEDS ORDERED: ARIP5TAB4 PO (12:20)
[2018-06-06] MEDS ORDERED: ESCI5TAB PO (12:20)
[2018-06-06] MEDS ORDERED: HYDR-3686 PO (12:20)
[2018-06-06] MEDS ORDERED: LORazepam 1 MG tablet PO PRN (21:50)
[2018-06-06] MEDS ORDERED: LORazepam 2 mg/ml vial IV PRN (21:50)
== END 2018-06-04 14:45 | disposition left against medical advice (07) | DRG 133 ==
LOC: ER 18:37 → CANBEDREQ 19:00 → ED HOLD 21:46 → ICU 2S 22:45
PROVIDERS: ADMIT Internal Medicine Critical Care Medicine; ATTEND Hospitalist
PROC: 5A09357 Assistance with Respiratory Ventilation, Less than 24 Consecutive Hours, Continuous Positive Airway Pressure (ICD-10-PCS; principal; 2018-06-02)
PROC: 5A09357 Assistance with Respiratory Ventilation, Less than 24 Consecutive Hours, Continuous Positive Airway Pressure (ICD-10-PCS; 2018-06-03)
DX: J96.01 Acute respiratory failure with hypoxia (principal); I50.23 Acute on chronic systolic (congestive) heart failure; G93.40 Encephalopathy, unspecified; F10.231 Alcohol dependence with withdrawal delirium; E72.20 Disorder of urea cycle metabolism, unspecified; E87.2 Acidosis; F32.9 Major depressive disorder, single episode, unspecified; I42.9 Cardiomyopathy, unspecified; Z86.74 Personal history of sudden cardiac arrest; Z87.891 Personal history of nicotine dependence; Y90.9 Presence of alcohol in blood, level not specified
CPT/HCPCS: 36415; 36600; 70450; 71045; 80053; 80305; 80320; 81003; 82140; 82803; 82948; 83036; 83605; 83735; 83880; 84100; 84145; 85018; 85025; 85610; 85730; 87040; 87070; 93005; 94640; 94660; 94760; 96365; 96367; 96375; 97116; 97162; 97530; 99291; 99292; A6213; C1758; J0696; J1630; J1650; J1815; J1940; J2060; J3411; J3475; J3480; J3490; J7030; J7060; J7120

== ENCOUNTER 2018-07-07 01:35 | Inpatient (IN) | payer MEDICAID ==
[2018-07-07] VITALS (21 sets, daily range): BP systolic 82–133; BP diastolic 59–87
[~2018-07-07] VITALS: Ht 180.3 cm; Wt 145.0 kg
[~2018-07-07 01:35] MED LIST changes: +ALBU18HF2 INH; -ARIP2TAB37 PO; +ARIP5TAB4 PO; +ASPI-1130 PO; +ATI1T PO; +ATRIN INH; +CARV3.123 PO; +DOCU100C33 PO; -ESCI20TA38 PO; +ESCI5TAB PO; +FURO40TA4 PO; +HYDR-3686 PO; -HYDROXYZINE HCL; +LISI2.5T2 PO; -MIRT15TA PO; +POTA20TA19 PO; +PRED20TA PO
[2018-07-07] MEDS: LORazepam 2 mg/ml vial ONE ×2 (01:42→01:59)
[2018-07-07] MEDS: LORazepam 2 mg/ml vial IV STA ×2 (01:47→01:59)
[2018-07-07] MEDS ORDERED: CefTRIAXone 2gm/D5W 50ml 50 ML IV ONE (01:55)
[2018-07-07] MEDS ORDERED: normal saline 1000ML IV soln IV ONE (01:55)
[2018-07-07] MEDS ORDERED: NALT50TA PO (01:55)
[2018-07-07] MEDS ORDERED: azithromycin 250mg tablet PO ONE (01:55)
[2018-07-07] MEDS ORDERED: levoFLOXACIN-Levaquin 750MG/D5 150 ML IV ONE (01:55)
[2018-07-07 02:15] LABS: ABG BASE EXCESS -4.8 mmol/L (-2.0-3.0); ABG HCO3 18.3 mmol/L (22.0-26.0); ABG OXYGEN SATURATION 76.1 % (95-98); ABG PCO2 (T) 30.2 mmHg (35.0-48.0); ABG PH (T) 7.404 (7.350-7.450); ABG PO2 (T) 47.1 mmHg (83-108); FCOHb 0.6 % (0.5-1.5); FLOW 15 L/min; FMetHb 0.3 % (0.3-1.12); FO2Hb 75.4 % (94-100); PATIENT TEMPERATURE 37.9; TOTAL HEMOGLOBIN 14.5 G/dl (14.0-18.0)
[2018-07-07 02:21] LABS: BASOPHILS # (AUTO) 0.1 X10'3 (0-0.2); BASOPHILS % (AUTO) 0.3 % (0-1); EOSINOPHILS # (AUTO) 0.3 X10'3 (0-0.9); EOSINOPHILS % (AUTO) 1.1 % (0-6); HEMATOCRIT 42.3 % (42.0-52.0); HEMOGLOBIN 14.5 g/dl (14.0-17.9); LYMPHOCYTES # (AUTO) 2.1 X10'3 (1.1-4.8); LYMPHOCYTES % (AUTO) 9.5 % (21-51); MEAN CORPUSCULAR HEMOGLOBIN 31.6 PG (27.0-31.0); MEAN CORPUSCULAR HGB CONC 34.2 % (33.0-36.5); MEAN CORPUSCULAR VOLUME 92.5 FL (78-98); MEAN PLATELET VOLUME 7.8 FL (7.4-10.4); MONOCYTES % (AUTO) 4.6 % (2-12); NEUTROPHILS # (AUTO) 18.8 X10'3 (1.8-7.7); NEUTROPHILS % (AUTO) 84.5 % (42-75); PLATELET COUNT 306 X10'3 (140-440); RED BLOOD COUNT 4.57 X10'6 (4.70-6.10); WHITE BLOOD COUNT 22.2 X10'3 (4.5-11.0)
[2018-07-07] MEDS ORDERED: ondansetron/PF 4mg/2ml inj IV ONE (02:30)
[2018-07-07 02:34] LABS: D-DIMER 1.88 MG/L FEU (0-0.50)
[2018-07-07 02:37] LABS: ALANINE AMINOTRANSFERASE 32 U/L (12-78); ALBUMIN 3.3 G/DL (3.4-5.0); ALBUMIN/GLOBULIN RATIO 0.9 (1.1-1.5); ALKALINE PHOSPHATASE 121 IU/L (46-116); ANION GAP 19 (8-16); ASPARTATE AMINO TRANSFERASE 63 U/L (10-37); BILIRUBIN,TOTAL 0.6 MG/DL (0.1-1.0); BLOOD UREA NITROGEN 9 MG/DL (7-18); BUN/CREATININE RATIO 6.9 (5.4-32.0); CHLORIDE 97 MMOL/L (99-107); GLUCOSE 172 MG/DL (70-104); POTASSIUM 4.1 MMOL/L (3.5-5.1); SODIUM 135 MMOL/L (135-145); TOTAL CARBON DIOXIDE 19.4 MMOL/L (24-32); TOTAL PROTEIN 7.1 G/DL (6.4-8.2); eGFR 61 ML/MIN
[2018-07-07 02:45] LABS: MAGNESIUM 0.7 MG/DL (1.5-2.4)
[2018-07-07] MEDS ORDERED: LORazepam 2 mg/ml vial IV ONE (02:45)
[2018-07-07] MEDS ORDERED: iohexol 350MG/ML 100ml bottle IV ONE ×2 (02:55→03:19)
[2018-07-07 03:11] LABS: TOTAL CELLS COUNTED 100
[2018-07-07 03:12] LABS: PLATELET ESTIMATE NORMAL
[2018-07-07] MEDS ORDERED: acetaminophen 325mg tablet PO ONE (03:40)
[2018-07-07] MEDS ORDERED: etomidate 2mg/ml inj. IV STA (03:55)
[2018-07-07] MEDS ORDERED: rocuronium 10mg/ml inj IV STA (03:55)
[2018-07-07] MEDS ORDERED: vancomycin/NS 1 GM ADD-VANTAGE 250 ML IV ONE (04:15)
[2018-07-07] MEDS: K, MAG and/or Phos replacement - Verify level? MC SCH ×2 (04:15→07:19)
[2018-07-07] MEDS ORDERED: acetaminophen 325mg tablet PO PRN ×2 (04:15)
[2018-07-07] MEDS ORDERED: morphine 2 MG/ML inj. syringe IV PRN (04:15)
[2018-07-07] MEDS ORDERED: morphine 4 MG/ML inj SYRINge IV PRN (04:15)
[2018-07-07] MEDS ORDERED: potassium Cl 20 mEq SR tablet PO PRN ×2 (04:15)
[2018-07-07] MEDS ORDERED: magnesium hydroxide 30ml (MOM) UD suspension PO PRN (04:15)
[2018-07-07] MEDS ORDERED: MIDAZolam 5mg/ml 2ml vial IV ONE (04:20)
[2018-07-07] MEDS ORDERED: propofol 1000mg/100ml bottle 100 ML IV ONE (04:20)
[2018-07-07 04:21] LABS: ABG HCO3 23.6 mmol/L (22.0-26.0); ABG OXYGEN SATURATION 90.5 % (95-98); ABG PCO2 (T) 71.7 mmHg (35.0-48.0); ABG PH (T) 7.147 (7.350-7.450); ABG PO2 (T) 91.6 mmHg (83-108); FCOHb 0.5 % (0.5-1.5); FMetHb 0.2 % (0.3-1.12); FO2Hb 89.9 % (94-100); PEEP 10 cm H2O; RESPIRATORY RATE 18 b/min; RESPIRATORY RATE (OBSERVED) 18 b/min; TIDAL VOLUME 450 mL; TOTAL HEMOGLOBIN 13.6 G/dl (14.0-18.0)
[2018-07-07 05:02] LABS: ETHANOL < 0.010 GM/DL (0.0-0.010)
[2018-07-07 05:03] LABS: INR 1.1 INR; PARTIAL THROMBOPLASTIN TIME 25 SECONDS (22-32); PROTHROMBIN TIME 11.1 SECONDS (9.0-12.0)
[2018-07-07 05:07] LABS: URINE AMPHETAMINE SCREEN NEGATIVE (Neg); URINE BARBITUATE SCREEN NEGATIVE (Neg); URINE BENZODIAZEPINES SCREEN NEGATIVE (Neg); URINE CANNABINOID SCREEN POSITIVE (Neg); URINE COCAINE SCREEN NEGATIVE (Neg); URINE METHADONE SCREEN NEGATIVE (Neg); URINE OPIATE SCREEN NEGATIVE (Neg); URINE PHENCYCLIDINE SCREEN NEGATIVE (Neg)
[2018-07-07] MEDS ORDERED: thiamine 100mg/ml 2ml inj. IV ONE ×2 (05:35→06:40)
[2018-07-07 05:56] LABS: ABG BASE EXCESS -9.7 mmol/L (-2.0-3.0); ABG HCO3 17.8 mmol/L (22.0-26.0); ABG OXYGEN SATURATION 93.7 % (95-98); ABG PH (T) 7.215 (7.350-7.450); ABG PO2 (T) 84.9 mmHg (83-108); ALLEN'S TEST Positive; FCOHb 0.4 % (0.5-1.5); FMetHb 0.2 % (0.3-1.12); FO2Hb 93.1 % (94-100); MINUTE VOLUME 13 L/min; PATIENT TEMPERATURE 37.2; PEEP 10 cm H2O; RESPIRATORY RATE 24 b/min; RESPIRATORY RATE (OBSERVED) 24 b/min; TIDAL VOLUME 525 mL; TOTAL HEMOGLOBIN 13.9 G/dl (14.0-18.0)
[2018-07-07] MEDS: magnesium 1gm/100ml D5W IVPB 100 ML IV SCH ×4 (05:58→08:29)
[2018-07-07] MEDS: normal saline 1000ml 1,000 ML IV SCH ×4 (05:58→17:33)
[2018-07-07] MEDS: enoxaparin 40mg/0.4ml syringe SUBCUT SCH (07:18)
[2018-07-07] MEDS: piperacillin/tazo 3.375gm/50ml 50 ML IV SCH ×3 (07:19→21:12)
[2018-07-07 09:46] LABS: OXYGEN SATURATION (MIXED VEN) 65.8 % (60-80)
[2018-07-07 11:50] LABS: PREALBUMIN 15.2 MG/DL (19-36)
[2018-07-07] MEDS ORDERED: etomidate 2mg/ml inj. ONE (12:30)
[2018-07-07] MEDS ORDERED: rocuronium 10mg/ml inj IV ONE (12:30)
[2018-07-07] MEDS ORDERED: sod chloride 0.9% 10ml flush syringe IV ONE (12:30)
[2018-07-07] MEDS: propofol 1000mg/100ml bottle 100 ML IV PRN (13:47)
[2018-07-07] MEDS: albumin (human) 25% 100 ML IV solution IV SCH ×2 (14:29→21:13)
[2018-07-07] MEDS ORDERED: vancomycin/NS 1 GM ADD-VANTAGE 250 ML IV SCH (18:00)
[2018-07-07] MEDS: vancomycin/NS 1 GM ADD-VANTAGE 250 ML IV SCH (19:32)
[2018-07-07 21:53] LABS: MAGNESIUM 1.9 MG/DL (1.5-2.4); TROPONIN I 0.14 NG/ML (0.0-0.05)
[2018-07-07 22:08] LABS: HIV ANTIBODY 1&2 RAPID NON-REACTIVE (Neg)
[2018-07-08] VITALS (24 sets, daily range): BP systolic 79–102; BP diastolic 51–68
[2018-07-08] MEDS: normal saline 1000ml 1,000 ML IV SCH ×4 (00:13→12:14)
[2018-07-08] MEDS: propofol 1000mg/100ml bottle 100 ML IV PRN ×5 (00:23→20:45)
[2018-07-08] MEDS: piperacillin/tazo 3.375gm/50ml 50 ML IV SCH ×4 (02:18→19:49)
[2018-07-08] MEDS: albumin (human) 25% 100 ML IV solution IV SCH ×2 (02:19→07:12)
[2018-07-08 03:07] LABS: BASOPHILS % (AUTO) 0.2 % (0-1); EOSINOPHILS # (AUTO) 0.2 X10'3 (0-0.9); EOSINOPHILS % (AUTO) 3.5 % (0-6); HEMATOCRIT 30.1 % (42.0-52.0); HEMOGLOBIN 10.2 g/dl (14.0-17.9); LYMPHOCYTES # (AUTO) 0.7 X10'3 (1.1-4.8); LYMPHOCYTES % (AUTO) 11.7 % (21-51); MEAN CORPUSCULAR HEMOGLOBIN 31.4 PG (27.0-31.0); MEAN CORPUSCULAR HGB CONC 33.9 % (33.0-36.5); MEAN CORPUSCULAR VOLUME 92.7 FL (78-98); MEAN PLATELET VOLUME 7.6 FL (7.4-10.4); MONOCYTES # (AUTO) 0.7 X10'3 (0-0.9); NEUTROPHILS # (AUTO) 4.4 X10'3 (1.8-7.7); NEUTROPHILS % (AUTO) 73.6 % (42-75); RED BLOOD COUNT 3.24 X10'6 (4.70-6.10); RED CELL DISTRIBUTION WIDTH 13.2 % (11.5-14.5)
[2018-07-08 03:18] LABS: ALANINE AMINOTRANSFERASE 28 U/L (12-78); ALBUMIN 2.7 G/DL (3.4-5.0); ALBUMIN/GLOBULIN RATIO 1.1 (1.1-1.5); ALKALINE PHOSPHATASE 68 IU/L (46-116); ANION GAP 8 (8-16); ASPARTATE AMINO TRANSFERASE 33 U/L (10-37); BILIRUBIN,TOTAL 0.7 MG/DL (0.1-1.0); BLOOD UREA NITROGEN 4 MG/DL (7-18); BUN/CREATININE RATIO 6.2 (5.4-32.0); CALCIUM 8.3 MG/DL (8.5-10.1); CHLORIDE 108 MMOL/L (99-107); CREATININE 0.65 MG/DL (0.60-1.10); GLUCOSE 104 MG/DL (70-104); MAGNESIUM 1.8 MG/DL (1.5-2.4); PHOSPHORUS 3.6 MG/DL (2.3-4.5); SODIUM 142 MMOL/L (135-145); TOTAL CARBON DIOXIDE 26.4 MMOL/L (24-32); TOTAL PROTEIN 5.1 G/DL (6.4-8.2); eGFR > 90 ML/MIN
[2018-07-08 03:26] LABS: PLATELET COUNT 238 X10'3 (140-440)
[2018-07-08 03:40] LABS: ABG BASE EXCESS -0.3 mmol/L (-2.0-3.0); ABG HCO3 25.4 mmol/L (22.0-26.0); ABG OXYGEN SATURATION 93.9 % (95-98); ABG PCO2 (T) 45.5 mmHg (35.0-48.0); ABG PH (T) 7.363 (7.350-7.450); ABG PO2 (T) 71.9 mmHg (83-108); ALLEN'S TEST Positive; FCOHb 0.3 % (0.5-1.5); FMetHb 0.1 % (0.3-1.12); FO2Hb 93.5 % (94-100); MINUTE VOLUME 10 L/min; PATIENT TEMPERATURE 36.6; PEEP 10 cm H2O; RESPIRATORY RATE (OBSERVED) 20 b/min; TIDAL VOLUME 508 mL; TOTAL HEMOGLOBIN 10.6 G/dl (14.0-18.0)
[2018-07-08] MEDS: potassium Cl 40MEQ/250ML bag 250 ML IV PRN ×4 (04:07→22:13)
[2018-07-08] MEDS: vancomycin/NS 1 GM ADD-VANTAGE 250 ML IV SCH ×3 (07:10→23:11)
[2018-07-08] MEDS: enoxaparin 40mg/0.4ml syringe SUBCUT SCH (07:12)
[2018-07-08] MEDS: K, MAG and/or Phos replacement - Verify level? MC SCH (08:00)
[2018-07-08] MEDS: mineral oil/petrolatum ophthal oint EACHEYE SCH ×3 (08:00→20:00)
[2018-07-08] MEDS ORDERED: ipratropium 0.5 MG/2.5ML nebule NEB PRN (10:50)
[2018-07-08] MEDS: carVEDilol 3.125mg tablet PO SCH ×2 (11:02→19:59)
[2018-07-08] MEDS: potassium Cl 20 mEq SR tablet PO SCH (11:12)
[2018-07-08] MEDS: furosemide 40mg tablet PO SCH (11:22)
[2018-07-08] MEDS: aripiprazole 5mg tablet PO SCH (11:22)
[2018-07-08] MEDS: aspirin 81mg tablet.DR PO SCH (11:22)
[2018-07-08] MEDS: citalopram 20mg tablet PO SCH (11:22)
[2018-07-08] MEDS ORDERED: albuterol 2.5 MG/3 ML nebule NEB PRN (11:45)
[2018-07-08] MEDS: naltrexone 50mg tablet PO SCH (12:15)
[2018-07-08] MEDS: hydrOXYzine 25 MG tablet PO SCH ×2 (15:37→21:10)
[2018-07-08] MEDS: docusate sod 100mg capsule PO SCH (19:59)
[2018-07-09] VITALS (24 sets, daily range): BP systolic 80–124; BP diastolic 53–88
[2018-07-09] MEDS: propofol 1000mg/100ml bottle 100 ML IV PRN ×6 (01:12→18:31)
[2018-07-09] MEDS: piperacillin/tazo 3.375gm/50ml 50 ML IV SCH ×4 (01:48→20:23)
[2018-07-09] MEDS: mineral oil/petrolatum ophthal oint EACHEYE SCH ×4 (01:48→20:23)
[2018-07-09 02:50] LABS: BASOPHILS % (AUTO) 0.4 % (0-1); EOSINOPHILS # (AUTO) 0.3 X10'3 (0-0.9); EOSINOPHILS % (AUTO) 4.9 % (0-6); HEMATOCRIT 30.1 % (42.0-52.0); HEMOGLOBIN 10.2 g/dl (14.0-17.9); LYMPHOCYTES # (AUTO) 1.2 X10'3 (1.1-4.8); LYMPHOCYTES % (AUTO) 19.4 % (21-51); MEAN CORPUSCULAR HEMOGLOBIN 31.4 PG (27.0-31.0); MEAN CORPUSCULAR HGB CONC 33.8 % (33.0-36.5); MEAN CORPUSCULAR VOLUME 92.9 FL (78-98); MEAN PLATELET VOLUME 7.8 FL (7.4-10.4); MONOCYTES # (AUTO) 0.7 X10'3 (0-0.9); MONOCYTES % (AUTO) 11.1 % (2-12); NEUTROPHILS % (AUTO) 64.2 % (42-75); PLATELET COUNT 146 X10'3 (140-440); RED BLOOD COUNT 3.24 X10'6 (4.70-6.10); RED CELL DISTRIBUTION WIDTH 13.2 % (11.5-14.5); WHITE BLOOD COUNT 6.2 X10'3 (4.5-11.0)
[2018-07-09 03:07] LABS: ALANINE AMINOTRANSFERASE 22 U/L (12-78); ALBUMIN 2.7 G/DL (3.4-5.0); ALBUMIN/GLOBULIN RATIO 1.1 (1.1-1.5); ALKALINE PHOSPHATASE 57 IU/L (46-116); ANION GAP 7 (8-16); ASPARTATE AMINO TRANSFERASE 16 U/L (10-37); BILIRUBIN,TOTAL 0.6 MG/DL (0.1-1.0); BLOOD UREA NITROGEN 3 MG/DL (7-18); BUN/CREATININE RATIO 4.5 (5.4-32.0); CALCIUM 8.1 MG/DL (8.5-10.1); CHLORIDE 110 MMOL/L (99-107); CREATININE 0.66 MG/DL (0.60-1.10); GLUCOSE 107 MG/DL (70-104); MAGNESIUM 1.4 MG/DL (1.5-2.4); PHOSPHORUS 3.7 MG/DL (2.3-4.5); POTASSIUM 3.4 MMOL/L (3.5-5.1); SODIUM 145 MMOL/L (135-145); TOTAL CARBON DIOXIDE 27.8 MMOL/L (24-32); TOTAL PROTEIN 5.2 G/DL (6.4-8.2); eGFR > 90 ML/MIN
[2018-07-09 03:26] LABS: ABG BASE EXCESS -0.8 mmol/L (-2.0-3.0); ABG OXYGEN SATURATION 93.6 % (95-98); ABG PCO2 (T) 38.9 mmHg (35.0-48.0); ABG PH (T) 7.404 (7.350-7.450); ABG PO2 (T) 67.7 mmHg (83-108); ALLEN'S TEST Positive; FMetHb 0.2 % (0.3-1.12); FO2Hb 93.4 % (94-100); MINUTE VOLUME 10 L/min; PATIENT TEMPERATURE 36.1; PEEP 8 cm H2O; RESPIRATORY RATE (OBSERVED) 21 b/min; TOTAL HEMOGLOBIN 11.1 G/dl (14.0-18.0)
[2018-07-09] MEDS ORDERED: magnesium 1gm/100ml D5W IVPB 100 ML IV PRN (04:40)
[2018-07-09] MEDS: potassium Cl 40MEQ/250ML bag 250 ML IV SCH (04:47)
[2018-07-09] MEDS: normal saline 1000ml 1,000 ML IV SCH (04:48)
[2018-07-09] MEDS ORDERED: albumin (human) 25% 100 ML IV solution IV ONE (06:45)
[2018-07-09] MEDS ORDERED: furosemide 40mg/4ml inj IV ONE (06:45)
[2018-07-09] MEDS: vancomycin/NS 1 GM ADD-VANTAGE 250 ML IV SCH (07:27)
[2018-07-09] MEDS: pantoprazole 40mg Tablet.DR PO SCH (07:58)
[2018-07-09] MEDS: enoxaparin 40mg/0.4ml syringe SUBCUT SCH (07:58)
[2018-07-09] MEDS: hydrOXYzine 25 MG tablet PO SCH ×3 (07:58→20:23)
[2018-07-09] MEDS: aripiprazole 5mg tablet PO SCH (07:58)
[2018-07-09] MEDS: citalopram 20mg tablet PO SCH (07:58)
[2018-07-09] MEDS: aspirin 81mg tablet.DR PO SCH (07:58)
[2018-07-09] MEDS: carVEDilol 3.125mg tablet PO SCH ×2 (07:59→20:23)
[2018-07-09] MEDS: docusate sod 100mg capsule PO SCH ×2 (07:59→20:00)
[2018-07-09] MEDS: K, MAG and/or Phos replacement - Verify level? MC SCH (08:00)
[2018-07-09] MEDS: furosemide 40mg tablet PO SCH (08:00)
[2018-07-09] MEDS: potassium Cl 20 mEq SR tablet PO SCH (08:00)
[2018-07-09] MEDS: naltrexone 50mg tablet PO SCH (08:11)
[2018-07-09] MEDS: magnesium 4gm in 100ml NS 100 ML IV PRN (09:16)
[2018-07-09] MEDS ORDERED: dexmedetomidin/NS 400mcg/100ml 100 ML IV SCH (13:20)
[2018-07-09] MEDS: dexmedetomidin/NS 400mcg/100ml 100 ML IV SCH ×2 (14:16→21:25)
[2018-07-09] MEDS ORDERED: VANCOMYCIN LEVEL IV ONE (14:30)
[2018-07-09 14:53] LABS: MAGNESIUM 1.9 MG/DL (1.5-2.4); VANCOMYCIN,TROUGH 13.3 UG/ML (6.0-14.0)
[2018-07-09] MEDS: potassium Cl 40MEQ/250ML bag 250 ML IV PRN ×2 (15:56→18:32)
[2018-07-09 19:42] LABS: HBSAG SCREEN Negative (Negative); HEPATITIS C ANTIBODY <0.1 s/co ratio (0.0-0.9)
[2018-07-10] VITALS (24 sets, daily range): BP systolic 84–123; BP diastolic 64–91
[2018-07-10] MEDS: mineral oil/petrolatum ophthal oint EACHEYE SCH ×4 (02:15→19:59)
[2018-07-10] MEDS: piperacillin/tazo 3.375gm/50ml 50 ML IV SCH ×4 (02:18→19:58)
[2018-07-10 02:41] LABS: BASOPHILS % (AUTO) 0.4 % (0-1); EOSINOPHILS # (AUTO) 0.4 X10'3 (0-0.9); EOSINOPHILS % (AUTO) 4.4 % (0-6); HEMOGLOBIN 11.3 g/dl (14.0-17.9); LYMPHOCYTES # (AUTO) 1.4 X10'3 (1.1-4.8); LYMPHOCYTES % (AUTO) 16.3 % (21-51); MEAN CORPUSCULAR HEMOGLOBIN 31.6 PG (27.0-31.0); MEAN CORPUSCULAR HGB CONC 34.2 % (33.0-36.5); MEAN CORPUSCULAR VOLUME 92.4 FL (78-98); MEAN PLATELET VOLUME 7.7 FL (7.4-10.4); MONOCYTES # (AUTO) 0.8 X10'3 (0-0.9); NEUTROPHILS # (AUTO) 5.7 X10'3 (1.8-7.7); NEUTROPHILS % (AUTO) 68.9 % (42-75); PLATELET COUNT 193 X10'3 (140-440); RED BLOOD COUNT 3.57 X10'6 (4.70-6.10); RED CELL DISTRIBUTION WIDTH 13.4 % (11.5-14.5); WHITE BLOOD COUNT 8.3 X10'3 (4.5-11.0)
[2018-07-10 03:05] LABS: ALANINE AMINOTRANSFERASE 18 U/L (12-78); ALBUMIN 3.1 G/DL (3.4-5.0); ALKALINE PHOSPHATASE 62 IU/L (46-116); ANION GAP 7 (8-16); ASPARTATE AMINO TRANSFERASE 17 U/L (10-37); BILIRUBIN,TOTAL 0.5 MG/DL (0.1-1.0); BLOOD UREA NITROGEN 4 MG/DL (7-18); BUN/CREATININE RATIO 6.2 (5.4-32.0); CHLORIDE 109 MMOL/L (99-107); CREATININE 0.65 MG/DL (0.60-1.10); GLUCOSE 121 MG/DL (70-104); MAGNESIUM 1.5 MG/DL (1.5-2.4); PHOSPHORUS 3.9 MG/DL (2.3-4.5); POTASSIUM 3.4 MMOL/L (3.5-5.1); SODIUM 145 MMOL/L (135-145); TOTAL CARBON DIOXIDE 28.7 MMOL/L (24-32); TOTAL PROTEIN 6.1 G/DL (6.4-8.2); eGFR > 90 ML/MIN
[2018-07-10 03:11] LABS: ABG BASE EXCESS 0.4 mmol/L (-2.0-3.0); ABG HCO3 23.8 mmol/L (22.0-26.0); ABG OXYGEN SATURATION 92.3 % (95-98); ABG PCO2 (T) 34.1 mmHg (35.0-48.0); ABG PH (T) 7.461 (7.350-7.450); ABG PO2 (T) 66.2 mmHg (83-108); ALLEN'S TEST Positive; FCOHb 0.4 % (0.5-1.5); FMetHb 0.2 % (0.3-1.12); FO2Hb 91.7 % (94-100); MINUTE VOLUME 14 L/min; PEEP 5 cm H2O; RESPIRATORY RATE (OBSERVED) 26 b/min; TOTAL HEMOGLOBIN 12.1 G/dl (14.0-18.0)
[2018-07-10] MEDS: propofol 1000mg/100ml bottle 100 ML IV PRN ×6 (03:47→21:39)
[2018-07-10] MEDS: potassium Cl 40MEQ/250ML bag 250 ML IV SCH ×2 (04:36→17:11)
[2018-07-10] MEDS: dexmedetomidin/NS 400mcg/100ml 100 ML IV SCH ×4 (05:16→21:39)
[2018-07-10] MEDS: docusate sod 100mg capsule PO SCH ×2 (08:00→19:59)
[2018-07-10] MEDS: K, MAG and/or Phos replacement - Verify level? MC SCH (08:00)
[2018-07-10] MEDS: enoxaparin 40mg/0.4ml syringe SUBCUT SCH (08:32)
[2018-07-10] MEDS: aripiprazole 5mg tablet PO SCH (08:33)
[2018-07-10] MEDS: carVEDilol 3.125mg tablet PO SCH ×2 (08:33→19:59)
[2018-07-10] MEDS: furosemide 40mg tablet PO SCH (08:33)
[2018-07-10] MEDS: potassium Cl 20 mEq SR tablet PO SCH (08:33)
[2018-07-10] MEDS: citalopram 20mg tablet PO SCH (08:33)
[2018-07-10] MEDS: hydrOXYzine 25 MG tablet PO SCH ×3 (08:33→19:58)
[2018-07-10] MEDS: pantoprazole 40mg Tablet.DR PO SCH (08:33)
[2018-07-10] MEDS: naltrexone 50mg tablet PO SCH (08:33)
[2018-07-10] MEDS: aspirin 81mg tablet.DR PO SCH (08:33)
[2018-07-10 15:47] LABS: MAGNESIUM 1.1 MG/DL (1.5-2.4); POTASSIUM 3.4 MMOL/L (3.5-5.1)
[2018-07-10] MEDS: magnesium 4gm in 100ml NS 100 ML IV PRN (16:33)
[2018-07-10] MEDS ORDERED: magnesium 2GM in 50ml NS 50 ML IV PRN (17:46)
[2018-07-11] VITALS (23 sets, daily range): BP systolic 69–108; BP diastolic 47–79
[2018-07-11] MEDS: mineral oil/petrolatum ophthal oint EACHEYE SCH ×4 (01:28→19:47)
[2018-07-11] MEDS: piperacillin/tazo 3.375gm/50ml 50 ML IV SCH ×4 (01:28→19:47)
[2018-07-11] MEDS: propofol 1000mg/100ml bottle 100 ML IV PRN ×4 (01:42→22:26)
[2018-07-11] MEDS: dexmedetomidin/NS 400mcg/100ml 100 ML IV SCH ×4 (01:42→17:38)
[2018-07-11 02:24] LABS: BASOPHILS % (AUTO) 0.3 % (0-1); EOSINOPHILS # (AUTO) 0.4 X10'3 (0-0.9); HEMATOCRIT 34.9 % (42.0-52.0); LYMPHOCYTES # (AUTO) 1.4 X10'3 (1.1-4.8); LYMPHOCYTES % (AUTO) 17.5 % (21-51); MEAN CORPUSCULAR HEMOGLOBIN 31.5 PG (27.0-31.0); MEAN CORPUSCULAR HGB CONC 34.4 % (33.0-36.5); MEAN CORPUSCULAR VOLUME 91.5 FL (78-98); MEAN PLATELET VOLUME 7.6 FL (7.4-10.4); MONOCYTES # (AUTO) 1.1 X10'3 (0-0.9); MONOCYTES % (AUTO) 12.9 % (2-12); NEUTROPHILS # (AUTO) 5.3 X10'3 (1.8-7.7); NEUTROPHILS % (AUTO) 64.3 % (42-75); PLATELET COUNT 217 X10'3 (140-440); RED BLOOD COUNT 3.82 X10'6 (4.70-6.10); RED CELL DISTRIBUTION WIDTH 12.9 % (11.5-14.5); WHITE BLOOD COUNT 8.2 X10'3 (4.5-11.0)
[2018-07-11 02:38] LABS: ALANINE AMINOTRANSFERASE 22 U/L (12-78); ALBUMIN/GLOBULIN RATIO 0.9 (1.1-1.5); ALKALINE PHOSPHATASE 64 IU/L (46-116); ANION GAP 8 (8-16); ASPARTATE AMINO TRANSFERASE 18 U/L (10-37); BILIRUBIN,TOTAL 0.4 MG/DL (0.1-1.0); BLOOD UREA NITROGEN 7 MG/DL (7-18); BUN/CREATININE RATIO 11.5 (5.4-32.0); CALCIUM 8.8 MG/DL (8.5-10.1); CHLORIDE 105 MMOL/L (99-107); CREATININE 0.61 MG/DL (0.60-1.10); GLUCOSE 116 MG/DL (70-104); MAGNESIUM 2.1 MG/DL (1.5-2.4); PHOSPHORUS 6.2 MG/DL (2.3-4.5); POTASSIUM 3.6 MMOL/L (3.5-5.1); SODIUM 142 MMOL/L (135-145); TOTAL CARBON DIOXIDE 28.9 MMOL/L (24-32); TOTAL PROTEIN 6.4 G/DL (6.4-8.2); eGFR > 90 ML/MIN
[2018-07-11 03:01] LABS: ABG BASE EXCESS 1.9 mmol/L (-2.0-3.0); ABG HCO3 25.5 mmol/L (22.0-26.0); ABG PCO2 (T) 36.1 mmHg (35.0-48.0); ABG PH (T) 7.466 (7.350-7.450); ABG PO2 (T) 78.1 mmHg (83-108); ALLEN'S TEST Positive; FCOHb 0.5 % (0.5-1.5); FMetHb 0.1 % (0.3-1.12); FO2Hb 94.4 % (94-100); MINUTE VOLUME 11 L/min; PATIENT TEMPERATURE 36.9; PEEP 5 cm H2O; RESPIRATORY RATE (OBSERVED) 22 b/min; TOTAL HEMOGLOBIN 13.2 G/dl (14.0-18.0)
[2018-07-11] MEDS: K, MAG and/or Phos replacement - Verify level? MC SCH (08:00)
[2018-07-11] MEDS: carVEDilol 3.125mg tablet PO SCH ×2 (08:00→19:48)
[2018-07-11] MEDS: docusate sod 100mg capsule PO SCH ×2 (08:00→19:48)
[2018-07-11] MEDS: furosemide 40mg tablet PO SCH (08:00)
[2018-07-11] MEDS: aspirin 81mg tablet.DR PO SCH (08:25)
[2018-07-11] MEDS: naltrexone 50mg tablet PO SCH (08:25)
[2018-07-11] MEDS: aripiprazole 5mg tablet PO SCH (08:26)
[2018-07-11] MEDS: potassium Cl 20 mEq SR tablet PO SCH (08:26)
[2018-07-11] MEDS: pantoprazole 40mg Tablet.DR PO SCH (08:27)
[2018-07-11] MEDS: hydrOXYzine 25 MG tablet PO SCH ×3 (08:27→19:48)
[2018-07-11] MEDS: citalopram 20mg tablet PO SCH (08:28)
[2018-07-11] MEDS: enoxaparin 40mg/0.4ml syringe SUBCUT SCH (08:29)
[2018-07-11] MEDS ORDERED: OLANZapine **IM** 10 mg inj. IM ONE (11:25)
[2018-07-11] MEDS ORDERED: normal saline 1000ml 1,000 ML IV ONE (17:25)
[2018-07-11] MEDS ORDERED: normal saline 500ml IV soln 500 ML IV ONE (17:35)
[2018-07-11] MEDS: sodium chloride 0.45% 1,000 ML IV SCH (17:38)
[2018-07-11] MEDS: NORepinephrine 8mg/ 250ml NS 250 ML IV SCH (20:28)
[2018-07-12] VITALS (24 sets, daily range): BP systolic 83–113; BP diastolic 49–78
[2018-07-12] MEDS: mineral oil/petrolatum ophthal oint EACHEYE SCH ×4 (01:10→19:33)
[2018-07-12] MEDS: piperacillin/tazo 3.375gm/50ml 50 ML IV SCH ×4 (01:10→19:33)
[2018-07-12] MEDS: dexmedetomidin/NS 400mcg/100ml 100 ML IV SCH ×4 (01:16→19:33)
[2018-07-12 02:49] LABS: BASOPHILS % (AUTO) 0.3 % (0-1); EOSINOPHILS # (AUTO) 0.3 X10'3 (0-0.9); EOSINOPHILS % (AUTO) 3.9 % (0-6); HEMATOCRIT 35.3 % (42.0-52.0); HEMOGLOBIN 12.2 g/dl (14.0-17.9); LYMPHOCYTES # (AUTO) 1.6 X10'3 (1.1-4.8); LYMPHOCYTES % (AUTO) 18.7 % (21-51); MEAN CORPUSCULAR HEMOGLOBIN 31.6 PG (27.0-31.0); MEAN CORPUSCULAR HGB CONC 34.6 % (33.0-36.5); MEAN CORPUSCULAR VOLUME 91.3 FL (78-98); MEAN PLATELET VOLUME 7.3 FL (7.4-10.4); MONOCYTES # (AUTO) 1.3 X10'3 (0-0.9); MONOCYTES % (AUTO) 15.1 % (2-12); NEUTROPHILS # (AUTO) 5.2 X10'3 (1.8-7.7); PLATELET COUNT 234 X10'3 (140-440); RED BLOOD COUNT 3.87 X10'6 (4.70-6.10); RED CELL DISTRIBUTION WIDTH 13.4 % (11.5-14.5); WHITE BLOOD COUNT 8.4 X10'3 (4.5-11.0)
[2018-07-12] MEDS: propofol 1000mg/100ml bottle 100 ML IV PRN ×4 (02:58→19:35)
[2018-07-12 03:06] LABS: ALBUMIN 2.9 G/DL (3.4-5.0); ALBUMIN/GLOBULIN RATIO 0.8 (1.1-1.5); ALKALINE PHOSPHATASE 63 IU/L (46-116); BILIRUBIN,TOTAL 0.4 MG/DL (0.1-1.0); BLOOD UREA NITROGEN 12 MG/DL (7-18); BUN/CREATININE RATIO 18.2 (5.4-32.0); CHLORIDE 105 MMOL/L (99-107); CREATININE 0.66 MG/DL (0.60-1.10); MAGNESIUM 1.6 MG/DL (1.5-2.4); PHOSPHORUS 5.3 MG/DL (2.3-4.5); TOTAL CARBON DIOXIDE 28.5 MMOL/L (24-32); TOTAL PROTEIN 6.4 G/DL (6.4-8.2); eGFR > 90 ML/MIN
[2018-07-12 03:26] LABS: ABG BASE EXCESS -1.1 mmol/L (-2.0-3.0); ABG HCO3 23.8 mmol/L (22.0-26.0); ABG OXYGEN SATURATION 96.2 % (95-98); ABG PCO2 (T) 40.1 mmHg (35.0-48.0); ABG PO2 (T) 91.8 mmHg (83-108); ALLEN'S TEST Positive; FCOHb 0.4 % (0.5-1.5); FMetHb 0.1 % (0.3-1.12); FO2Hb 95.7 % (94-100); MINUTE VOLUME 12 L/min; PATIENT TEMPERATURE 36.9; PEEP 5 cm H2O; RESPIRATORY RATE (OBSERVED) 21 b/min; TOTAL HEMOGLOBIN 13.5 G/dl (14.0-18.0)
[2018-07-12 03:30] LABS: ALANINE AMINOTRANSFERASE 18 U/L (12-78); ANION GAP 10 (8-16); ASPARTATE AMINO TRANSFERASE 19 U/L (10-37); GLUCOSE 110 MG/DL (70-104); POTASSIUM 3.9 MMOL/L (3.5-5.1); SODIUM 143 MMOL/L (135-145)
[2018-07-12 07:19] LABS: TROPONIN I < 0.04 NG/ML (0.0-0.05)
[2018-07-12] MEDS: citalopram 20mg tablet PO SCH (07:23)
[2018-07-12] MEDS: pantoprazole 40mg Tablet.DR PO SCH (07:23)
[2018-07-12] MEDS: aspirin 81mg tablet.DR PO SCH (07:23)
[2018-07-12] MEDS: aripiprazole 5mg tablet PO SCH (07:23)
[2018-07-12] MEDS: hydrOXYzine 25 MG tablet PO SCH ×3 (07:24→19:35)
[2018-07-12] MEDS: potassium Cl 20 mEq SR tablet PO SCH (07:24)
[2018-07-12] MEDS: enoxaparin 40mg/0.4ml syringe SUBCUT SCH (07:26)
[2018-07-12] MEDS: naltrexone 50mg tablet PO SCH (07:29)
[2018-07-12] MEDS: carVEDilol 3.125mg tablet PO SCH ×2 (07:34→19:01)
[2018-07-12] MEDS: K, MAG and/or Phos replacement - Verify level? MC SCH (07:34)
[2018-07-12] MEDS: docusate sod 100mg capsule PO SCH ×2 (07:34→19:35)
[2018-07-12] MEDS: ondansetron/PF 4mg/2ml inj IV PRN ×2 (07:41→17:19)
[2018-07-12] MEDS: sodium chloride 0.45% 1,000 ML IV SCH (11:15)
[2018-07-12] MEDS: midazolam 100mg in NS 100ml 100 ML IV PRN (21:20)
[2018-07-13] VITALS (24 sets, daily range): BP systolic 74–127; BP diastolic 54–87
[2018-07-13] MEDS: dexmedetomidin/NS 400mcg/100ml 100 ML IV SCH ×4 (01:04→23:12)
[2018-07-13 02:20] LABS: BASOPHILS # (AUTO) 0.1 X10'3 (0-0.2); BASOPHILS % (AUTO) 0.6 % (0-1); EOSINOPHILS # (AUTO) 0.3 X10'3 (0-0.9); EOSINOPHILS % (AUTO) 3.4 % (0-6); HEMATOCRIT 35.8 % (42.0-52.0); HEMOGLOBIN 12.3 g/dl (14.0-17.9); LYMPHOCYTES % (AUTO) 21.5 % (21-51); MEAN CORPUSCULAR HEMOGLOBIN 31.3 PG (27.0-31.0); MEAN CORPUSCULAR HGB CONC 34.3 % (33.0-36.5); MEAN CORPUSCULAR VOLUME 91.3 FL (78-98); MONOCYTES # (AUTO) 1.4 X10'3 (0-0.9); MONOCYTES % (AUTO) 15.6 % (2-12); NEUTROPHILS # (AUTO) 5.4 X10'3 (1.8-7.7); NEUTROPHILS % (AUTO) 58.9 % (42-75); PLATELET COUNT 242 X10'3 (140-440); RED BLOOD COUNT 3.92 X10'6 (4.70-6.10); RED CELL DISTRIBUTION WIDTH 13.3 % (11.5-14.5); WHITE BLOOD COUNT 9.2 X10'3 (4.5-11.0)
[2018-07-13] MEDS: mineral oil/petrolatum ophthal oint EACHEYE SCH ×4 (02:20→20:37)
[2018-07-13] MEDS: piperacillin/tazo 3.375gm/50ml 50 ML IV SCH ×4 (02:20→20:37)
[2018-07-13 02:35] LABS: ALANINE AMINOTRANSFERASE 15 U/L (12-78); ALBUMIN/GLOBULIN RATIO 0.8 (1.1-1.5); ALKALINE PHOSPHATASE 69 IU/L (46-116); ANION GAP 7 (8-16); ASPARTATE AMINO TRANSFERASE 15 U/L (10-37); BILIRUBIN,TOTAL 0.4 MG/DL (0.1-1.0); BLOOD UREA NITROGEN 12 MG/DL (7-18); BUN/CREATININE RATIO 19.4 (5.4-32.0); CALCIUM 9.3 MG/DL (8.5-10.1); CHLORIDE 103 MMOL/L (99-107); CREATININE 0.62 MG/DL (0.60-1.10); GLUCOSE 95 MG/DL (70-104); MAGNESIUM 1.6 MG/DL (1.5-2.4); PHOSPHORUS 4.8 MG/DL (2.3-4.5); SODIUM 140 MMOL/L (135-145); TOTAL PROTEIN 6.7 G/DL (6.4-8.2); eGFR > 90 ML/MIN
[2018-07-13] MEDS: sodium chloride 0.45% 1,000 ML IV SCH ×2 (02:55→20:36)
[2018-07-13 04:21] LABS: ABG BASE EXCESS -0.1 mmol/L (-2.0-3.0); ABG HCO3 24.8 mmol/L (22.0-26.0); ABG OXYGEN SATURATION 94.2 % (95-98); ABG PCO2 (T) 40.4 mmHg (35.0-48.0); ABG PH (T) 7.404 (7.350-7.450); ABG PO2 (T) 74.6 mmHg (83-108); ALLEN'S TEST Positive; FCOHb 0.6 % (0.5-1.5); FO2Hb 93.6 % (94-100); PATIENT TEMPERATURE 36.6
[2018-07-13] MEDS: K, MAG and/or Phos replacement - Verify level? MC SCH (08:00)
[2018-07-13] MEDS: carVEDilol 3.125mg tablet PO SCH ×2 (08:17→20:00)
[2018-07-13] MEDS: enoxaparin 40mg/0.4ml syringe SUBCUT SCH (08:17)
[2018-07-13] MEDS: citalopram 20mg tablet PO SCH (08:17)
[2018-07-13] MEDS: aspirin 81mg tablet.DR PO SCH (08:17)
[2018-07-13] MEDS: pantoprazole 40mg Tablet.DR PO SCH (08:17)
[2018-07-13] MEDS: potassium Cl 20 mEq SR tablet PO SCH (08:17)
[2018-07-13] MEDS: docusate sodium 100mg/10ml UD cup PO SCH ×2 (08:17→20:37)
[2018-07-13] MEDS: hydrOXYzine 25 MG tablet PO SCH ×3 (08:17→20:37)
[2018-07-13] MEDS: aripiprazole 5mg tablet PO SCH (08:18)
[2018-07-13] MEDS: naltrexone 50mg tablet PO SCH (08:23)
[2018-07-13] MEDS: midazolam 100mg in NS 100ml 100 ML IV PRN (13:14)
[2018-07-13] MEDS: NORepinephrine 8mg/ 250ml NS 250 ML IV SCH (19:35)
[2018-07-14] VITALS (24 sets, daily range): BP systolic 78–124; BP diastolic 51–84
[2018-07-14] MEDS: mineral oil/petrolatum ophthal oint EACHEYE SCH ×4 (02:13→20:59)
[2018-07-14] MEDS: piperacillin/tazo 3.375gm/50ml 50 ML IV SCH ×2 (02:14→07:59)
[2018-07-14 02:52] LABS: ALANINE AMINOTRANSFERASE 21 U/L (12-78); ALBUMIN 2.8 G/DL (3.4-5.0); ALBUMIN/GLOBULIN RATIO 0.8 (1.1-1.5); ALKALINE PHOSPHATASE 66 IU/L (46-116); ANION GAP 9 (8-16); ASPARTATE AMINO TRANSFERASE 19 U/L (10-37); BILIRUBIN,TOTAL 0.5 MG/DL (0.1-1.0); BLOOD UREA NITROGEN 13 MG/DL (7-18); BUN/CREATININE RATIO 21.3 (5.4-32.0); CALCIUM 9.4 MG/DL (8.5-10.1); CHLORIDE 102 MMOL/L (99-107); CREATININE 0.61 MG/DL (0.60-1.10); GLUCOSE 101 MG/DL (70-104); MAGNESIUM 1.5 MG/DL (1.5-2.4); PHOSPHORUS 4.5 MG/DL (2.3-4.5); POTASSIUM 3.9 MMOL/L (3.5-5.1); PREALBUMIN 17.8 MG/DL (19-36); SODIUM 140 MMOL/L (135-145); TOTAL CARBON DIOXIDE 29.3 MMOL/L (24-32); TOTAL PROTEIN 6.5 G/DL (6.4-8.2); eGFR > 90 ML/MIN
[2018-07-14 03:02] LABS: BASOPHILS % (AUTO) 0.5 % (0-1); EOSINOPHILS # (AUTO) 0.2 X10'3 (0-0.9); EOSINOPHILS % (AUTO) 2.6 % (0-6); HEMATOCRIT 35.6 % (42.0-52.0); HEMOGLOBIN 12.4 g/dl (14.0-17.9); LYMPHOCYTES # (AUTO) 2.1 X10'3 (1.1-4.8); LYMPHOCYTES % (AUTO) 22.2 % (21-51); MEAN CORPUSCULAR HEMOGLOBIN 31.5 PG (27.0-31.0); MEAN CORPUSCULAR HGB CONC 34.7 % (33.0-36.5); MEAN CORPUSCULAR VOLUME 90.7 FL (78-98); MEAN PLATELET VOLUME 7.4 FL (7.4-10.4); MONOCYTES # (AUTO) 1.4 X10'3 (0-0.9); MONOCYTES % (AUTO) 15.1 % (2-12); NEUTROPHILS # (AUTO) 5.7 X10'3 (1.8-7.7); NEUTROPHILS % (AUTO) 59.6 % (42-75); PLATELET COUNT 222 X10'3 (140-440); RED BLOOD COUNT 3.93 X10'6 (4.70-6.10); RED CELL DISTRIBUTION WIDTH 13.1 % (11.5-14.5); WHITE BLOOD COUNT 9.5 X10'3 (4.5-11.0)
[2018-07-14] MEDS: midazolam 100mg in NS 100ml 100 ML IV PRN ×2 (04:22→19:10)
[2018-07-14] MEDS: dexmedetomidin/NS 400mcg/100ml 100 ML IV SCH ×4 (04:22→19:10)
[2018-07-14 04:50] LABS: ABG BASE EXCESS 1.4 mmol/L (-2.0-3.0); ABG HCO3 25.6 mmol/L (22.0-26.0); ABG OXYGEN SATURATION 96.1 % (95-98); ABG PCO2 (T) 39.1 mmHg (35.0-48.0); ABG PH (T) 7.434 (7.350-7.450); ABG PO2 (T) 86.6 mmHg (83-108); ALLEN'S TEST Positive; FCOHb 0.6 % (0.5-1.5); FMetHb 0.1 % (0.3-1.12); FO2Hb 95.4 % (94-100)
[2018-07-14] MEDS: carVEDilol 3.125mg tablet PO SCH ×2 (07:53→20:00)
[2018-07-14] MEDS: hydrOXYzine 25 MG tablet PO SCH ×3 (07:53→21:01)
[2018-07-14] MEDS: docusate sodium 100mg/10ml UD cup PO SCH ×2 (07:53→20:00)
[2018-07-14] MEDS: citalopram 20mg tablet PO SCH (07:53)
[2018-07-14] MEDS: aspirin 81mg tablet.DR PO SCH (07:53)
[2018-07-14] MEDS: aripiprazole 5mg tablet PO SCH (07:53)
[2018-07-14] MEDS: pantoprazole 40mg Tablet.DR PO SCH (07:53)
[2018-07-14] MEDS: potassium Cl 20 mEq SR tablet PO SCH (07:53)
[2018-07-14] MEDS: naltrexone 50mg tablet PO SCH (07:54)
[2018-07-14] MEDS: enoxaparin 40mg/0.4ml syringe SUBCUT SCH (07:55)
[2018-07-14] MEDS: K, MAG and/or Phos replacement - Verify level? MC SCH (07:55)
[2018-07-14] MEDS: sodium chloride 0.45% 1,000 ML IV SCH ×2 (12:15→21:01)
[2018-07-14] MEDS: OLANZapine **IM** 10 mg inj. IM SCH (12:36)
[2018-07-15] VITALS (23 sets, daily range): BP systolic 73–108; BP diastolic 54–75
[2018-07-15] MEDS: mineral oil/petrolatum ophthal oint EACHEYE SCH ×4 (02:24→20:00)
[2018-07-15 02:41] LABS: BASOPHILS % (AUTO) 0.6 % (0-1); EOSINOPHILS # (AUTO) 0.2 X10'3 (0-0.9); EOSINOPHILS % (AUTO) 2.6 % (0-6); HEMATOCRIT 35.1 % (42.0-52.0); LYMPHOCYTES # (AUTO) 2.1 X10'3 (1.1-4.8); LYMPHOCYTES % (AUTO) 28.9 % (21-51); MEAN CORPUSCULAR HGB CONC 34.3 % (33.0-36.5); MEAN CORPUSCULAR VOLUME 90.4 FL (78-98); MEAN PLATELET VOLUME 7.2 FL (7.4-10.4); MONOCYTES # (AUTO) 1.1 X10'3 (0-0.9); MONOCYTES % (AUTO) 15.9 % (2-12); NEUTROPHILS # (AUTO) 3.7 X10'3 (1.8-7.7); PLATELET COUNT 229 X10'3 (140-440); RED BLOOD COUNT 3.88 X10'6 (4.70-6.10); WHITE BLOOD COUNT 7.2 X10'3 (4.5-11.0)
[2018-07-15 02:59] LABS: ALANINE AMINOTRANSFERASE 17 U/L (12-78); ALBUMIN 2.8 G/DL (3.4-5.0); ALBUMIN/GLOBULIN RATIO 0.8 (1.1-1.5); ALKALINE PHOSPHATASE 64 IU/L (46-116); ANION GAP 8 (8-16); ASPARTATE AMINO TRANSFERASE 19 U/L (10-37); BILIRUBIN,TOTAL 0.3 MG/DL (0.1-1.0); BLOOD UREA NITROGEN 14 MG/DL (7-18); BUN/CREATININE RATIO 25.9 (5.4-32.0); CALCIUM 9.6 MG/DL (8.5-10.1); CHLORIDE 103 MMOL/L (99-107); CREATININE 0.54 MG/DL (0.60-1.10); GLUCOSE 123 MG/DL (70-104); MAGNESIUM 1.5 MG/DL (1.5-2.4); PHOSPHORUS 5.4 MG/DL (2.3-4.5); SODIUM 141 MMOL/L (135-145); TOTAL CARBON DIOXIDE 30.1 MMOL/L (24-32); TOTAL PROTEIN 6.5 G/DL (6.4-8.2); eGFR > 90 ML/MIN
[2018-07-15 04:35] LABS: ABG BASE EXCESS 1.9 mmol/L (-2.0-3.0); ABG HCO3 27.3 mmol/L (22.0-26.0); ABG OXYGEN SATURATION 96.8 % (95-98); ABG PCO2 (T) 45.7 mmHg (35.0-48.0); ABG PH (T) 7.394 (7.350-7.450); ABG PO2 (T) 93.6 mmHg (83-108); ALLEN'S TEST Positive; FCOHb 0.7 % (0.5-1.5); FMetHb 0.1 % (0.3-1.12); PATIENT TEMPERATURE 36.8; TOTAL HEMOGLOBIN 13.2 G/dl (14.0-18.0)
[2018-07-15] MEDS: midazolam 100mg in NS 100ml 100 ML IV PRN (04:38)
[2018-07-15] MEDS: carVEDilol 3.125mg tablet PO SCH ×2 (08:00→14:01)
[2018-07-15] MEDS: K, MAG and/or Phos replacement - Verify level? MC SCH (08:00)
[2018-07-15] MEDS: citalopram 20mg tablet PO SCH (08:38)
[2018-07-15] MEDS: OLANZapine **IM** 10 mg inj. IM SCH (08:38)
[2018-07-15] MEDS: docusate sodium 100mg/10ml UD cup PO SCH ×2 (08:39→20:00)
[2018-07-15] MEDS: pantoprazole 40mg Tablet.DR PO SCH (08:39)
[2018-07-15] MEDS: hydrOXYzine 25 MG tablet PO SCH ×3 (08:39→21:16)
[2018-07-15] MEDS: potassium Cl 20 mEq SR tablet PO SCH (08:39)
[2018-07-15] MEDS: aripiprazole 5mg tablet PO SCH (08:39)
[2018-07-15] MEDS: aspirin 81mg tablet.DR PO SCH (08:39)
[2018-07-15] MEDS: naltrexone 50mg tablet PO SCH (08:39)
[2018-07-15] MEDS: enoxaparin 40mg/0.4ml syringe SUBCUT SCH (08:40)
[2018-07-15] MEDS ORDERED: OLANZapine **IM** 10 mg inj. IM SCH (11:12)
[2018-07-15] MEDS: dexmedetomidin/NS 400mcg/100ml 100 ML IV SCH ×3 (14:08→22:50)
[2018-07-15] MEDS: ipratropium/albuterol 3ml nebule NEB SCH ×3 (15:19→23:36)
[2018-07-15] MEDS ORDERED: LORazepam 2 mg/ml vial IV PRN (19:40)
[2018-07-15] MEDS: olanzapine 10mg tablet PO SCH (21:16)
[2018-07-15] MEDS: sodium chloride 0.45% 1,000 ML IV SCH (22:36)
[2018-07-16] VITALS (19 sets, daily range): BP systolic 79–137; BP diastolic 62–91
[2018-07-16] MEDS: dexmedetomidin/NS 400mcg/100ml 100 ML IV SCH ×2 (03:41→09:32)
[2018-07-16 05:47] LABS: BASOPHILS % (AUTO) 0.5 % (0-1); EOSINOPHILS # (AUTO) 0.2 X10'3 (0-0.9); EOSINOPHILS % (AUTO) 2.3 % (0-6); HEMATOCRIT 35.3 % (42.0-52.0); HEMOGLOBIN 12.1 g/dl (14.0-17.9); LYMPHOCYTES # (AUTO) 2.1 X10'3 (1.1-4.8); LYMPHOCYTES % (AUTO) 24.4 % (21-51); MEAN CORPUSCULAR HGB CONC 34.2 % (33.0-36.5); MEAN CORPUSCULAR VOLUME 90.6 FL (78-98); MEAN PLATELET VOLUME 7.5 FL (7.4-10.4); MONOCYTES % (AUTO) 11.9 % (2-12); NEUTROPHILS # (AUTO) 5.3 X10'3 (1.8-7.7); NEUTROPHILS % (AUTO) 60.9 % (42-75); PLATELET COUNT 240 X10'3 (140-440); RED BLOOD COUNT 3.89 X10'6 (4.70-6.10); WHITE BLOOD COUNT 8.7 X10'3 (4.5-11.0)
[2018-07-16 05:58] LABS: ALANINE AMINOTRANSFERASE 19 U/L (12-78); ALBUMIN/GLOBULIN RATIO 0.8 (1.1-1.5); ALKALINE PHOSPHATASE 67 IU/L (46-116); ANION GAP 9 (8-16); ASPARTATE AMINO TRANSFERASE 23 U/L (10-37); BILIRUBIN,TOTAL 0.5 MG/DL (0.1-1.0); BLOOD UREA NITROGEN 13 MG/DL (7-18); BUN/CREATININE RATIO 21.7 (5.4-32.0); CALCIUM 10.1 MG/DL (8.5-10.1); CHLORIDE 103 MMOL/L (99-107); GLUCOSE 102 MG/DL (70-104); MAGNESIUM 1.5 MG/DL (1.5-2.4); PHOSPHORUS 5.9 MG/DL (2.3-4.5); SODIUM 141 MMOL/L (135-145); TOTAL CARBON DIOXIDE 28.9 MMOL/L (24-32); TOTAL PROTEIN 6.8 G/DL (6.4-8.2); eGFR > 90 ML/MIN
[2018-07-16] MEDS: ipratropium/albuterol 3ml nebule NEB SCH ×5 (06:54→23:00)
[2018-07-16] MEDS: citalopram 20mg tablet PO SCH (07:24)
[2018-07-16] MEDS: aspirin 81mg tablet.DR PO SCH (07:24)
[2018-07-16] MEDS: hydrOXYzine 25 MG tablet PO SCH ×3 (07:24→21:03)
[2018-07-16] MEDS: pantoprazole 40mg Tablet.DR PO SCH (07:24)
[2018-07-16] MEDS: potassium Cl 20 mEq SR tablet PO SCH (07:24)
[2018-07-16] MEDS: aripiprazole 5mg tablet PO SCH (07:26)
[2018-07-16] MEDS: folic acid 1mg tablet PO SCH (07:26)
[2018-07-16] MEDS: olanzapine 10mg tablet PO SCH ×2 (07:26→21:03)
[2018-07-16] MEDS: thiamine 100mg tablet PO SCH (07:26)
[2018-07-16] MEDS: multivitamins, therapeutics tablet PO SCH (07:26)
[2018-07-16] MEDS: naltrexone 50mg tablet PO SCH (07:26)
[2018-07-16] MEDS: enoxaparin 40mg/0.4ml syringe SUBCUT SCH (07:27)
[2018-07-16] MEDS: K, MAG and/or Phos replacement - Verify level? MC SCH (08:00)
[2018-07-16] MEDS: carVEDilol 3.125mg tablet PO SCH ×2 (08:00→21:03)
[2018-07-16] MEDS: docusate sodium 100mg/10ml UD cup PO SCH ×2 (08:00→20:00)
[2018-07-16] MEDS: sodium chloride 0.45% 1,000 ML IV SCH (09:33)
[2018-07-17 02:00] VITALS: BP 122/86
[2018-07-17 05:01] LABS: BASOPHILS % (AUTO) 0.3 % (0-1); EOSINOPHILS # (AUTO) 0.1 X10'3 (0-0.9); EOSINOPHILS % (AUTO) 0.7 % (0-6); HEMATOCRIT 38.8 % (42.0-52.0); LYMPHOCYTES # (AUTO) 1.9 X10'3 (1.1-4.8); LYMPHOCYTES % (AUTO) 19.5 % (21-51); MEAN CORPUSCULAR HEMOGLOBIN 30.4 PG (27.0-31.0); MEAN CORPUSCULAR HGB CONC 33.5 % (33.0-36.5); MEAN CORPUSCULAR VOLUME 90.8 FL (78-98); MEAN PLATELET VOLUME 7.4 FL (7.4-10.4); MONOCYTES # (AUTO) 1.2 X10'3 (0-0.9); MONOCYTES % (AUTO) 12.3 % (2-12); NEUTROPHILS # (AUTO) 6.7 X10'3 (1.8-7.7); NEUTROPHILS % (AUTO) 67.2 % (42-75); PLATELET COUNT 301 X10'3 (140-440); RED BLOOD COUNT 4.27 X10'6 (4.70-6.10); RED CELL DISTRIBUTION WIDTH 13.9 % (11.5-14.5)
[2018-07-17 05:37] LABS: ALANINE AMINOTRANSFERASE 33 U/L (12-78); ALBUMIN 3.5 G/DL (3.4-5.0); ALBUMIN/GLOBULIN RATIO 0.9 (1.1-1.5); ALKALINE PHOSPHATASE 82 IU/L (46-116); ANION GAP 12 (8-16); ASPARTATE AMINO TRANSFERASE 30 U/L (10-37); BILIRUBIN,TOTAL 0.5 MG/DL (0.1-1.0); BLOOD UREA NITROGEN 17 MG/DL (7-18); BUN/CREATININE RATIO 26.2 (5.4-32.0); CALCIUM 10.2 MG/DL (8.5-10.1); CHLORIDE 100 MMOL/L (99-107); CREATININE 0.65 MG/DL (0.60-1.10); GLUCOSE 110 MG/DL (70-104); MAGNESIUM 1.4 MG/DL (1.5-2.4); POTASSIUM 3.9 MMOL/L (3.5-5.1); PREALBUMIN 23.2 MG/DL (19-36); SODIUM 138 MMOL/L (135-145); TOTAL CARBON DIOXIDE 25.8 MMOL/L (24-32); TOTAL PROTEIN 7.5 G/DL (6.4-8.2); TROPONIN I 0.05 NG/ML (0.0-0.05); eGFR > 90 ML/MIN
[2018-07-17 06:00] VITALS: BP 123/87
[2018-07-17] MEDS: pantoprazole 40mg Tablet.DR PO SCH (07:30)
[2018-07-17] MEDS: ipratropium/albuterol 3ml nebule NEB SCH ×5 (07:42→23:00)
[2018-07-17] MEDS: docusate sodium 100mg/10ml UD cup PO SCH ×2 (08:00→20:00)
[2018-07-17] MEDS: normal saline 1000ml 1,000 ML IV SCH ×2 (09:23→21:05)
[2018-07-17] MEDS: thiamine 100mg tablet PO SCH (09:25)
[2018-07-17] MEDS: aripiprazole 5mg tablet PO SCH (09:25)
[2018-07-17] MEDS: olanzapine 10mg tablet PO SCH ×2 (09:25→21:03)
[2018-07-17] MEDS: citalopram 20mg tablet PO SCH (09:26)
[2018-07-17] MEDS: carVEDilol 3.125mg tablet PO SCH ×2 (09:26→21:03)
[2018-07-17] MEDS: aspirin 81mg tablet.DR PO SCH (09:26)
[2018-07-17] MEDS: multivitamins, therapeutics tablet PO SCH (09:26)
[2018-07-17] MEDS: folic acid 1mg tablet PO SCH (09:26)
[2018-07-17] MEDS: hydrOXYzine 25 MG tablet PO SCH ×3 (09:26→21:03)
[2018-07-17] MEDS: potassium Cl 20 mEq SR tablet PO SCH (09:27)
[2018-07-17] MEDS: enoxaparin 40mg/0.4ml syringe SUBCUT SCH (09:27)
[2018-07-17] MEDS: naltrexone 50mg tablet PO SCH (14:02)
[2018-07-17 15:00] VITALS: BP 112/71
[2018-07-17 18:00] VITALS: BP 108/78
[2018-07-17] MEDS: K, MAG and/or Phos replacement - Verify level? MC SCH (18:56)
[2018-07-17] MEDS ORDERED: magnesium Cl slow-release 64mg tablet PO PRN (19:35)
[2018-07-17 22:00] VITALS: BP 103/59
[2018-07-18 02:00] VITALS: BP 119/97
[2018-07-18 05:33] LABS: BASOPHILS % (AUTO) 0.4 % (0-1); EOSINOPHILS # (AUTO) 0.2 X10'3 (0-0.9); EOSINOPHILS % (AUTO) 1.7 % (0-6); HEMATOCRIT 35.7 % (42.0-52.0); HEMOGLOBIN 12.1 g/dl (14.0-17.9); LYMPHOCYTES # (AUTO) 1.9 X10'3 (1.1-4.8); LYMPHOCYTES % (AUTO) 15.9 % (21-51); MEAN CORPUSCULAR HEMOGLOBIN 30.9 PG (27.0-31.0); MEAN CORPUSCULAR HGB CONC 33.9 % (33.0-36.5); MEAN CORPUSCULAR VOLUME 91.1 FL (78-98); MEAN PLATELET VOLUME 7.6 FL (7.4-10.4); MONOCYTES # (AUTO) 1.3 X10'3 (0-0.9); MONOCYTES % (AUTO) 10.7 % (2-12); NEUTROPHILS # (AUTO) 8.4 X10'3 (1.8-7.7); NEUTROPHILS % (AUTO) 71.3 % (42-75); PLATELET COUNT 269 X10'3 (140-440); RED BLOOD COUNT 3.92 X10'6 (4.70-6.10); RED CELL DISTRIBUTION WIDTH 13.7 % (11.5-14.5); WHITE BLOOD COUNT 11.9 X10'3 (4.5-11.0)
[2018-07-18 06:00] VITALS: BP 109/70
[2018-07-18 06:21] LABS: ALANINE AMINOTRANSFERASE 34 U/L (12-78); ALBUMIN 3.3 G/DL (3.4-5.0); ALBUMIN/GLOBULIN RATIO 0.9 (1.1-1.5); ALKALINE PHOSPHATASE 77 IU/L (46-116); ANION GAP 14 (8-16); ASPARTATE AMINO TRANSFERASE 28 U/L (10-37); BILIRUBIN,TOTAL 0.5 MG/DL (0.1-1.0); BLOOD UREA NITROGEN 18 MG/DL (7-18); BUN/CREATININE RATIO 28.6 (5.4-32.0); CALCIUM 9.7 MG/DL (8.5-10.1); CHLORIDE 105 MMOL/L (99-107); CREATININE 0.63 MG/DL (0.60-1.10); GLUCOSE 99 MG/DL (70-104); MAGNESIUM 1.4 MG/DL (1.5-2.4); PHOSPHORUS 4.5 MG/DL (2.3-4.5); POTASSIUM 3.6 MMOL/L (3.5-5.1); SODIUM 143 MMOL/L (135-145); TOTAL CARBON DIOXIDE 24.4 MMOL/L (24-32); eGFR > 90 ML/MIN
[2018-07-18] MEDS: ipratropium/albuterol 3ml nebule NEB SCH ×2 (07:29→11:01)
[2018-07-18] MEDS: docusate sodium 100mg/10ml UD cup PO SCH (08:00)
[2018-07-18] MEDS: enoxaparin 40mg/0.4ml syringe SUBCUT SCH (10:14)
[2018-07-18] MEDS: citalopram 20mg tablet PO SCH (10:15)
[2018-07-18] MEDS: folic acid 1mg tablet PO SCH (10:15)
[2018-07-18] MEDS: hydrOXYzine 25 MG tablet PO SCH ×2 (10:15→12:46)
[2018-07-18] MEDS: aripiprazole 5mg tablet PO SCH (10:15)
[2018-07-18] MEDS: carVEDilol 3.125mg tablet PO SCH (10:15)
[2018-07-18] MEDS: aspirin 81mg tablet.DR PO SCH (10:15)
[2018-07-18] MEDS: pantoprazole 40mg Tablet.DR PO SCH (10:18)
[2018-07-18] MEDS ORDERED: IPRA3AMP9 NEB (10:50)
[2018-07-18 11:00] VITALS: BP 114/72
[2018-07-18] MEDS: normal saline 1000ml 1,000 ML IV SCH (11:40)
[2018-07-18] MEDS: olanzapine 10mg tablet PO SCH (12:46)
[2018-07-18] MEDS: multivitamins, therapeutics tablet PO SCH (12:46)
[2018-07-18] MEDS: naltrexone 50mg tablet PO SCH (12:46)
[2018-07-18] MEDS: potassium Cl 20 mEq SR tablet PO SCH (12:47)
[2018-07-18] MEDS: thiamine 100mg tablet PO SCH (12:47)
== END 2018-07-18 14:45 | disposition home health service (06) | DRG 720 ==
LOC: ER 01:35 → ED HOLD 04:13 → ICU 2S 05:29 → PCU 3S 07-16 15:41
PROVIDERS: ATTEND Internal Medicine
PROC: B32T1ZZ Computerized Tomography (CT Scan) of Left Pulmonary Artery using Low Osmolar Contrast (ICD-10-PCS; principal; 2018-07-07)
PROC: 5A1955Z Respiratory Ventilation, Greater than 96 Consecutive Hours (ICD-10-PCS; 2018-07-07)
PROC: B3201ZZ Computerized Tomography (CT Scan) of Thoracic Aorta using Low Osmolar Contrast (ICD-10-PCS; 2018-07-07)
PROC: B32S1ZZ Computerized Tomography (CT Scan) of Right Pulmonary Artery using Low Osmolar Contrast (ICD-10-PCS; 2018-07-07)
PROC: 0BH17EZ Insertion of Endotracheal Airway into Trachea, Via Natural or Artificial Opening (ICD-10-PCS; 2018-07-07)
PROC: 5A09357 Assistance with Respiratory Ventilation, Less than 24 Consecutive Hours, Continuous Positive Airway Pressure (ICD-10-PCS; 2018-07-07)
PROC: 02HV33Z Insertion of Infusion Device into Superior Vena Cava, Percutaneous Approach (ICD-10-PCS; 2018-07-07)
PROC: B548ZZA Ultrasonography of Superior Vena Cava, Guidance (ICD-10-PCS; 2018-07-07)
DX: A41.9 Sepsis, unspecified organism (principal); J96.01 Acute respiratory failure with hypoxia; G93.40 Encephalopathy, unspecified; J18.9 Pneumonia, unspecified organism; J84.10 Pulmonary fibrosis, unspecified; E87.4 Mixed disorder of acid-base balance; J44.0 Chronic obstructive pulmonary disease with (acute) lower respiratory infection; E11.65 Type 2 diabetes mellitus with hyperglycemia; E83.42 Hypomagnesemia; F10.239 Alcohol dependence with withdrawal, unspecified; F12.10 Cannabis abuse, uncomplicated; F17.210 Nicotine dependence, cigarettes, uncomplicated; J44.1 Chronic obstructive pulmonary disease with (acute) exacerbation; I10 Essential (primary) hypertension; R21 Rash and other nonspecific skin eruption; G40.909 Epilepsy, unspecified, not intractable, without status epilepticus; F31.9 Bipolar disorder, unspecified; F41.1 Generalized anxiety disorder; Z68.41 Body mass index [BMI] 40.0-44.9, adult; Z79.899 Other long term (current) drug therapy; Z79.82 Long term (current) use of aspirin; Z87.01 Personal history of pneumonia (recurrent)
CPT/HCPCS: 36415; 36600; 71045; 71275; 80053; 80202; 80305; 80320; 82803; 82810; 82948; 83605; 83735; 83880; 84100; 84132; 84134; 84145; 84484; 85018; 85025; 85379; 85610; 85730; 86703; 86706; 86803; 87040; 87070; 87340; 93005; 93306; 94002; 94003; 94640; 94660; 94760; 96365; 96375; 96376; 97110; 97116; 97161; 97530; 99291; A6213; A6250; A6449; C1758; C1894; J0696; J1650; J1940; J1956; J2060; J2250; J2405; J2543; J2704; J3370; J3411; J3475; J3480; J3490; J7030; P9047; Q0177; Q9967

== ENCOUNTER 2018-10-25 07:58 | Inpatient (IN) | payer MEDICAID | END 2018-10-28 16:15 | disposition home or self-care (01) | LOC: ER 07:58 → ED HOLD 11:43 → PCU 3S 17:15 ==

== ENCOUNTER 2019-04-22 00:34 | Inpatient (IN) | payer MEDICAID ==
[2019-04-22] VITALS (19 sets, daily range): BP systolic 99–157; BP diastolic 52–97
[~2019-04-22] VITALS: Ht 180.3 cm; Wt 67.8 kg
[~2019-04-22 00:34] MED LIST changes: -ATI1T PO; +IPRA3AMP9 NEB; +MAGN400C PO; +MIRT30TA3 PO; +NALT50TA PO; -POTA20TA19 PO; -PRED20TA PO
[2019-04-22] MEDS ORDERED: normal saline 1000ML IV soln IV ONE (00:40)
[2019-04-22] MEDS ORDERED: ipratropium/albuterol 3ml nebule NEB ONE (00:40)
[2019-04-22] MEDS ORDERED: piperacillin/tazo 4.5gm/100ml 100 ML IV SCH (00:54)
[2019-04-22 00:59] LABS: BASOPHILS % (AUTO) 0.3 % (0-1); EOSINOPHILS # (AUTO) 0.1 X10'3 (0-0.9); EOSINOPHILS % (AUTO) 0.3 % (0-6); HEMATOCRIT 43.1 % (42.0-52.0); HEMOGLOBIN 14.8 g/dl (14.0-17.9); LYMPHOCYTES # (AUTO) 2.2 X10'3 (1.1-4.8); LYMPHOCYTES % (AUTO) 12.3 % (21-51); MEAN CORPUSCULAR HEMOGLOBIN 32.9 PG (27.0-31.0); MEAN CORPUSCULAR HGB CONC 34.3 g/dL (33.0-36.5); MEAN CORPUSCULAR VOLUME 96.1 FL (78-98); MONOCYTES # (AUTO) 1.5 X10'3 (0-0.9); MONOCYTES % (AUTO) 8.5 % (2-12); NEUTROPHILS # (AUTO) 14.1 X10'3 (1.8-7.7); NEUTROPHILS % (AUTO) 78.6 % (42-75); PLATELET COUNT 234 X10'3 (140-440); RED BLOOD COUNT 4.48 X10'6 (4.70-6.10); RED CELL DISTRIBUTION WIDTH 14.7 % (11.5-14.5); WHITE BLOOD COUNT 17.9 X10'3 (4.5-11.0)
--- NOTE | 2019-04-22 01:05 | NUR ---
Patient BIB EMS with extreme SOB, with RT and Lab. I will continue to monitor.
[2019-04-22 01:11] LABS: ALANINE AMINOTRANSFERASE 61 U/L (12-78); ALBUMIN 3.1 G/DL (3.4-5.0); ALBUMIN/GLOBULIN RATIO 0.9 (1.1-1.5); ALKALINE PHOSPHATASE 91 IU/L (46-116); ANION GAP 15 (8-16); ASPARTATE AMINO TRANSFERASE 36 U/L (10-37); BILIRUBIN,TOTAL 0.6 MG/DL (0.1-1.0); BLOOD UREA NITROGEN 21 MG/DL (7-18); BUN/CREATININE RATIO 20.6 (5.4-32.0); CHLORIDE 91 MMOL/L (99-107); CREATININE 1.02 MG/DL (0.60-1.10); GLUCOSE 107 MG/DL (70-104); SODIUM 126 MMOL/L (135-145); TOTAL CARBON DIOXIDE 20.3 MMOL/L (24-32); TOTAL PROTEIN 6.4 G/DL (6.4-8.2); eGFR 80 ML/MIN
[2019-04-22 01:13] LABS: PARTIAL THROMBOPLASTIN TIME 28 SECONDS (22-32)
[2019-04-22 01:16] LABS: ABG BASE EXCESS -5.1 mmol/L (-2.0-3.0); ABG HCO3 18.4 mmol/L (22.0-26.0); ABG OXYGEN SATURATION 86.5 % (95-98); ABG PCO2 (T) 28.8 mmHg (35.0-48.0); ABG PH (T) 7.419 (7.350-7.450); ABG PO2 (T) 56.7 mmHg (83-108); ALLEN'S TEST Positive; FCOHb 1.7 % (0.5-1.5); FLOW 15 L/min; FMetHb 0.1 % (0.3-1.12); FO2Hb 84.9 % (94-100); PATIENT TEMPERATURE 35.6; TOTAL HEMOGLOBIN 14.8 G/dl (14.0-18.0)
[2019-04-22 01:17] LABS: CALCIUM 5.6 MG/DL (8.5-10.1); MAGNESIUM 0.8 MG/DL (1.5-2.4); POTASSIUM 2.8 MMOL/L (3.5-5.1)
[2019-04-22] MEDS ORDERED: TIOT4MIS5 INH (01:21)
[2019-04-22] MEDS ORDERED: QUET50TA PO (01:21)
[2019-04-22] MEDS ORDERED: OMEP40CA37 PO (01:21)
[2019-04-22] MEDS ORDERED: SERT100T10 PO (01:21)
[2019-04-22] MEDS ORDERED: QUET-1 PO (01:21)
--- NOTE | 2019-04-22 01:35 | NUR ---
moved patient to bed #3, he is now on Bipap.
--- NOTE | 2019-04-22 01:37 | NUR ---
Patient is more alert and breathing easier with bipap in place.
[2019-04-22] MEDS ORDERED: magnesium 2GM in 50ml NS 50 ML IV ONE (01:55)
[2019-04-22] MEDS: potassium Cl 10 mEq/100mL bag IV SCH ×2 (02:10→03:04)
[2019-04-22 02:24] LABS: ETHANOL 0.241 GM/DL (0.0-0.010)
--- NOTE | 2019-04-22 02:30 | NUR ---
dr roque at bedside for admission. hr 104, otherwise vss. pt with some mild intermittent chest/lung pain, denies need for pain meds. ka nd mg ivpb infusing and 2nd of 2.5 liters infusing . fios on bipap 60%, sats 93%, pt appears comfortable.
[2019-04-22] MEDS: normal saline 1000ml 1,000 ML IV SCH ×2 (02:38→21:42)
[2019-04-22] MEDS ORDERED: ondansetron/PF 4mg/2ml inj IV PRN (02:40)
[2019-04-22] MEDS ORDERED: acetaminophen 325mg tablet PO PRN (02:40)
[2019-04-22] MEDS ORDERED: magnesium 2GM in 50ml NS 50 ML IV PRN (02:40)
[2019-04-22] MEDS ORDERED: potassium CL 10mEq/100ml bag 100 ML IV PRN (02:40)
[2019-04-22] MEDS ORDERED: magnesium 4gm in 100ml NS 100 ML IV PRN (02:40)
[2019-04-22] MEDS ORDERED: magnesium Cl slow-release 64mg tablet PO PRN (02:40)
[2019-04-22] MEDS ORDERED: potassium Cl 20 mEq SR tablet PO PRN ×2 (02:40)
[2019-04-22] MEDS ORDERED: methylPREDNISolone sod succ/PF 40mg inj. IV ONE (02:55)
[2019-04-22 03:01] LABS: CLARITY,URINE CLEAR (Clear); COLOR,URINE YELLOW (Yellow); GLUCOSE, URINE NEGATIVE (Neg); KETONES,URINE NEGATIVE (Neg); LEUKOCYTE ESTERASE ,URINE NEGATIVE (Neg); NITRITES, URINE NEGATIVE (Neg); OCCULT BLOOD,URINE TRACE-INTACT (Neg); PH,URINE 5.5 (4.8-8.0); PROTEIN,URINE NEGATIVE (Neg); UROBILINOGEN,URINE 0.2 E.U/dL (0.2-1.0)
[2019-04-22 03:05] LABS: UA COLLECTION TYPE CLN CATCH MIDSTREAM
[2019-04-22 03:07] LABS: MUCUS STRANDS FEW /LPF (Neg); SQUAMOUS EPITHELIAL CELL,UR FEW /LPF (FEW)
[2019-04-22 03:08] LABS: BACTERIA,URINE FEW /HPF (Neg); RBC,URINE 0-2 /HPF (0-2); WBC,URINE 0-4 /HPF (0-4)
[2019-04-22] MEDS: LORazepam 2 mg/ml vial IV PRN ×2 (04:12→07:41)
[2019-04-22] MEDS: potassium Cl 40MEQ/NS 500ml 500 ML IV PRN ×2 (05:49→10:56)
--- NOTE | 2019-04-22 06:36 | NUR ---
Patient in room PCU 3018. I have received report from AUSTIN Oreilly and had the opportunity to ask questions and assume patient care.
--- NOTE | 2019-04-22 06:45 | NUR ---
Pt sitting up in bed, anxious & breathing rapidly. Bipap settings adjusted to 90% O2. Pt transferred to room 3017A to provide direct line of site of this RN.
[2019-04-22] MEDS ORDERED: ipratropium/albuterol 3ml nebule NEB SCH (07:00)
--- NOTE | 2019-04-22 07:56 | NUR ---
Paged Dr. Solis re bipap setting adjustment. PAGER ID: [phone] MESSAGE: Pt Keith Colon in 3019N now on 100% O2 on bipap, breathing rapidly & anxious at times. Thanks! Linn AVILA [phone]
[2019-04-22] MEDS ORDERED: ipratropium 0.5 MG/2.5ML nebule NEB PRN (08:00)
[2019-04-22] MEDS ORDERED: K and/or MAG REPLACEMENT MC SCH (08:00)
[2019-04-22] MEDS ORDERED: naltrexone 50mg tablet PO SCH (08:00)
[2019-04-22] MEDS: aspirin 81mg tablet.DR PO SCH (08:59)
[2019-04-22] MEDS: pantoprazole 40mg Tablet.DR PO SCH (08:59)
[2019-04-22] MEDS: carVEDilol 3.125mg tablet PO SCH ×2 (08:59→20:59)
[2019-04-22] MEDS: QUEtiapine 25mg tablet PO SCH (08:59)
[2019-04-22] MEDS: sertraline 50mg tablet PO SCH (08:59)
[2019-04-22] MEDS: lisinopril 2.5mg tablet PO SCH (09:00)
[2019-04-22] MEDS: heparin, porcine 5000 units/ml vial SQ SCH ×2 (09:01→20:59)
[2019-04-22] MEDS ORDERED: methylPREDNISolone sod succ 125mg/2ml vial IV ONE (09:35)
--- NOTE | 2019-04-22 09:37 | NUR ---
Called RT Lissa to bring full face mask for pt's bipap.
--- NOTE | 2019-04-22 09:41 | NUR ---
Messaged pharmacy for additional K IV replacement.
--- NOTE | 2019-04-22 09:49 | NUR ---
Rapid response paged. Dr. Solis paged.
[2019-04-22] MEDS ORDERED: thiamine inj. 100 MG in normal saline 100ml IV soln 100 ML IV ONE (09:50)
[2019-04-22] MEDS ORDERED: haloperidol 5mg tablet PO PRN (09:50)
[2019-04-22] MEDS ORDERED: LORazepam 2 mg/ml vial IV PRN (09:50)
[2019-04-22] MEDS ORDERED: haloperidol lactate 5mg/ml inj IM PRN (09:50)
[2019-04-22] MEDS ORDERED: ipratropium/albuterol 3ml nebule ONE (09:51)
[2019-04-22] MEDS ORDERED: vancomycin/NS 1 GM ADD-VANTAGE 250 ML IV ONE (09:59)
--- NOTE | 2019-04-22 10:05 | NUR ---
Pt transferred in bed to CICU room 2007.
[2019-04-22] MEDS ORDERED: albuterol 2.5 MG/3 ML nebule ONE (10:17)
[2019-04-22] MEDS: ipratropium/albuterol 3ml nebule NEB SCH ×7 (11:00→23:54)
[2019-04-22] MEDS ORDERED: etomidate 2mg/ml inj. ONE (12:00)
[2019-04-22] MEDS ORDERED: 0.9 % SODIUM CHLORIDE 10 ML VIAL ONE (12:00)
[2019-04-22] MEDS ORDERED: ipratropium/albuterol 3ml nebule NEB PRN (12:50)
[2019-04-22] MEDS ORDERED: midazolam 2 mg/2 ml injection IV ONE (12:50)
[2019-04-22] MEDS ORDERED: fentaNYL/PF 50MCG/1 ML 2ML syringe IV PRN (12:50)
[2019-04-22] MEDS ORDERED: midazolam 2 mg/2 ml injection ONE (13:01)
[2019-04-22] MEDS: midazolam 100mg in NS 100ml 100 ML IV PRN ×3 (13:59→23:35)
[2019-04-22] MEDS: azithromycin 250mg tablet PO SCH (14:00)
[2019-04-22] MEDS: FENTANYL-0.9 % NACL/PF 100 ML IV PRN ×2 (14:03→18:48)
[2019-04-22 14:16] LABS: ABG BASE EXCESS -9.5 mmol/L (-2.0-3.0); ABG HCO3 17.2 mmol/L (22.0-26.0); ABG OXYGEN SATURATION 95.5 % (95-98); ABG PCO2 (T) 40.6 mmHg (35.0-48.0); ABG PH (T) 7.246 (7.350-7.450); ABG PO2 (T) 98.2 mmHg (83-108); ALLEN'S TEST Positive; FCOHb 1.8 % (0.5-1.5); FO2Hb 93.8 % (94-100); MINUTE VOLUME 19 L/min; PEEP 10 cm H2O; RESPIRATORY RATE 20 b/min; RESPIRATORY RATE (OBSERVED) 27 b/min; TIDAL VOLUME 400 mL; TOTAL HEMOGLOBIN 15.4 G/dl (14.0-18.0)
[2019-04-22] MEDS: piperacillin/tazo 3.375gm/50ml 50 ML IV SCH ×2 (14:58→16:00)
[2019-04-22] MEDS ORDERED: CISatracurium **Bolus** 2 mg/ml inj IV PRN (15:55)
[2019-04-22] MEDS: methylPREDNISolone sod succ 125mg/2ml vial IV SCH ×2 (16:02→20:58)
[2019-04-22] MEDS ORDERED: CISatracurium besylate inj. 200 MG in normal saline 250ml IV soln 180 ML IV PRN (16:30)
[2019-04-22 18:03] LABS: MAGNESIUM 2.1 MG/DL (1.5-2.4)
[2019-04-22 18:08] LABS: POTASSIUM 6.7 MMOL/L (3.5-5.1)
[2019-04-22 20:37] LABS: POTASSIUM 7.7 MMOL/L (3.5-5.1)
[2019-04-22 20:50] LABS: ALANINE AMINOTRANSFERASE 66 U/L (12-78); ALBUMIN 2.9 G/DL (3.4-5.0); ALBUMIN/GLOBULIN RATIO 0.9 (1.1-1.5); ALKALINE PHOSPHATASE 129 IU/L (46-116); ANION GAP 8 (8-16); ASPARTATE AMINO TRANSFERASE 71 U/L (10-37); BILIRUBIN,TOTAL 2.5 MG/DL (0.1-1.0); BLOOD UREA NITROGEN 15 MG/DL (7-18); BUN/CREATININE RATIO 16.9 (5.4-32.0); CALCIUM 6.1 MG/DL (8.5-10.1); CHLORIDE 105 MMOL/L (99-107); CREATININE 0.89 MG/DL (0.60-1.10); GLUCOSE 176 MG/DL (70-104); SODIUM 134 MMOL/L (135-145); TOTAL CARBON DIOXIDE 21.3 MMOL/L (24-32); TOTAL PROTEIN 6.2 G/DL (6.4-8.2); eGFR > 90 ML/MIN
[2019-04-22] MEDS ORDERED: quetiapine 100mg tablet PO SCH (21:00)
[2019-04-22] MEDS ORDERED: mirtazapine 15mg tablet PO SCH (21:00)
[2019-04-22] MEDS ORDERED: sodium polystyrene sulfonate 15gm/60ml oral suspension PO ONE (21:10)
[2019-04-22] MEDS ORDERED: dextrose 50%-water 50ml dispensing syringe IV ONE (21:10)
[2019-04-22] MEDS ORDERED: insulin regular, human 10 units/0.1 ml syringe IV ONE (21:10)
[2019-04-22] MEDS ORDERED: calcium chloride 100 MG/1 ML inj IV ONE (21:10)
[2019-04-22] MEDS ORDERED: albuterol 2.5 MG/3 ML nebule CONTNEB ONE (21:10)
[2019-04-22] MEDS ORDERED: sodium bicarbonate (8.4%) 1 mEq/ml syringe IV ONE (21:15)
[2019-04-22] MEDS: vancomycin/NS 1 GM ADD-VANTAGE 250 ML IV SCH (21:41)
[2019-04-23] VITALS (24 sets, daily range): BP systolic 85–116; BP diastolic 56–89
[2019-04-23 00:09] LABS: ALBUMIN 2.7 G/DL (3.4-5.0); ANION GAP 5 (8-16); BLOOD UREA NITROGEN 18 MG/DL (7-18); BUN/CREATININE RATIO 18.8 (5.4-32.0); CALCIUM 7.1 MG/DL (8.5-10.1); CHLORIDE 106 MMOL/L (99-107); CREATININE 0.96 MG/DL (0.60-1.10); GLUCOSE 235 MG/DL (70-104); MAGNESIUM 2.3 MG/DL (1.5-2.4); PHOSPHORUS 5.6 MG/DL (2.3-4.5); SODIUM 135 MMOL/L (135-145); TOTAL CARBON DIOXIDE 23.8 MMOL/L (24-32); eGFR 85 ML/MIN
[2019-04-23 00:17] LABS: POTASSIUM 6.3 MMOL/L (3.5-5.1)
[2019-04-23] MEDS ORDERED: albuterol 2.5 MG/3 ML nebule CONTNEB ONE (00:20)
[2019-04-23] MEDS ORDERED: furosemide 20 MG/2 ML vial IV ONE (00:20)
[2019-04-23] MEDS ORDERED: dextrose 50%-water 50ml dispensing syringe IV ONE (00:20)
[2019-04-23] MEDS ORDERED: insulin regular, human 10 units/0.1 ml syringe IV ONE (00:20)
[2019-04-23] MEDS: FENTANYL-0.9 % NACL/PF 100 ML IV PRN ×4 (00:24→18:37)
[2019-04-23] MEDS: piperacillin/tazo 3.375gm/50ml 50 ML IV SCH ×4 (00:31→23:13)
[2019-04-23] MEDS: methylPREDNISolone sod succ 125mg/2ml vial IV SCH ×4 (02:15→20:26)
[2019-04-23] MEDS: ipratropium/albuterol 3ml nebule NEB SCH ×8 (03:00→23:29)
[2019-04-23 03:16] LABS: BASOPHILS % (AUTO) 0.1 % (0-1); EOSINOPHILS % (AUTO) 0.1 % (0-6); HEMATOCRIT 48.4 % (42.0-52.0); HEMOGLOBIN 15.9 g/dl (14.0-17.9); LYMPHOCYTES # (AUTO) 0.4 X10'3 (1.1-4.8); LYMPHOCYTES % (AUTO) 1.4 % (21-51); MEAN CORPUSCULAR HGB CONC 32.8 g/dL (33.0-36.5); MEAN CORPUSCULAR VOLUME 100.4 FL (78-98); MEAN PLATELET VOLUME 7.4 FL (7.4-10.4); MONOCYTES # (AUTO) 1.8 X10'3 (0-0.9); NEUTROPHILS # (AUTO) 27.8 X10'3 (1.8-7.7); NEUTROPHILS % (AUTO) 92.4 % (42-75); PLATELET COUNT 280 X10'3 (140-440); RED BLOOD COUNT 4.83 X10'6 (4.70-6.10); RED CELL DISTRIBUTION WIDTH 14.9 % (11.5-14.5)
[2019-04-23 03:19] LABS: WHITE BLOOD COUNT 30.1 X10'3 (4.5-11.0)
[2019-04-23 03:24] LABS: ALANINE AMINOTRANSFERASE 90 U/L (12-78); ALBUMIN 2.7 G/DL (3.4-5.0); ALBUMIN/GLOBULIN RATIO 0.8 (1.1-1.5); ALKALINE PHOSPHATASE 111 IU/L (46-116); ANION GAP 6 (8-16); ASPARTATE AMINO TRANSFERASE 113 U/L (10-37); BILIRUBIN,TOTAL 0.7 MG/DL (0.1-1.0); BLOOD UREA NITROGEN 19 MG/DL (7-18); CALCIUM 7.3 MG/DL (8.5-10.1); CHLORIDE 106 MMOL/L (99-107); GLUCOSE 204 MG/DL (70-104); MAGNESIUM 2.3 MG/DL (1.5-2.4); PHOSPHORUS 5.9 MG/DL (2.3-4.5); SODIUM 137 MMOL/L (135-145); TOTAL CARBON DIOXIDE 25.1 MMOL/L (24-32); eGFR 82 ML/MIN
[2019-04-23 03:31] LABS: POTASSIUM 6.2 MMOL/L (3.5-5.1)
[2019-04-23] MEDS: normal saline 1000ml 1,000 ML IV SCH ×3 (03:46→20:35)
[2019-04-23 03:47] LABS: PLATELET ESTIMATE NORMAL; TOTAL CELLS COUNTED 100
[2019-04-23 03:48] LABS: TOXIC VACUOLATION 1+
[2019-04-23 04:10] LABS: ABG BASE EXCESS -10.6 mmol/L (-2.0-3.0); ABG HCO3 22.1 mmol/L (22.0-26.0); ABG OXYGEN SATURATION 96.5 % (95-98); ABG PCO2 (T) 79.1 mmHg (35.0-48.0); ABG PH (T) 7.059 (7.350-7.450); ABG PO2 (T) 115.3 mmHg (83-108); ALLEN'S TEST Positive; FCOHb 1.5 % (0.5-1.5); FMetHb 0.3 % (0.3-1.12); FO2Hb 94.8 % (94-100); MINUTE VOLUME 9 L/min; PATIENT TEMPERATURE 36.2; PEEP 10 cm H2O; RESPIRATORY RATE 20 b/min; RESPIRATORY RATE (OBSERVED) 20 b/min; TIDAL VOLUME 400 mL; TOTAL HEMOGLOBIN 16.9 G/dl (14.0-18.0)
[2019-04-23 05:05] LABS: ABG BASE EXCESS -8.8 mmol/L (-2.0-3.0); ABG HCO3 21.2 mmol/L (22.0-26.0); ABG OXYGEN SATURATION 95.6 % (95-98); ABG PCO2 (T) 60.4 mmHg (35.0-48.0); ABG PH (T) 7.158 (7.350-7.450); ABG PO2 (T) 93.7 mmHg (83-108); ALLEN'S TEST Positive; FCOHb 1.8 % (0.5-1.5); FMetHb 0.2 % (0.3-1.12); FO2Hb 93.7 % (94-100); MINUTE VOLUME 10 L/min; PATIENT TEMPERATURE 36.2; PEEP 10 cm H2O; RESPIRATORY RATE 24 b/min; RESPIRATORY RATE (OBSERVED) 24 b/min; TIDAL VOLUME 400 mL; TOTAL HEMOGLOBIN 16.5 G/dl (14.0-18.0)
--- NOTE | 2019-04-23 06:30 | NUR ---
Patient in room CICU 2007. I have received report from davina tripp rn and had the opportunity to ask questions and assume patient care.
[2019-04-23 07:36] LABS: ALBUMIN 2.6 G/DL (3.4-5.0); ANION GAP 6 (8-16); BLOOD UREA NITROGEN 18 MG/DL (7-18); BUN/CREATININE RATIO 18.9 (5.4-32.0); CALCIUM 7.6 MG/DL (8.5-10.1); CHLORIDE 107 MMOL/L (99-107); CREATININE 0.95 MG/DL (0.60-1.10); GLUCOSE 165 MG/DL (70-104); SODIUM 136 MMOL/L (135-145); TOTAL CARBON DIOXIDE 22.6 MMOL/L (24-32); eGFR 87 ML/MIN
[2019-04-23 07:43] LABS: POTASSIUM 6.2 MMOL/L (3.5-5.1)
[2019-04-23] MEDS: midazolam 100mg in NS 100ml 100 ML IV PRN ×2 (07:43→17:20)
[2019-04-23] MEDS: lactobacillus rhamnosus 10,000 MMU CELLS/CAPSULE PO SCH ×2 (07:44→20:27)
[2019-04-23] MEDS: QUEtiapine 25mg tablet PO SCH (07:45)
[2019-04-23] MEDS: aspirin 81mg tablet.DR PO SCH (07:45)
[2019-04-23] MEDS: sertraline 50mg tablet PO SCH (07:45)
[2019-04-23] MEDS: pantoprazole 40mg Tablet.DR PO SCH (07:45)
[2019-04-23] MEDS: azithromycin 250mg tablet PO SCH (07:46)
[2019-04-23] MEDS: heparin, porcine 5000 units/ml vial SQ SCH ×2 (07:52→20:27)
[2019-04-23 08:00] LABS: ABG BASE EXCESS -6.4 mmol/L (-2.0-3.0); ABG HCO3 21.4 mmol/L (22.0-26.0); ABG OXYGEN SATURATION 96.7 % (95-98); ABG PO2 (T) 97.4 mmHg (83-108); ALLEN'S TEST Positive; FCOHb 1.7 % (0.5-1.5); FMetHb 0.2 % (0.3-1.12); FO2Hb 94.9 % (94-100); MINUTE VOLUME 12 L/min; PEEP 10 cm H2O; RESPIRATORY RATE 24 b/min; RESPIRATORY RATE (OBSERVED) 24 b/min; TIDAL VOLUME 450 mL; TOTAL HEMOGLOBIN 15.8 G/dl (14.0-18.0)
[2019-04-23] MEDS ORDERED: folic acid 1mg tablet PO SCH (08:00)
[2019-04-23] MEDS ORDERED: thiamine 100mg tablet PO SCH (08:00)
[2019-04-23] MEDS ORDERED: multivitamins, therapeutics tablet PO SCH (08:00)
[2019-04-23] MEDS: lisinopril 2.5mg tablet PO SCH (08:00)
[2019-04-23] MEDS: carVEDilol 3.125mg tablet PO SCH (09:00)
--- NOTE | 2019-04-23 09:00 | NUR ---
dr zambrano notified of potassium level
[2019-04-23] MEDS: vancomycin/NS 1 GM ADD-VANTAGE 250 ML IV SCH ×2 (10:31→21:59)
[2019-04-23] MEDS ORDERED: dextrose ORAL solution 15 GM/59 ML bottle PO PRN ×2 (12:15)
[2019-04-23] MEDS ORDERED: glucagon, human recombinant 1mg kit SUBCUT PRN (12:15)
[2019-04-23] MEDS ORDERED: insulin Lispro (HumaLOG) vial - multi-dose SQ SCH (12:15)
[2019-04-23] MEDS ORDERED: MESSAGE TO PHARMACY PO ONE (12:15)
[2019-04-23] MEDS ORDERED: insulin regular, human vial - multi-dose SQ SCH (12:15)
[2019-04-23] MEDS ORDERED: dextrose 50%-water 50ml dispensing syringe IV PRN ×2 (12:15)
[2019-04-23] MEDS: mineral oil/petrolatum ophthal oint EACHEYE SCH ×2 (13:05→20:28)
[2019-04-23] MEDS ORDERED: acetaminophen 325mg tablet OGT PRN (15:13)
[2019-04-23] MEDS ORDERED: dextrose ORAL solution 15 GM/59 ML bottle OGT PRN ×2 (15:16→15:30)
--- NOTE | 2019-04-23 18:30 | NUR ---
Patient in room CICU 2008. I have received report from AUSTIN Conrad and had the opportunity to ask questions and assume patient care.
[2019-04-23 18:48] LABS: URINE AMPHETAMINE SCREEN NEGATIVE (Neg); URINE BARBITUATE SCREEN NEGATIVE (Neg); URINE BENZODIAZEPINES SCREEN POSITIVE (Neg); URINE CANNABINOID SCREEN POSITIVE (Neg); URINE COCAINE SCREEN NEGATIVE (Neg); URINE METHADONE SCREEN NEGATIVE (Neg); URINE OPIATE SCREEN NEGATIVE (Neg); URINE PHENCYCLIDINE SCREEN NEGATIVE (Neg)
[2019-04-23 19:21] LABS: ABG BASE EXCESS -0.4 mmol/L (-2.0-3.0); ABG HCO3 23.9 mmol/L (22.0-26.0); ABG OXYGEN SATURATION 95.8 % (95-98); ABG PCO2 (T) 37.6 mmHg (35.0-48.0); ABG PH (T) 7.419 (7.350-7.450); ALLEN'S TEST Positive; FCOHb 1.6 % (0.5-1.5); FMetHb 0.1 % (0.3-1.12); FO2Hb 94.2 % (94-100); MINUTE VOLUME 12 L/min; PATIENT TEMPERATURE 36.7; PEEP 10 cm H2O; RESPIRATORY RATE 24 b/min; TIDAL VOLUME 515 mL; TOTAL HEMOGLOBIN 13.3 G/dl (14.0-18.0)
[2019-04-23] MEDS: quetiapine 100mg tablet OGT SCH (20:27)
[2019-04-23] MEDS: insulin glargine (Lantus) pen - multi-dose SQ SCH (20:28)
[2019-04-23] MEDS: mirtazapine 15mg tablet OGT SCH (20:28)
[2019-04-23] MEDS: carVEDilol 3.125mg tablet OGT SCH (20:28)
[2019-04-23] MEDS ORDERED: VANCOMYCIN LEVEL IV ONE (21:30)
[2019-04-24] VITALS (23 sets, daily range): BP systolic 97–129; BP diastolic 63–94
[2019-04-24] MEDS: methylPREDNISolone sod succ 125mg/2ml vial IV SCH ×4 (02:46→20:59)
[2019-04-24] MEDS: mineral oil/petrolatum ophthal oint EACHEYE SCH ×4 (02:47→20:00)
[2019-04-24] MEDS: midazolam 100mg in NS 100ml 100 ML IV PRN ×2 (02:47→21:22)
[2019-04-24] MEDS: FENTANYL-0.9 % NACL/PF 100 ML IV PRN ×2 (03:10→15:59)
[2019-04-24] MEDS: ipratropium/albuterol 3ml nebule NEB SCH ×5 (04:01→20:43)
[2019-04-24 04:21] LABS: ABG BASE EXCESS 3.1 mmol/L (-2.0-3.0); ABG HCO3 26.9 mmol/L (22.0-26.0); ABG PCO2 (T) 37.1 mmHg (35.0-48.0); ABG PH (T) 7.476 (7.350-7.450); ABG PO2 (T) 94.8 mmHg (83-108); ALLEN'S TEST Positive; FCOHb 1.4 % (0.5-1.5); FMetHb 0.3 % (0.3-1.12); FO2Hb 95.4 % (94-100); MINUTE VOLUME 12 L/min; PATIENT TEMPERATURE 36.3; PEEP 10 cm H2O; RESPIRATORY RATE 24 b/min; RESPIRATORY RATE (OBSERVED) 24 b/min; TIDAL VOLUME 504 mL; TOTAL HEMOGLOBIN 12.7 G/dl (14.0-18.0)
[2019-04-24 05:41] LABS: BASOPHILS % (AUTO) 0 % (0-1); EOSINOPHILS % (AUTO) 0 % (0-6); HEMATOCRIT 38.2 % (42.0-52.0); HEMOGLOBIN 12.6 g/dl (14.0-17.9); LYMPHOCYTES # (AUTO) 0.4 X10'3 (1.1-4.8); LYMPHOCYTES % (AUTO) 3.7 % (21-51); MEAN CORPUSCULAR HEMOGLOBIN 33.1 PG (27.0-31.0); MEAN CORPUSCULAR HGB CONC 33.1 g/dL (33.0-36.5); MEAN CORPUSCULAR VOLUME 99.9 FL (78-98); MEAN PLATELET VOLUME 7.7 FL (7.4-10.4); MONOCYTES # (AUTO) 0.6 X10'3 (0-0.9); MONOCYTES % (AUTO) 5.6 % (2-12); NEUTROPHILS # (AUTO) 10.3 X10'3 (1.8-7.7); NEUTROPHILS % (AUTO) 90.7 % (42-75); PLATELET COUNT 173 X10'3 (140-440); RED BLOOD COUNT 3.82 X10'6 (4.70-6.10); RED CELL DISTRIBUTION WIDTH 14.6 % (11.5-14.5); WHITE BLOOD COUNT 11.4 X10'3 (4.5-11.0)
[2019-04-24 06:00] LABS: ALANINE AMINOTRANSFERASE 84 U/L (12-78); ALBUMIN 2.2 G/DL (3.4-5.0); ALBUMIN/GLOBULIN RATIO 0.8 (1.1-1.5); ALKALINE PHOSPHATASE 71 IU/L (46-116); ANION GAP 7 (8-16); ASPARTATE AMINO TRANSFERASE 59 U/L (10-37); BILIRUBIN,TOTAL 1.1 MG/DL (0.1-1.0); BLOOD UREA NITROGEN 10 MG/DL (7-18); BUN/CREATININE RATIO 12.3 (5.4-32.0); CALCIUM 7.5 MG/DL (8.5-10.1); CHLORIDE 105 MMOL/L (99-107); CREATININE 0.81 MG/DL (0.60-1.10); GLUCOSE 134 MG/DL (70-104); MAGNESIUM 1.9 MG/DL (1.5-2.4); PHOSPHORUS 2.1 MG/DL (2.3-4.5); POTASSIUM 4.2 MMOL/L (3.5-5.1); SODIUM 139 MMOL/L (135-145); TOTAL CARBON DIOXIDE 27.5 MMOL/L (24-32); TOTAL PROTEIN 5.1 G/DL (6.4-8.2); eGFR > 90 ML/MIN
--- NOTE | 2019-04-24 06:15 | NUR ---
Problems reprioritized. Patient report given, questions answered & plan of care reviewed with AUSTIN Conrad.
--- NOTE | 2019-04-24 06:30 | NUR ---
Patient in room CICU 2007. I have received report from ed teacher RN and had the opportunity to ask questions and assume patient care.
[2019-04-24] MEDS: normal saline 1000ml 1,000 ML IV SCH ×2 (07:49→21:01)
[2019-04-24] MEDS ORDERED: AZITHROMYCIN 500 MG in NS 250ml IV.SOLN IV SCH (08:00)
[2019-04-24] MEDS: lisinopril 2.5mg tablet OGT SCH ×4 (08:00→17:06)
[2019-04-24] MEDS: aspirin 81mg tab.chew OGT SCH (09:19)
[2019-04-24] MEDS: sertraline 50mg tablet OGT SCH (09:20)
[2019-04-24] MEDS: carVEDilol 3.125mg tablet OGT SCH ×2 (09:21→20:59)
[2019-04-24] MEDS: QUEtiapine 25mg tablet OGT SCH (09:21)
[2019-04-24] MEDS: thiamine 100mg tablet OGT SCH (09:21)
[2019-04-24] MEDS: folic acid 1mg tablet OGT SCH (09:22)
[2019-04-24] MEDS: lansoprazole 15mg solutab OGT SCH (09:22)
[2019-04-24] MEDS: lactobacillus rhamnosus 10,000 MMU CELLS/CAPSULE PO SCH ×2 (09:22→20:59)
[2019-04-24] MEDS: multivitamin oral liquid (Certavite) 5ml cup OGT SCH (09:23)
[2019-04-24] MEDS: piperacillin/tazo 3.375gm/50ml 50 ML IV SCH ×2 (09:23→16:42)
[2019-04-24] MEDS: azithromycin 200mg/5ml oral suspension 15ml bottle OGT SCH (09:23)
[2019-04-24] MEDS: heparin, porcine 5000 units/ml vial SQ SCH ×2 (09:24→21:00)
[2019-04-24] MEDS ORDERED: LORazepam 1 MG tablet OGT PRN (09:50)
[2019-04-24] MEDS ORDERED: LORazepam 2 mg/ml vial IV PRN (09:50)
[2019-04-24] MEDS ORDERED: ipratropium/albuterol 3ml nebule NEB PRN (11:40)
[2019-04-24] MEDS ORDERED: racepinephrine 11.25mg/0.5ml nebule NEB PRN (11:40)
--- NOTE | 2019-04-24 11:40 | NUR ---
Patient is intubated and sedated d/t respiratory failure. Admitted with pulmonary fibrosis, emphysema, pneumonia, current EtOH abuse h/o EtOH withdrawal seizures, cardiomyopathy, smoker, bipolar, depression. Pt has increased protein needs d/t intubation and EtOH history, likely poor intake at home r/t alcoholism and evidenced by lower end of normal BMI. Recommend: 1. IF TF recommend continuous TF with Vital AF at 65 ml/hr to provide total volume 1560 ml, 1872 cals, 117 gm protein, and 1265 ml water. 2. IF TF recommend additional water flush 200 ml q 4 hours 3. IF above, prealbumin q Saturday and , daily wts 4. When extubated, advance diet as medically indicated to regular Addendum: 04/24/19 at [address] Amended: Links added.
--- NOTE | 2019-04-24 14:00 | NUR ---
Dr. Park updated regarding pt.'s successful progress on CPAP for about 3 hours. Later on after turning, pt. desaturated to 77%, fio2 increased took 5 minutes for pt. to recover spo2 >90%. Suctioned and lavaged for large, thick amounts of frederick secretions. Per Dr. Park, hold on extubation and reassess tomorrow.
--- NOTE | 2019-04-24 18:00 | NUR ---
Problems reprioritized. Patient report given, questions answered & plan of care reviewed with Jose AVILA.
[2019-04-24] MEDS: insulin glargine (Lantus) pen - multi-dose SQ SCH (21:00)
[2019-04-24] MEDS: mirtazapine 15mg tablet OGT SCH (21:01)
[2019-04-24] MEDS: quetiapine 100mg tablet OGT SCH (21:01)
[2019-04-25] VITALS (24 sets, daily range): BP systolic 89–132; BP diastolic 54–93
[2019-04-25] MEDS: piperacillin/tazo 3.375gm/50ml 50 ML IV SCH ×2 (00:33→07:55)
[2019-04-25] MEDS: mineral oil/petrolatum ophthal oint EACHEYE SCH ×4 (02:00→20:29)
[2019-04-25] MEDS: midazolam 100mg in NS 100ml 100 ML IV PRN ×3 (02:40→21:11)
[2019-04-25] MEDS: methylPREDNISolone sod succ 125mg/2ml vial IV SCH ×4 (02:40→20:33)
[2019-04-25] MEDS: ipratropium/albuterol 3ml nebule NEB SCH ×4 (02:54→20:52)
[2019-04-25 03:36] LABS: ABG BASE EXCESS 1.4 mmol/L (-2.0-3.0); ABG HCO3 25.9 mmol/L (22.0-26.0); ABG OXYGEN SATURATION 91.5 % (95-98); ABG PCO2 (T) 38.8 mmHg (35.0-48.0); ABG PH (T) 7.438 (7.350-7.450); ABG PO2 (T) 61.4 mmHg (83-108); ALLEN'S TEST Positive; FCOHb 1.1 % (0.5-1.5); FMetHb 0.3 % (0.3-1.12); FO2Hb 90.2 % (94-100); MINUTE VOLUME 13 L/min; PEEP 7 cm H2O; RESPIRATORY RATE 22 b/min; RESPIRATORY RATE (OBSERVED) 25 b/min; TOTAL HEMOGLOBIN 13.2 G/dl (14.0-18.0)
[2019-04-25] MEDS: FENTANYL-0.9 % NACL/PF 100 ML IV PRN ×2 (05:16→14:31)
[2019-04-25 06:06] LABS: BASOPHILS % (AUTO) 0 % (0-1); EOSINOPHILS % (AUTO) 0 % (0-6); HEMATOCRIT 38.4 % (42.0-52.0); HEMOGLOBIN 12.8 g/dl (14.0-17.9); LYMPHOCYTES # (AUTO) 0.3 X10'3 (1.1-4.8); LYMPHOCYTES % (AUTO) 2.5 % (21-51); MEAN CORPUSCULAR HEMOGLOBIN 33.1 PG (27.0-31.0); MEAN CORPUSCULAR HGB CONC 33.3 g/dL (33.0-36.5); MEAN CORPUSCULAR VOLUME 99.3 FL (78-98); MEAN PLATELET VOLUME 7.6 FL (7.4-10.4); MONOCYTES # (AUTO) 0.5 X10'3 (0-0.9); MONOCYTES % (AUTO) 4.8 % (2-12); NEUTROPHILS # (AUTO) 10.3 X10'3 (1.8-7.7); NEUTROPHILS % (AUTO) 92.7 % (42-75); PLATELET COUNT 194 X10'3 (140-440); RED BLOOD COUNT 3.87 X10'6 (4.70-6.10); RED CELL DISTRIBUTION WIDTH 14.4 % (11.5-14.5); WHITE BLOOD COUNT 11.1 X10'3 (4.5-11.0)
[2019-04-25 06:15] LABS: ALANINE AMINOTRANSFERASE 61 U/L (12-78); ALBUMIN 2.2 G/DL (3.4-5.0); ALBUMIN/GLOBULIN RATIO 0.7 (1.1-1.5); ALKALINE PHOSPHATASE 67 IU/L (46-116); ANION GAP 6 (8-16); ASPARTATE AMINO TRANSFERASE 27 U/L (10-37); BILIRUBIN,TOTAL 0.9 MG/DL (0.1-1.0); BLOOD UREA NITROGEN 16 MG/DL (7-18); CHLORIDE 106 MMOL/L (99-107); GLUCOSE 140 MG/DL (70-104); MAGNESIUM 1.6 MG/DL (1.5-2.4); PHOSPHORUS 2.3 MG/DL (2.3-4.5); POTASSIUM 3.5 MMOL/L (3.5-5.1); SODIUM 138 MMOL/L (135-145); TOTAL CARBON DIOXIDE 26.3 MMOL/L (24-32); TOTAL PROTEIN 5.2 G/DL (6.4-8.2); eGFR > 90 ML/MIN
--- NOTE | 2019-04-25 06:30 | NUR ---
Patient in room CICU 2008. I have received report from Jose and had the opportunity to ask questions and assume patient care.
[2019-04-25] MEDS: lactobacillus rhamnosus 10,000 MMU CELLS/CAPSULE PO SCH ×2 (07:29→20:28)
[2019-04-25] MEDS: thiamine 100mg tablet OGT SCH (07:29)
[2019-04-25] MEDS: azithromycin 200mg/5ml oral suspension 15ml bottle OGT SCH (07:30)
[2019-04-25] MEDS: multivitamin oral liquid (Certavite) 5ml cup OGT SCH (07:30)
[2019-04-25] MEDS: sertraline 50mg tablet OGT SCH (07:30)
[2019-04-25] MEDS: folic acid 1mg tablet OGT SCH (07:34)
[2019-04-25] MEDS: aspirin 81mg tab.chew OGT SCH (07:35)
[2019-04-25] MEDS: quetiapine 100mg tablet OGT SCH ×2 (07:35→21:00)
[2019-04-25] MEDS: carVEDilol 3.125mg tablet OGT SCH ×2 (07:46→20:31)
[2019-04-25] MEDS: lisinopril 2.5mg tablet OGT SCH (07:46)
[2019-04-25] MEDS: heparin, porcine 5000 units/ml vial SQ SCH ×2 (07:47→20:34)
[2019-04-25] MEDS: lansoprazole 15mg solutab OGT SCH (09:05)
[2019-04-25] MEDS: QUEtiapine 25mg tablet OGT SCH (09:05)
[2019-04-25] MEDS: normal saline 1000ml 1,000 ML IV SCH ×2 (11:05→19:02)
[2019-04-25] MEDS: CefTRIAXone/D5W-Rocephin 1gm 50 ML IV SCH (11:15)
--- NOTE | 2019-04-25 15:32 | NUR ---
Vomited approximately 75cc
[2019-04-25] MEDS: docusate sodium 100mg/10ml UD cup OGT SCH (20:28)
[2019-04-25] MEDS: mirtazapine 15mg tablet OGT SCH (20:31)
[2019-04-25] MEDS: insulin glargine (Lantus) pen - multi-dose SQ SCH (21:00)
--- NOTE | 2019-04-25 21:20 | NUR ---
CALL TO KIMBERLY AVALOS WITH CONCERNS REGARDING THIS PATIENTS LACK OF SEDATION AND ABILITY TO REACH FOR ETT WITH RESTRAINTS PROPERLY IN PLACE. PATIENT IS NEAR MAX OF VERSED GTT. PAIN IS CONTROLLED ON 100 UG/HR FENTANYL. PATIENT IS FULLY AWAKE, WATCHES TV WITH GLASSES ON, RESTLESS, REACHES FOR TUBE. EXTENSIVE TALK WITH PATIENT REGARDING THE NEED TO KEEP ETT IN PLACE. MULTIPLE CLOSE CALLS WITH HAND REACHING TO ETT IN SPITE OF RESTRAINTS BEING PROPERLY PLACED/MONITORED AND FULL DISCUSSION OF BENEFITS OFF ETT PLACEMENT. I REQUESTED A DIFFERENT SEDATION METHOD. PRECEDEX ORDERED. WATER WINGS ALSO ADDED TO LUKE EXTREMITIES ALONG WITH RESTRAINTS FOR SAFETY PURPOSES. MONITORING PATIENT CLOSELY UNTIL PRECEDEX ARRIVES FROM PHARMACY
[2019-04-25] MEDS ORDERED: VANCOMYCIN LEVEL IV ONE (21:30)
[2019-04-25] MEDS: dexmedetomidin/NS 400mcg/100ml 100 ML IV SCH (21:40)
--- NOTE | 2019-04-25 22:19 | NUR ---
PRECEDEX INFUSING PER ORDER. DRY WEIGHT FOR PATIENT ON ADMIT TO ICU 04/22/2019 WAS 63.6 KG. PRECEDEX STARTED AT 0.4 UG/KG/HR PER ORDER. VERSED AND FENTANYL ALSO INFUSING. WILL TITRATE APPROPRIATE PRECEDEX TAKES EFFECT. WILL CONTINUE TO MONITOR RESTRAINTS PER PROTOCOL FOR SOFT WRIST WELL WATER WINGS/FREEDOM SPLINTS. ALL PROCEDURES EXPLAINED PRIOR TO PERFORMING. REORIENTED AND REASSURANCE GIVEN.
[2019-04-26] VITALS (24 sets, daily range): BP systolic 100–155; BP diastolic 69–90
[2019-04-26] MEDS: FENTANYL-0.9 % NACL/PF 100 ML IV PRN ×3 (01:48→23:01)
[2019-04-26] MEDS: mineral oil/petrolatum ophthal oint EACHEYE SCH ×4 (02:00→20:12)
[2019-04-26] MEDS: methylPREDNISolone sod succ 125mg/2ml vial IV SCH ×4 (02:54→20:12)
[2019-04-26] MEDS: normal saline 1000ml 1,000 ML IV SCH (02:56)
[2019-04-26] MEDS: ipratropium/albuterol 3ml nebule NEB SCH ×4 (02:59→20:54)
[2019-04-26] MEDS: midazolam 100mg in NS 100ml 100 ML IV PRN ×2 (03:03→17:47)
[2019-04-26 04:00] LABS: ABG BASE EXCESS 2.5 mmol/L (-2.0-3.0); ABG OXYGEN SATURATION 91.9 % (95-98); ABG PCO2 (T) 36.2 mmHg (35.0-48.0); ABG PH (T) 7.473 (7.350-7.450); ABG PO2 (T) 63.7 mmHg (83-108); ALLEN'S TEST Positive; FCOHb 1.3 % (0.5-1.5); FO2Hb 90.7 % (94-100); MINUTE VOLUME 13 L/min; PATIENT TEMPERATURE 36.6; PEEP 7 cm H2O; RESPIRATORY RATE 22 b/min; RESPIRATORY RATE (OBSERVED) 25 b/min; TOTAL HEMOGLOBIN 13.9 G/dl (14.0-18.0)
[2019-04-26] MEDS: dexmedetomidin/NS 400mcg/100ml 100 ML IV SCH ×3 (05:07→20:06)
[2019-04-26 05:14] LABS: BASOPHILS % (AUTO) 0.1 % (0-1); EOSINOPHILS % (AUTO) 0 % (0-6); HEMATOCRIT 40.4 % (42.0-52.0); HEMOGLOBIN 13.5 g/dl (14.0-17.9); LYMPHOCYTES # (AUTO) 0.6 X10'3 (1.1-4.8); LYMPHOCYTES % (AUTO) 7.6 % (21-51); MEAN CORPUSCULAR HEMOGLOBIN 33.1 PG (27.0-31.0); MEAN CORPUSCULAR HGB CONC 33.3 g/dL (33.0-36.5); MEAN CORPUSCULAR VOLUME 99.3 FL (78-98); MEAN PLATELET VOLUME 7.6 FL (7.4-10.4); MONOCYTES # (AUTO) 0.6 X10'3 (0-0.9); MONOCYTES % (AUTO) 7.6 % (2-12); NEUTROPHILS # (AUTO) 6.2 X10'3 (1.8-7.7); NEUTROPHILS % (AUTO) 84.7 % (42-75); PLATELET COUNT 198 X10'3 (140-440); RED BLOOD COUNT 4.07 X10'6 (4.70-6.10); RED CELL DISTRIBUTION WIDTH 14.6 % (11.5-14.5); WHITE BLOOD COUNT 7.3 X10'3 (4.5-11.0)
[2019-04-26 05:30] LABS: ALANINE AMINOTRANSFERASE 50 U/L (12-78); ALBUMIN 2.3 G/DL (3.4-5.0); ALBUMIN/GLOBULIN RATIO 0.8 (1.1-1.5); ALKALINE PHOSPHATASE 57 IU/L (46-116); ANION GAP 7 (8-16); ASPARTATE AMINO TRANSFERASE 15 U/L (10-37); BILIRUBIN,TOTAL 0.5 MG/DL (0.1-1.0); BLOOD UREA NITROGEN 20 MG/DL (7-18); BUN/CREATININE RATIO 35.7 (5.4-32.0); CALCIUM 7.5 MG/DL (8.5-10.1); CHLORIDE 105 MMOL/L (99-107); CREATININE 0.56 MG/DL (0.60-1.10); GLUCOSE 150 MG/DL (70-104); MAGNESIUM 1.7 MG/DL (1.5-2.4); PHOSPHORUS 2.9 MG/DL (2.3-4.5); POTASSIUM 3.9 MMOL/L (3.5-5.1); SODIUM 136 MMOL/L (135-145); TOTAL PROTEIN 5.2 G/DL (6.4-8.2); eGFR > 90 ML/MIN
[2019-04-26] MEDS: lisinopril 2.5mg tablet OGT SCH (07:29)
[2019-04-26] MEDS: carVEDilol 3.125mg tablet OGT SCH ×2 (07:30→20:00)
[2019-04-26] MEDS: lactobacillus rhamnosus 10,000 MMU CELLS/CAPSULE PO SCH ×2 (07:31→20:12)
[2019-04-26] MEDS: sertraline 50mg tablet OGT SCH (07:31)
[2019-04-26] MEDS: thiamine 100mg tablet OGT SCH (07:31)
[2019-04-26] MEDS: aspirin 81mg tab.chew OGT SCH (07:32)
[2019-04-26] MEDS: lansoprazole 15mg solutab OGT SCH (07:32)
[2019-04-26] MEDS: folic acid 1mg tablet OGT SCH (07:32)
[2019-04-26] MEDS: QUEtiapine 25mg tablet OGT SCH (07:34)
[2019-04-26] MEDS: CefTRIAXone/D5W-Rocephin 1gm 50 ML IV SCH (07:43)
[2019-04-26] MEDS: heparin, porcine 5000 units/ml vial SQ SCH ×2 (08:40→20:12)
[2019-04-26] MEDS: docusate sodium 100mg/10ml UD cup OGT SCH ×2 (08:40→20:12)
[2019-04-26] MEDS: multivitamin oral liquid (Certavite) 5ml cup OGT SCH (08:41)
[2019-04-26] MEDS ORDERED: LORazepam 2 mg/ml vial IV PRN (09:50)
[2019-04-26] MEDS ORDERED: LORazepam 1 MG tablet OGT PRN (09:50)
--- NOTE | 2019-04-26 11:08 | NUR ---
Reassessment: Pt remains intubated and tolerating TF at goal with low GRV 3-70 mL and no signs of refeeding. Wt remains stable. LBM 04/21, routine Colace just added to med list. Will continue to follow. Recommend: 1. Continuous TF with Vital AF at 65 ml/hr to provide total volume 1560 ml, 1872 cals, 117 gm protein, and 1265 ml water. 2. Additional water flush 200 ml q 4 hours 3. Prealbumin q Saturday and , daily wts 4. When extubated, advance diet as medically indicated to regular 5. Continue Thiamine, Folic acid, MVI given Etoh hx 6. Routine bowel care Addendum: 04/26/19 at [address] Amended: Links added.
--- NOTE | 2019-04-26 17:42 | NUR ---
pT. FIO2 DOWN TO 40%, no desaturation in spo2. Per Dr. Park, no sedation vacation and keep pt. on sedation.
--- NOTE | 2019-04-26 18:36 | NUR ---
Problems reprioritized. Patient report given, questions answered & plan of care reviewed with Jose AVILA.
[2019-04-26] MEDS: mirtazapine 15mg tablet OGT SCH (20:40)
[2019-04-26] MEDS: quetiapine 100mg tablet OGT SCH (20:40)
[2019-04-26] MEDS: insulin glargine (Lantus) pen - multi-dose SQ SCH (20:41)
--- NOTE | 2019-04-26 20:47 | NUR ---
patient wakes up violently from sedated state. monitored closely as patient curls himself up to near sitting up in bed position during these startling moments. easily reoriented and calmed back to resting position and rests comfortably within minutes. restrained for safety and freedom splints in place also for safety. Currently patient denies pain with fentanyl gtt at 125 ug/hr. Precedex 1.4 ug/kg/hr based on 63.6 kg dry weight. Versed 15 mg/hr. bradycardic mid 50's. coreg dose held. after patient startled awake, sats to 85 % on 40 % FiO2. Suxned for small thin secretions and allowed to recover. Sats maintained at 85-86 %. I changed to new sat probe - similar results with good wave form and correlation with HR. 100 % sxn brings sats back to 98 % however when FiO2 back to 40% - sats back to 85 %. increased FiO2 to 45 % then to 50 % to maintain sats 88-93 % per order. RT was updated. this even occured from 20:20 to 20:45 pm
[2019-04-27] VITALS (24 sets, daily range): BP systolic 111–148; BP diastolic 63–100
[2019-04-27] MEDS: midazolam 100mg in NS 100ml 100 ML IV PRN ×4 (00:40→23:23)
[2019-04-27] MEDS: dexmedetomidin/NS 400mcg/100ml 100 ML IV SCH ×5 (01:11→22:45)
[2019-04-27] MEDS: mineral oil/petrolatum ophthal oint EACHEYE SCH ×4 (02:00→19:42)
[2019-04-27] MEDS: methylPREDNISolone sod succ 125mg/2ml vial IV SCH ×4 (02:31→19:42)
[2019-04-27] MEDS: ipratropium/albuterol 3ml nebule NEB SCH ×4 (02:37→20:50)
[2019-04-27 02:55] LABS: ABG BASE EXCESS 1.3 mmol/L (-2.0-3.0); ABG HCO3 25.4 mmol/L (22.0-26.0); ABG OXYGEN SATURATION 87.9 % (95-98); ABG PCO2 (T) 37.9 mmHg (35.0-48.0); ABG PH (T) 7.442 (7.350-7.450); ABG PO2 (T) 56.1 mmHg (83-108); ALLEN'S TEST Positive; FMetHb 0.3 % (0.3-1.12); FO2Hb 86.8 % (94-100); MINUTE VOLUME 11 L/min; PATIENT TEMPERATURE 36.5; PEEP 7 cm H2O; RESPIRATORY RATE 22 b/min; RESPIRATORY RATE (OBSERVED) 24 b/min; TOTAL HEMOGLOBIN 14.3 G/dl (14.0-18.0)
--- NOTE | 2019-04-27 03:46 | NUR ---
Patient sedation adequate but close monitoring as patient will suddenly awaken and sit up in bed. Wakes startled and confused. Restraints on for safety per protocol per order as well as freedom splints. 2 B/L upper arms PIV's discontinued. New # 18 gu placed right forearm with IVF infusing. New S.L. # 20 gu to left forearm. Patient FiO2 was increased to 55 % due to PaO2 was 56.1 on 50 % FiO2. At this time, I am also noticing patient is nt getting the same volumes as he was getting when shift started. Beginning of shift, TV were 550-low 600's. Currently TV mid 400-low 500. Currently laying on right side/ left lung up. Will continue to monitor. Also noticed that secretions are creamy frederick/yellow more frequently - sm - mod amount. Patient is not in distress or in pain.
[2019-04-27] MEDS: FENTANYL-0.9 % NACL/PF 100 ML IV PRN ×3 (05:06→19:56)
[2019-04-27 05:10] LABS: BASOPHILS % (AUTO) 0 % (0-1); EOSINOPHILS % (AUTO) 0 % (0-6); HEMATOCRIT 41.8 % (42.0-52.0); HEMOGLOBIN 14.1 g/dl (14.0-17.9); LYMPHOCYTES # (AUTO) 0.6 X10'3 (1.1-4.8); LYMPHOCYTES % (AUTO) 7.2 % (21-51); MEAN CORPUSCULAR HEMOGLOBIN 33.4 PG (27.0-31.0); MEAN CORPUSCULAR HGB CONC 33.7 g/dL (33.0-36.5); MEAN CORPUSCULAR VOLUME 99.3 FL (78-98); MEAN PLATELET VOLUME 7.7 FL (7.4-10.4); MONOCYTES # (AUTO) 0.8 X10'3 (0-0.9); MONOCYTES % (AUTO) 9.5 % (2-12); NEUTROPHILS # (AUTO) 6.6 X10'3 (1.8-7.7); NEUTROPHILS % (AUTO) 83.3 % (42-75); PLATELET COUNT 196 X10'3 (140-440); RED BLOOD COUNT 4.21 X10'6 (4.70-6.10); RED CELL DISTRIBUTION WIDTH 14.6 % (11.5-14.5)
[2019-04-27 05:34] LABS: ALANINE AMINOTRANSFERASE 44 U/L (12-78); ALBUMIN 2.4 G/DL (3.4-5.0); ALBUMIN/GLOBULIN RATIO 0.8 (1.1-1.5); ALKALINE PHOSPHATASE 53 IU/L (46-116); ANION GAP 7 (8-16); ASPARTATE AMINO TRANSFERASE 15 U/L (10-37); BILIRUBIN,TOTAL 0.5 MG/DL (0.1-1.0); BLOOD UREA NITROGEN 18 MG/DL (7-18); BUN/CREATININE RATIO 39.1 (5.4-32.0); CHLORIDE 105 MMOL/L (99-107); CREATININE 0.46 MG/DL (0.60-1.10); GLUCOSE 138 MG/DL (70-104); PHOSPHORUS 3.5 MG/DL (2.3-4.5); SODIUM 135 MMOL/L (135-145); TOTAL CARBON DIOXIDE 22.6 MMOL/L (24-32); TOTAL PROTEIN 5.4 G/DL (6.4-8.2); eGFR > 90 ML/MIN
--- NOTE | 2019-04-27 07:25 | NUR ---
Patient in room CICU 2007. I have received report from Jose AVILA and had the opportunity to ask questions and assume patient care. patient laying in bed wide awake, on ventilator Fio2 55% peep of 7 satign 92%, keita draining to gravity, vital signs stable will continue to monitor
[2019-04-27] MEDS: aspirin 81mg tab.chew OGT SCH (08:06)
[2019-04-27] MEDS: thiamine 100mg tablet OGT SCH (08:06)
[2019-04-27] MEDS: folic acid 1mg tablet OGT SCH (08:06)
[2019-04-27] MEDS: carVEDilol 3.125mg tablet OGT SCH ×2 (08:06→19:43)
[2019-04-27] MEDS: QUEtiapine 25mg tablet OGT SCH (08:06)
[2019-04-27] MEDS: heparin, porcine 5000 units/ml vial SQ SCH ×2 (08:06→19:43)
[2019-04-27] MEDS: lactobacillus rhamnosus 10,000 MMU CELLS/CAPSULE PO SCH ×2 (08:06→19:43)
[2019-04-27] MEDS: docusate sodium 100mg/10ml UD cup OGT SCH ×2 (08:06→19:43)
[2019-04-27] MEDS: multivitamin oral liquid (Certavite) 5ml cup OGT SCH (08:06)
[2019-04-27] MEDS: sertraline 50mg tablet OGT SCH (08:07)
[2019-04-27] MEDS: lisinopril 2.5mg tablet OGT SCH (08:07)
[2019-04-27] MEDS: CefTRIAXone/D5W-Rocephin 1gm 50 ML IV SCH (08:08)
[2019-04-27] MEDS: lansoprazole 15mg solutab OGT SCH (08:10)
[2019-04-27] MEDS: levoFLOXACIN-Levaquin 750MG/D5 150 ML IV SCH (11:17)
--- NOTE | 2019-04-27 11:56 | NUR ---
I have reviewed and agree with all medications administered and interventions performed by [employer] student(glenroy lewis) Addendum: 04/27/19 at 1156 by Neena Torres RT Amended: Links added.
--- NOTE | 2019-04-27 18:17 | NUR ---
Problems reprioritized. Patient report given, questions answered & plan of care reviewed with Jose Caballero.
[2019-04-27] MEDS: mirtazapine 15mg tablet OGT SCH (20:58)
[2019-04-27] MEDS: insulin glargine (Lantus) pen - multi-dose SQ SCH (20:58)
[2019-04-27] MEDS: quetiapine 100mg tablet OGT SCH (20:58)
[2019-04-28] VITALS (24 sets, daily range): BP systolic 108–167; BP diastolic 37–90
[2019-04-28] MEDS: mineral oil/petrolatum ophthal oint EACHEYE SCH ×4 (02:14→21:18)
[2019-04-28] MEDS: methylPREDNISolone sod succ 125mg/2ml vial IV SCH ×4 (02:14→21:19)
[2019-04-28] MEDS: ipratropium/albuterol 3ml nebule NEB SCH ×4 (03:02→20:47)
[2019-04-28 03:10] LABS: ABG BASE EXCESS 4.1 mmol/L (-2.0-3.0); ABG HCO3 28.3 mmol/L (22.0-26.0); ABG OXYGEN SATURATION 94.6 % (95-98); ABG PCO2 (T) 40.4 mmHg (35.0-48.0); ABG PH (T) 7.462 (7.350-7.450); ABG PO2 (T) 75.5 mmHg (83-108); ALLEN'S TEST Positive; FCOHb 1.3 % (0.5-1.5); FMetHb 0.1 % (0.3-1.12); FO2Hb 93.3 % (94-100); MINUTE VOLUME 9 L/min; PATIENT TEMPERATURE 36.8; PEEP 7 cm H2O; RESPIRATORY RATE 22 b/min; RESPIRATORY RATE (OBSERVED) 24 b/min; TOTAL HEMOGLOBIN 14.5 G/dl (14.0-18.0)
[2019-04-28] MEDS: FENTANYL-0.9 % NACL/PF 100 ML IV PRN ×3 (03:31→18:09)
[2019-04-28] MEDS: dexmedetomidin/NS 400mcg/100ml 100 ML IV SCH ×4 (04:23→20:05)
[2019-04-28 05:21] LABS: BASOPHILS % (AUTO) 0 % (0-1); EOSINOPHILS % (AUTO) 0.1 % (0-6); HEMATOCRIT 42.2 % (42.0-52.0); HEMOGLOBIN 14.3 g/dl (14.0-17.9); LYMPHOCYTES # (AUTO) 0.5 X10'3 (1.1-4.8); LYMPHOCYTES % (AUTO) 6.6 % (21-51); MEAN CORPUSCULAR HEMOGLOBIN 33.5 PG (27.0-31.0); MEAN CORPUSCULAR HGB CONC 33.9 g/dL (33.0-36.5); MEAN PLATELET VOLUME 7.7 FL (7.4-10.4); MONOCYTES # (AUTO) 0.7 X10'3 (0-0.9); MONOCYTES % (AUTO) 8.3 % (2-12); NEUTROPHILS # (AUTO) 6.9 X10'3 (1.8-7.7); PLATELET COUNT 173 X10'3 (140-440); RED BLOOD COUNT 4.26 X10'6 (4.70-6.10); RED CELL DISTRIBUTION WIDTH 14.8 % (11.5-14.5); WHITE BLOOD COUNT 8.1 X10'3 (4.5-11.0)
[2019-04-28 05:35] LABS: ALBUMIN 2.1 G/DL (3.4-5.0); ANION GAP 11 (8-16); BLOOD UREA NITROGEN 19 MG/DL (7-18); CALCIUM 7.7 MG/DL (8.5-10.1); CHLORIDE 104 MMOL/L (99-107); GLUCOSE 152 MG/DL (70-104); SODIUM 136 MMOL/L (135-145); TOTAL CARBON DIOXIDE 21.3 MMOL/L (24-32); eGFR > 90 ML/MIN
[2019-04-28] MEDS: midazolam 100mg in NS 100ml 100 ML IV PRN ×3 (05:35→16:32)
[2019-04-28 05:37] LABS: POTASSIUM 4.6 MMOL/L (3.5-5.1)
--- NOTE | 2019-04-28 06:30 | NUR ---
Patient in room CICU 2007. I have received report from Jose AVILA and had the opportunity to ask questions and assume patient care. Patient laying in bed with eyes open on ventilator, vital signs stable, keita to gravity, vent settings fio2 45% peep 7 rate of 22, pressure support of 20. no signs of distress or discomfort will continue to monitor
[2019-04-28] MEDS: multivitamin oral liquid (Certavite) 5ml cup OGT SCH (08:21)
[2019-04-28] MEDS: docusate sodium 100mg/10ml UD cup OGT SCH ×2 (08:21→21:19)
[2019-04-28] MEDS: heparin, porcine 5000 units/ml vial SQ SCH ×2 (08:22→21:20)
[2019-04-28] MEDS: sertraline 50mg tablet OGT SCH (08:22)
[2019-04-28] MEDS: thiamine 100mg tablet OGT SCH (08:22)
[2019-04-28] MEDS: carVEDilol 3.125mg tablet OGT SCH ×2 (08:22→20:00)
[2019-04-28] MEDS: lisinopril 2.5mg tablet OGT SCH (08:22)
[2019-04-28] MEDS: lactobacillus rhamnosus 10,000 MMU CELLS/CAPSULE PO SCH ×2 (08:23→21:21)
[2019-04-28] MEDS: lansoprazole 15mg solutab OGT SCH (08:23)
[2019-04-28] MEDS: aspirin 81mg tab.chew OGT SCH (08:23)
[2019-04-28] MEDS: folic acid 1mg tablet OGT SCH (08:23)
[2019-04-28] MEDS: levoFLOXACIN-Levaquin 750MG/D5 150 ML IV SCH (08:23)
[2019-04-28] MEDS: QUEtiapine 25mg tablet OGT SCH (08:25)
--- NOTE | 2019-04-28 11:15 | NUR ---
PRESSURE ULCER EDUCATION: DEFINITION: A pressure ulcer is an area of skin that breaks down when you stay in one position too long. The constant pressure against the skin reduces the blood flow to that area and the affected tissue dies. CAUSES: "Being bedridden or in a wheelchair "Fragile skin "Having a chronic condition, such as diabetes or vascular disease "Inability to move certain parts of your body without assistance "Older age "Incontinence of urine or stool SYMPTOMS: "A reddened area that DOES NOT turn white when pressed on - this can be the beginning of a pressure ulcer "A blister, deep sore or a crater - these can be advanced pressure ulcers FIRST AID: "Relieve the pressure on this area "Keep the area clean and dry "Call your primary doctor if you see any of the above symptoms "DO NOT massage the area "DO NOT use a donut shaped or ring shaped pillow- these actually interfere with the blood flow and cause complications PREVENTION: "Check for pressure ulcers everyday "Change position at least every two hours to relieve pressure "Use items that help relieve pressure- pillows, sheepskin, foam padding, and powders. "Keep skin clean and dry "Eat healthy well balanced meals "Exercise daily IF YOU SEE ANY OF THESE SYMPTOMS WHILE IN THE HOSPITAL - TELL YOUR NURSE IMMEDIATELY. IF YOU SEE ANY OF THESE SYMPTOMS WHILE AT HOME OR HAVE ANY QUESTIONS OR CONCERNS ABOUT PRESSURE ULCERS - CALL YOUR PRIMARY DOCTOR IMMEDIATELY. Addendum: 04/28/19 at 1116 by Michelle Guevara RN Amended: Links added.
--- NOTE | 2019-04-28 12:57 | NUR ---
Reassessment: Pt remains intubated, not sedated, and tolerating TF at goal with low GRV 3-70 mL and no signs of refeeding. Wt remains stable. LBM 7, receiving routine Colace. Will continue to follow. Recommend: 1. Continuous TF with Vital AF at 65 ml/hr to provide total volume 1560 ml, 1872 cals, 117 gm protein, and 1265 ml water. 2. Additional water flush 200 ml q 4 hours 3. Prealbumin q Saturday and , daily wts 4. When extubated, advance diet as medically indicated to regular 5. Continue Thiamine, Folic acid, MVI given Etoh hx 6. Routine bowel care Addendum: 04/28/19 at [address] Amended: Links added.
--- NOTE | 2019-04-28 18:30 | NUR ---
Problems reprioritized. Patient report given, questions answered & plan of care reviewed with Jose AVILA.
[2019-04-28] MEDS: insulin glargine (Lantus) pen - multi-dose SQ SCH (21:00)
[2019-04-28] MEDS: quetiapine 100mg tablet OGT SCH (21:18)
[2019-04-28] MEDS: mirtazapine 15mg tablet OGT SCH (21:18)
[2019-04-29] VITALS (22 sets, daily range): BP systolic 92–175; BP diastolic 56–99
[2019-04-29] MEDS: FENTANYL-0.9 % NACL/PF 100 ML IV PRN (00:31)
--- NOTE | 2019-04-29 00:50 | NUR ---
IN SPITE OF SEDATION, RESTRAINTS FREEDOM SPLINTS AND CLOSE MONITORING. PATIENT HAS EXTUBATED HIMSELF. RT PLACED PATIENT ON BIPAP - 60 %, SAT 20, 15/8. NO DISTRESS. PATIENT GROGGY BUT SPEAKS. ORIENTED TO SELF. PATIENT STATES HE DOES NOT KNOW WHAT HAPPENED. I REORIENTED PATIENT TO TIME AND EVENTS. PATIENT IS NOT IN DISTRESS, VS REMAIN STABLE. PATIENT DENIES PAIN. SITTER TO BE AT BEDSIDE. RESTRAINS ON FOR SAFETY. FENTANYL GTT AND VERSED GTT DISCONTINUED ap. UTE AVALOS NP AWARE- PRECEDEX TO CONTINUE
[2019-04-29] MEDS: dexmedetomidin/NS 400mcg/100ml 100 ML IV SCH ×2 (01:21→06:13)
[2019-04-29 02:01] LABS: ABG BASE EXCESS 5.3 mmol/L (-2.0-3.0); ABG HCO3 30.3 mmol/L (22.0-26.0); ABG OXYGEN SATURATION 98.8 % (95-98); ABG PCO2 (T) 44.9 mmHg (35.0-48.0); ABG PH (T) 7.446 (7.350-7.450); ABG PO2 (T) 143.5 mmHg (83-108); ALLEN'S TEST Positive; FCOHb 1.4 % (0.5-1.5); FMetHb 0.1 % (0.3-1.12); FO2Hb 97.3 % (94-100); MINUTE VOLUME 14 L/min; PATIENT TEMPERATURE 36.6; RESPIRATORY RATE 20 b/min; RESPIRATORY RATE (OBSERVED) 21 b/min; TOTAL HEMOGLOBIN 14.8 G/dl (14.0-18.0)
[2019-04-29] MEDS: methylPREDNISolone sod succ 125mg/2ml vial IV SCH ×4 (02:24→20:40)
[2019-04-29] MEDS: ipratropium/albuterol 3ml nebule NEB SCH ×4 (02:57→20:53)
--- NOTE | 2019-04-29 06:30 | NUR ---
Patient in room CICU 2007. I have received report from Jose AVILA and had the opportunity to ask questions and assume patient care. Patient laying in bed with eyes closed, on bipap, 30% fio2, sitter at bedside restraints in place as patient has tried to pull of bipap. vital signs stable will continue to monitor
[2019-04-29] MEDS: sertraline 50mg tablet OGT SCH (09:08)
[2019-04-29] MEDS: folic acid 1mg tablet OGT SCH (09:09)
[2019-04-29] MEDS: lisinopril 2.5mg tablet OGT SCH (09:09)
[2019-04-29] MEDS: lansoprazole 15mg solutab OGT SCH (09:10)
[2019-04-29] MEDS: lactobacillus rhamnosus 10,000 MMU CELLS/CAPSULE PO SCH ×2 (09:11→20:40)
[2019-04-29] MEDS: QUEtiapine 25mg tablet OGT SCH (09:11)
[2019-04-29] MEDS: aspirin 81mg tab.chew OGT SCH (09:12)
[2019-04-29] MEDS: thiamine 100mg tablet OGT SCH (09:12)
[2019-04-29] MEDS: carVEDilol 3.125mg tablet OGT SCH ×2 (09:12→20:40)
[2019-04-29] MEDS: docusate sodium 100mg/10ml UD cup OGT SCH ×2 (09:18→20:00)
[2019-04-29] MEDS: multivitamin oral liquid (Certavite) 5ml cup OGT SCH (09:20)
[2019-04-29] MEDS: levoFLOXACIN-Levaquin 750MG/D5 150 ML IV SCH (09:32)
[2019-04-29] MEDS: heparin, porcine 5000 units/ml vial SQ SCH ×2 (09:36→20:40)
--- NOTE | 2019-04-29 10:30 | NUR ---
Per Dr. Park , start feeding patient, D/C precedex and D5 1/2 Ns. and D/C blood glucose checks No other new orders at this time
--- NOTE | 2019-04-29 10:41 | NUR ---
Reassessment: Pt self extubated and TF has been d/c'ed. Pt on BiPAP. Pt s/p swallow eval with RN and pt tolerated per RN at critical care rounds, MD philomena NICHOLSON diet advancement, pending diet order. Will continue to follow. Recommend: 1. Advance diet as medically indicated to regular 2. Continue Thiamine, Folic acid, MVI given Etoh hx 3. Routine bowel care 4. Wt per rx Addendum: 04/29/19 at [address] Amended: Links added.
--- NOTE | 2019-04-29 11:45 | NUR ---
Patient had a large loose bowel movement, last recorded bowel movement was 7/2, patient started to Desat, placed patient back on bipap to bring sats up, patient has been previously tolerating 6L NC so long as he does not over exert himself, he does not appear to have much reserves.
[2019-04-29] MEDS ORDERED: ipratropium/albuterol 3ml nebule NEB PRN (11:50)
[2019-04-29] MEDS ORDERED: racepinephrine 11.25mg/0.5ml nebule NEB PRN (11:50)
--- NOTE | 2019-04-29 18:00 | NUR ---
Patient in room CICU 2007. I have received report from Jose AVILA and had the opportunity to ask questions and assume patient care. patient sitting up in bed with bipap on, sitter at bedside, restraints still in place, precedex infusing to R FA IV, keita to gravity, vital signs stable will continue to monitor
--- NOTE | 2019-04-29 18:35 | NUR ---
Patient in room CICU 2007. I have received report from Juany AVILA, and had the opportunity to ask questions and assume patient care.
--- NOTE | 2019-04-29 18:38 | NUR ---
Problems reprioritized. Patient report given, questions answered & plan of care reviewed with Amanda AVILA.
--- NOTE | 2019-04-29 20:00 | NUR ---
PT is resting in bed watching TV with no s/s of distress noted at this time. PT receiving 6L O2 to NC and tolerating well, O2 sat >90%. VSS. Mack in place and draining to gravity. Bed is locked and low. Call light is within reach. Will continue to monitor.
[2019-04-29] MEDS: quetiapine 100mg tablet OGT SCH (20:40)
[2019-04-29] MEDS: mirtazapine 15mg tablet OGT SCH (20:40)
[2019-04-29] MEDS: insulin glargine (Lantus) pen - multi-dose SQ SCH (20:41)
--- NOTE | 2019-04-29 23:00 | NUR ---
PT continues to rest with no s/s of distress noted at this time. VSS. Bed is locked and low. Call light is within reach. Will continue to monitor.
[2019-04-30] VITALS (16 sets, daily range): BP systolic 94–134; BP diastolic 66–86
[2019-04-30] MEDS: methylPREDNISolone sod succ 125mg/2ml vial IV SCH ×2 (02:39→08:19)
[2019-04-30] MEDS: ipratropium/albuterol 3ml nebule NEB SCH ×3 (02:54→14:11)
[2019-04-30 05:17] LABS: BASOPHILS % (AUTO) 0.1 % (0-1); EOSINOPHILS % (AUTO) 0.1 % (0-6); HEMATOCRIT 46.2 % (42.0-52.0); HEMOGLOBIN 15.3 g/dl (14.0-17.9); LYMPHOCYTES % (AUTO) 7.9 % (21-51); MEAN CORPUSCULAR HGB CONC 33.1 g/dL (33.0-36.5); MEAN CORPUSCULAR VOLUME 99.5 FL (78-98); MEAN PLATELET VOLUME 7.6 FL (7.4-10.4); MONOCYTES # (AUTO) 0.9 X10'3 (0-0.9); MONOCYTES % (AUTO) 7.1 % (2-12); NEUTROPHILS # (AUTO) 10.7 X10'3 (1.8-7.7); NEUTROPHILS % (AUTO) 84.8 % (42-75); PLATELET COUNT 226 X10'3 (140-440); RED BLOOD COUNT 4.64 X10'6 (4.70-6.10); RED CELL DISTRIBUTION WIDTH 14.9 % (11.5-14.5); WHITE BLOOD COUNT 12.6 X10'3 (4.5-11.0)
[2019-04-30 05:59] LABS: ALANINE AMINOTRANSFERASE 61 U/L (12-78); ALBUMIN 2.9 G/DL (3.4-5.0); ALKALINE PHOSPHATASE 60 IU/L (46-116); ANION GAP 8 (8-16); ASPARTATE AMINO TRANSFERASE 24 U/L (10-37); BILIRUBIN,TOTAL 0.7 MG/DL (0.1-1.0); BLOOD UREA NITROGEN 18 MG/DL (7-18); BUN/CREATININE RATIO 23.4 (5.4-32.0); CALCIUM 8.8 MG/DL (8.5-10.1); CHLORIDE 103 MMOL/L (99-107); CREATININE 0.77 MG/DL (0.60-1.10); GLUCOSE 120 MG/DL (70-104); MAGNESIUM 1.9 MG/DL (1.5-2.4); PHOSPHORUS 4.3 MG/DL (2.3-4.5); POTASSIUM 4.5 MMOL/L (3.5-5.1); SODIUM 140 MMOL/L (135-145); TOTAL CARBON DIOXIDE 29.5 MMOL/L (24-32); TOTAL PROTEIN 5.9 G/DL (6.4-8.2); eGFR > 90 ML/MIN
--- NOTE | 2019-04-30 06:46 | NUR ---
Problems reprioritized. Patient report given, questions answered & plan of care reviewed with Ted AVILA.
[2019-04-30] MEDS ORDERED: acetaminophen 325mg tablet PO PRN (07:10)
[2019-04-30] MEDS ORDERED: dextrose ORAL solution 15 GM/59 ML bottle PO PRN ×2 (07:11→07:12)
[2019-04-30] MEDS ORDERED: aspirin 81mg tab.chew PO SCH (07:11)
[2019-04-30] MEDS ORDERED: carVEDilol 3.125mg tablet PO SCH (07:11)
[2019-04-30] MEDS ORDERED: folic acid 1mg tablet PO SCH (07:12)
[2019-04-30] MEDS ORDERED: docusate sodium 100mg/10ml UD cup PO SCH (07:12)
[2019-04-30] MEDS ORDERED: docusate sod 100mg capsule PO SCH (07:13)
[2019-04-30] MEDS ORDERED: lansoprazole 15mg solutab PO SCH (07:13)
[2019-04-30] MEDS ORDERED: lisinopril 2.5mg tablet PO SCH (07:14)
[2019-04-30] MEDS ORDERED: mirtazapine 15mg tablet PO SCH (07:14)
[2019-04-30] MEDS ORDERED: quetiapine 100mg tablet PO SCH (07:15)
[2019-04-30] MEDS ORDERED: sertraline 50mg tablet PO SCH (07:18)
[2019-04-30] MEDS ORDERED: QUEtiapine 25mg tablet PO SCH (07:18)
[2019-04-30] MEDS ORDERED: thiamine 100mg tablet PO SCH (07:19)
[2019-04-30] MEDS: lactobacillus rhamnosus 10,000 MMU CELLS/CAPSULE PO SCH (08:15)
[2019-04-30] MEDS: levoFLOXACIN-Levaquin 750MG/D5 150 ML IV SCH (08:19)
[2019-04-30] MEDS: heparin, porcine 5000 units/ml vial SQ SCH (08:19)
[2019-04-30] MEDS ORDERED: multivitamins, therapeutics tablet PO SCH (10:49)
--- NOTE | 2019-04-30 11:12 | NUR ---
Reassessment:Patient's diet order was advanced to regular yesterday. Has no teeth per RN however reports that he ate his breakfast this morning with no issue. Does not require texture modification at this time. Pt pending discharge for rehab. LBM yesterday. Will continue to follow. Recommend: 1. Continue regular diet 2. Continue Thiamine, Folic acid, MVI given Etoh hx 3. Routine bowel care 4. Wt per rx Addendum: 04/30/19 at [address] Amended: Links added.
[2019-04-30] MEDS ORDERED: MULT-1179 PO (14:15)
[2019-04-30] MEDS ORDERED: FOLI1TAB16 PO (14:15)
[2019-04-30] MEDS ORDERED: thiamine tablet PO (14:15)
[2019-04-30] MEDS ORDERED: PRED10TA23 PO (14:15)
[2019-04-30] MEDS ORDERED: LEVO750T21 PO (14:15)
--- NOTE | 2019-04-30 14:30 | NUR ---
Mack discontinued per MD order. No complications
--- NOTE | 2019-04-30 15:26 | NUR ---
report called to marcos foreman [facility]
--- NOTE | 2019-04-30 16:00 | NUR ---
Patient picked up by transport with all belongings.
[2019-04-30] MEDS ORDERED: methylPREDNISolone sod succ 125mg/2ml vial IV SCH (20:00)
== END 2019-04-30 15:57 | DRG 194 ==
LOC: ER 00:35 → PCU 3S 03:16 → CMPBEDREQ 03:28 → PCU 3S 09:39 → CICU 2S 10:07
PROVIDERS: ADMIT Internal Medicine; ATTEND Internal Medicine Critical Care Medicine
PROC: 5A1955Z Respiratory Ventilation, Greater than 96 Consecutive Hours (ICD-10-PCS; principal; 2019-04-22)
PROC: 0BH17EZ Insertion of Endotracheal Airway into Trachea, Via Natural or Artificial Opening (ICD-10-PCS; 2019-04-22)
PROC: 5A09357 Assistance with Respiratory Ventilation, Less than 24 Consecutive Hours, Continuous Positive Airway Pressure (ICD-10-PCS; 2019-04-22)
PROC: 5A09357 Assistance with Respiratory Ventilation, Less than 24 Consecutive Hours, Continuous Positive Airway Pressure (ICD-10-PCS; 2019-04-29)
DX: I50.23 Acute on chronic systolic (congestive) heart failure (principal); J96.21 Acute and chronic respiratory failure with hypoxia; J15.0 Pneumonia due to Klebsiella pneumoniae; D75.81 Myelofibrosis; I42.9 Cardiomyopathy, unspecified; E83.42 Hypomagnesemia; J84.10 Pulmonary fibrosis, unspecified; E83.51 Hypocalcemia; F12.90 Cannabis use, unspecified, uncomplicated; F19.10 Other psychoactive substance abuse, uncomplicated; F41.9 Anxiety disorder, unspecified; E87.6 Hypokalemia; F10.229 Alcohol dependence with intoxication, unspecified; F31.9 Bipolar disorder, unspecified; J43.9 Emphysema, unspecified; K21.9 Gastro-esophageal reflux disease without esophagitis; Z87.891 Personal history of nicotine dependence; Z79.899 Other long term (current) drug therapy; Z79.82 Long term (current) use of aspirin; E87.5 Hyperkalemia
CPT/HCPCS: 36415; 36600; 71045; 80048; 80053; 80202; 80305; 80320; 81001; 82330; 82803; 82948; 83036; 83605; 83735; 83880; 84100; 84132; 84134; 84145; 85018; 85025; 85610; 85730; 87040; 87070; 87077; 87081; 87186; 93005; 93306; 94002; 94003; 94640; 94660; 94760; 96365; 96366; 96368; 96375; 97110; 97162; 97530; 99291; G0378; J0696; J1644; J1815; J1940; J1956; J2060; J2250; J2543; J2920; J2930; J3010; J3370; J3411; J3475; J3480; J7030; J7050